=== PATIENT | female | born 1960 | race Caucasian/White ===

== ENCOUNTER → 2018-10-11 10:24 | Outpatient (CLI) | payer OTHER, SELFPAY ==
--- NOTE | 2018-10-11 10:27 | BI_ITS ---
MAMMOGRAPHY - BILATERAL SCREENING 3-D SYLVIA SYNTHESIS REASON FOR EXAM: Female, 58 years old. Bilateral Screening 3-D tomosynthesis PERTINENT HISTORY: No significant family history. TECHNIQUE: 2-D mammograms and 3-D Sylvia synthesis of the breast (s) were performed. CAD was performed. COMPARISON: October 08, 2017 FINDINGS: The breast composition is of heterogeneous dense fibroglandular tissue Scattered benign calcifications are seen. No dense spiculated masses or suspicious microcalcifications are identified. No architectural distortion is identified. There is no skin thickening or retraction. There are a few intramammary lymph nodes bilaterally There has been no significant change since the prior study of October 08, 2017. BI/SCREENING MAMM (CAD), BILAT IMPRESSION: No mammographic signs of malignancy. Routine yearly mammograms recommended. ASSESSMENT CATEGORY: BIRADS Category 1: Negative. A letter regarding these results will be sent to the patient by the facility within 30 days. FOLLOW UP RECOMMENDATION: Yearly follow up mammogram recommended. (A) Approximately 10% of breast cancers are not detected by mammography. A normal mammogram should not delay biopsy of a clinically suspicious abnormality. Electronically Signed: Minal Geiger, at 10:29 EST Tel , Service support ,
== END ==
PROVIDERS: Family Provider Family Medicine; PCP Family Medicine; Referring Provider Preventive Medicine Occupational Medicine; Visit Provider Preventive Medicine Occupational Medicine
DX: Z12.31 Encounter for screening mammogram for malignant neoplasm of breast (principal)
CPT/HCPCS: 77063; 77067

== ENCOUNTER → 2019-03-11 | Outpatient (CLI) | payer BC, SELFPAY ==
[2015-08-29 04:04] VITALS: BMI 31.8
[2019-03-11 08:51] LABS: Absolute Lymphocyte Count 2.87 X10^3/ul (0.83-4.51); Absolute Neutrophil Count 5.5 X10^3/uL (2.0-7.7); Basophil# 0.05 X10^3/uL; Basophil% 0.5 % (0-1); Eosinophil# 0.55 X10^3/uL; Eosinophils% 5.8 % (0-5); Hematocrit 42.8 % (37-47); Hemoglobin 14.2 g/dl (12.0-15.0); Lymphocyte # 2.87 X10^3/ul (4.0); Lymphocyte % 30.4 % (19-41); Mean Corp Hgb Conc 33.2 g/gl (32-36); Mean Corpuscular Hgb 28.3 pg (27.0-32.0); Mean Corpuscular Volume 85.4 fL (81-99); Mean Platelet Vol. 8.9 fl (6.2-12.0); Monocyte# 0.41 X10^3/uL; Monocyte% 4.3 % (0-10); Neutrophil # 5.53 X10^3/uL (2.7-7.7); Neutrophil % 58.7 % (47-70); Platelet Count 253 K/mm3 (150-450); RBC Distribution Width CV 13.8 % (11.6-14.6); RBC Distribution Width SD 42.5 fl (35.1-43.9); Red Blood Count 5.01 M/mm3 (4.2-5.4); White Blood Count 9.4 K/mm3 (4.4-11.0)
[2019-03-11 08:52] LABS: POSITIVE COUNT NO; POSITIVE DIFFERENTIAL NO; POSITIVE MORPHOLOGY NO
[2019-03-11 09:12] LABS: AST(SGOT) 21 U/L (15-37); Alanine Aminotransfer ALT/SGPT 45 U/L (13-56); Albumin, Serum 3.5 g/dL (3.2-5.0); Alkaline Phosphatase 99 U/L (45-117); Anion Gap 5 (5-15); BUN 12 mg/dL (7-18); BUN/Creat Ratio 12.3 RATIO (10-20); Calcium,Total 8.8 mg/dL (8.5-10.1); Chloride 105 mmol/L (98-107); Cholesterol 203 mg/dL (200); Creatinine, Serum 0.97 mg/dL (0.55-1.02); EST Glomerular Filtration Rate 62 mL/min (>60); Est Glom Filt Rate - Afr Amer 75 mL/min (>60); Globulin 3.5 g/dL (2.2-4.2); Glucose 240 mg/dL (74-106); High Density Lipoprotein 29 mg/dL; Sodium Level 139 mmol/L (136-145); Triglycerides 232 mg/dL; Very Low Density Lipoprotein 46 mg/dL (5-40)
== END | disposition home or self-care (01) ==
LOC: LAB.FUTURE 08:12
PROVIDERS: Family Provider Preventive Medicine Occupational Medicine; PCP Preventive Medicine Occupational Medicine; Referring Provider Preventive Medicine Occupational Medicine; Visit Provider Preventive Medicine Occupational Medicine
DX: Z00.00 Encounter for general adult medical examination without abnormal findings (principal)
CPT/HCPCS: 36415; 80053; 80061; 85025

== ENCOUNTER → 2019-10-06 11:43 | Outpatient (CLI) | payer BC, SELFPAY ==
[2019-10-06 13:24] LABS: Cholesterol 193 mg/dL (200); High Density Lipoprotein 47 mg/dL; Triglycerides 51 mg/dL; Very Low Density Lipoprotein 10 mg/dL (5-40)
== END ==
PROVIDERS: Family Provider Preventive Medicine Occupational Medicine; PCP Preventive Medicine Occupational Medicine; Referring Provider Preventive Medicine Occupational Medicine; Visit Provider Preventive Medicine Occupational Medicine
DX: E11.9 Type 2 diabetes mellitus without complications (principal)
CPT/HCPCS: 36415; 80061

== ENCOUNTER → 2019-10-24 07:30 | Outpatient (CLI) | payer BC, SELFPAY ==
--- NOTE | 2019-10-24 07:32 | BI_ITS ---
MAMMOGRAPHY - BILATERAL SCREENING REASON FOR EXAM: Female, 59 years old. Routine annual screening examination. PERTINENT HISTORY: Non-contributory. TECHNIQUE: Digital bilateral breast sylvia (3D mammographic acquisition) in the CC and MLO projections. 2-D mediolateral oblique (MLO) and craniocaudad (CC) views of both breasts were obtained. CAD: Full Field Digital Mammography with Computer Added Detection was performed. COMPARISON: Comparison is made with prior examination dated October 11, 2018 and October 08, 2017. FINDINGS: Breast Composition: The breasts are heterogeneously dense, which may obscure small masses. There are no dominant masses or suspicious calcifications. Stable benign appearing bilateral axillary lymph nodes. No other significant abnormalities are identified. There has been no significant change since the prior study. BI/SCREEN MAMM (CAD) W/SYLVIA BILAT IMPRESSION: Stable bilateral screening mammogram. Yearly follow-up mammogram recommended. (A) ASSESSMENT CATEGORY: BIRADS Category 2: Benign. A letter regarding these results will be sent to the patient by the facility within 30 days. Approximately 10% of breast cancers are not detected by mammography. A normal mammogram should not delay biopsy of a clinically suspicious abnormality. [id number] Electronically Signed: Rubén Bejarano, at 9:33 EST , Service support ,
== END ==
PROVIDERS: Family Provider Preventive Medicine Occupational Medicine; PCP Preventive Medicine Occupational Medicine; Referring Provider Preventive Medicine Occupational Medicine; Visit Provider Preventive Medicine Occupational Medicine
DX: Z12.31 Encounter for screening mammogram for malignant neoplasm of breast (principal)
CPT/HCPCS: 77063; 77067

== ENCOUNTER → 2020-05-21 08:19 | Outpatient (CLI) | payer BC, SELFPAY ==
[2015-08-29 04:04] VITALS: BMI 31.8
[2020-05-21 08:58] LABS: AST(SGOT) 14 U/L (15-37); Alanine Aminotransfer ALT/SGPT 22 U/L (13-56); Cholesterol 141 mg/dL (200); High Density Lipoprotein 45 mg/dL; Triglycerides 86 mg/dL; Very Low Density Lipoprotein 17 mg/dL (5-40)
== END ==
PROVIDERS: PCP Preventive Medicine Occupational Medicine; Referring Provider Preventive Medicine Occupational Medicine; Visit Provider Preventive Medicine Occupational Medicine
DX: E78.00 Pure hypercholesterolemia, unspecified (principal)
CPT/HCPCS: 36415; 80061; 84450; 84460

== ENCOUNTER → 2020-11-22 08:15 | Outpatient (CLI) | payer BC, SELFPAY ==
[2015-08-29 04:04] VITALS: BMI 31.8
[2020-11-22 09:11] LABS: Microalbumin,Random Urine 13.5 mg/L (NO RANGE EST.)
[2020-11-22 09:21] LABS: ALB/GLOB Ratio 1.2 RATIO (0.9-2.4); AST(SGOT) 12 U/L (15-37); Alanine Aminotransfer ALT/SGPT 19 U/L (13-56); Albumin, Serum 4.1 g/dL (3.2-5.0); Alkaline Phosphatase 60 U/L (45-117); Anion Gap 4 (5-15); BUN 14 mg/dL (7-18); BUN/Creat Ratio 17.3 RATIO (10-20); Calcium,Total 9.6 mg/dL (8.5-10.1); Chloride 107 mmol/L (98-107); Cholesterol 139 mg/dL (200); Creatinine, Serum 0.81 mg/dL (0.55-1.02); EST Glomerular Filtration Rate 76 mL/min (>60); Est Glom Filt Rate - Afr Amer 92 mL/min (>60); Globulin 3.5 g/dL (2.2-4.2); Glucose 115 mg/dL (74-106); High Density Lipoprotein 43 mg/dL; Potassium 3.9 mmol/L (3.5-5.1); Protein, Total 7.6 g/dL (6.4-8.2); Sodium Level 140 mmol/L (136-145); Triglycerides 101 mg/dL; Very Low Density Lipoprotein 20 mg/dL (5-40)
== END ==
PROVIDERS: PCP Preventive Medicine Occupational Medicine; Visit Provider Preventive Medicine Occupational Medicine
DX: E11.9 Type 2 diabetes mellitus without complications (principal); E78.00 Pure hypercholesterolemia, unspecified
CPT/HCPCS: 36415; 80053; 80061; 82043

== ENCOUNTER 2021-01-03 10:56 | Outpatient (RCR) | payer BC, SELFPAY ==
[2015-08-29 04:04] VITALS: BMI 31.8
[2021-01-03] MEDS: COVID-19 VACC, MRNA(PFIZER)/PF 30 MCG/0.3 ML SYRINGE IM (08:48)
[2021-01-24] MEDS: COVID-19 VACC, MRNA(PFIZER)/PF 30 MCG/0.3 ML SYRINGE IM (08:29)
== END 2021-01-03 23:59 ==
LOC: IMMUN 10:56
PROVIDERS: PCP Preventive Medicine Occupational Medicine; Visit Provider Family Medicine
DX: Z23 Encounter for immunization (principal)
CPT/HCPCS: 0001A; 0002A; 91300

== ENCOUNTER → 2021-07-15 10:28 | Outpatient (CLI) | payer BC, SELFPAY ==
--- NOTE | 2021-07-15 10:30 | BI_ITS ---
MAMMOGRAPHY - BILATERAL SCREENING REASON FOR EXAM: Female, 61 years old. Routine annual screening examination. PERTINENT HISTORY: Non-contributory. TECHNIQUE: Digital bilateral breast sylvia (3D mammographic acquisition) in the CC and MLO projections. 2-D mediolateral oblique (MLO) and craniocaudad (CC) views of both breasts were obtained. CAD: Full Field Digital Mammography with Computer Added Detection was performed. COMPARISON: Comparison is made with prior study dated 10/24/2019 and 10/11/2018. FINDINGS: Breast Composition: The breasts are extremely dense, which lowers the sensitivity of mammography. There are no dominant masses or suspicious calcifications. Stable small benign-appearing bilateral axillary lymph nodes. No other significant abnormalities are identified. There has been no significant change since the prior study. BI/SCRN MAMM (CAD)W/SYLVIA BILAT IMPRESSION: Stable bilateral screening mammogram. Yearly follow-up mammogram recommended. (A) ASSESSMENT CATEGORY: BIRADS Category 2: Benign. A letter regarding these results will be sent to the patient by the facility within 30 days. Approximately 10% of breast cancers are not detected by mammography. A normal mammogram should not delay biopsy of a clinically suspicious abnormality. [id number] Electronically Signed: Rubén Bejarano MD at 12:09 EDT , Service support ,
== END ==
PROVIDERS: PCP Preventive Medicine Occupational Medicine; Referring Provider Preventive Medicine Occupational Medicine; Visit Provider Preventive Medicine Occupational Medicine
DX: Z12.31 Encounter for screening mammogram for malignant neoplasm of breast (principal)
CPT/HCPCS: 77063; 77067

== ENCOUNTER 2021-11-18 08:27 | Outpatient (CLI) | payer BC, SELFPAY ==
[2021-11-18 08:58] LABS: Hematocrit 42.5 % (37-47); Hemoglobin 13.4 g/dL (12.0-15.0); Mean Corp Hgb Conc 31.5 g/dL (32-36); Mean Corpuscular Hgb 27.2 pg (27.0-32.0); Mean Corpuscular Volume 86.2 fL (81-99); Mean Platelet Vol. 8.9 fl (6.2-12.0); Platelet Count 295 K/mm3 (150-450); RBC Distribution Width CV 13.7 % (11.6-14.6); Red Blood Count 4.93 M/mm3 (4.2-5.4); White Blood Count 8.8 K/mm3 (4.4-11.0)
[2021-11-18 09:33] LABS: ALB/GLOB Ratio 1.1 RATIO (0.9-2.4); AST(SGOT) 14 U/L (15-37); Alanine Aminotransfer ALT/SGPT 20 U/L (13-56); Albumin, Serum 3.8 g/dL (3.2-5.0); Alkaline Phosphatase 74 U/L (45-117); Anion Gap 6 (5-15); BUN 17 mg/dL (7-18); BUN/Creat Ratio 18.8 RATIO (10-20); Chloride 105 mmol/L (98-107); Cholesterol 118 mg/dL (200); Creatinine, Serum 0.91 mg/dL (0.55-1.02); EST Glomerular Filtration Rate 67 mL/min (>60); Est Glom Filt Rate - Afr Amer 81 mL/min (>60); Globulin 3.6 g/dL (2.2-4.2); Glucose 211 mg/dL (74-106); Hemoglobin A1c 6.3 % (3.8-5.6); High Density Lipoprotein 39 mg/dL; Potassium 3.8 mmol/L (3.5-5.1); Protein, Total 7.4 g/dL (6.4-8.2); Sodium Level 139 mmol/L (136-145); Triglycerides 94 mg/dL; Very Low Density Lipoprotein 19 mg/dL (5-40)
[2021-11-18 09:34] LABS: Microalbumin,Random Urine 26.6 mg/L (NO RANGE EST.)
== END 2021-11-18 23:59 | disposition short-term general hospital (02) ==
PROVIDERS: PCP Preventive Medicine Occupational Medicine; Referring Provider Preventive Medicine Occupational Medicine; Visit Provider Preventive Medicine Occupational Medicine
DX: Z00.00 Encounter for general adult medical examination without abnormal findings (principal); E11.9 Type 2 diabetes mellitus without complications
CPT/HCPCS: 36415; 80053; 80061; 82043; 83036; 85027

== ENCOUNTER → 2022-08-11 | Outpatient (CLI) | payer BC, SELFPAY ==
--- NOTE | 2022-08-11 10:29 | BI_ITS ---
MAMMOGRAPHY - BILATERAL SCREENING REASON FOR EXAM: Female, 62 years old. Routine annual screening examination. PERTINENT HISTORY: Non-contributory. TECHNIQUE: Digital bilateral breast sylvia (3D mammographic acquisition) in the CC and MLO projections. 2-D mediolateral oblique (MLO) and craniocaudad (CC) views of both breasts were obtained. CAD: Full Field Digital Mammography with Computer Added Detection was performed. COMPARISON: Comparison is made with prior study dated 07/15/2021 and 10/24/2019. FINDINGS: Breast Composition: The breasts are extremely dense, which lowers the sensitivity of mammography. There are no dominant masses or suspicious calcifications. Stable small benign appearing bilateral axillary lymph nodes. No other significant abnormalities are identified. There has been no significant change since the prior study. BI/SCRN MAMM (CAD)W/SYLVIA BILAT IMPRESSION: Stable bilateral screening mammogram. Yearly follow-up mammogram recommended. (A) ASSESSMENT CATEGORY: BIRADS Category 2: Benign. A letter regarding these results will be sent to the patient by the facility within 30 days. Approximately 10% of breast cancers are not detected by mammography. A normal mammogram should not delay biopsy of a clinically suspicious abnormality. [id number] Electronically Signed: Rubén Bejarano MD at 11:54 EDT ,
== END | disposition home or self-care (01) ==
LOC: OPBI 10:28
PROVIDERS: PCP Preventive Medicine Occupational Medicine; Visit Provider Preventive Medicine Occupational Medicine
DX: Z12.31 Encounter for screening mammogram for malignant neoplasm of breast (principal)
CPT/HCPCS: 77063; 77067

== ENCOUNTER → 2022-12-01 | Outpatient (CLI) | payer BC, SELFPAY ==
[2022-12-01 12:49] LABS: Hematocrit 41.3 % (37-47); Hemoglobin 12.8 g/dL (12.0-15.0); Mean Corpuscular Hgb 27.1 pg (27.0-32.0); Mean Corpuscular Volume 87.5 fL (81-99); Mean Platelet Vol. 9.6 fl (6.2-12.0); Platelet Count 315 K/mm3 (150-450); RBC Distribution Width CV 13.8 % (11.6-14.6); RBC Distribution Width SD 44.5 fl (35.1-43.9); Red Blood Count 4.72 M/mm3 (4.2-5.4); White Blood Count 10.4 K/mm3 (4.4-11.0)
[2022-12-01 13:15] LABS: ALB/GLOB Ratio 1.1 RATIO (0.9-2.4); AST(SGOT) 13 U/L (15-37); Alanine Aminotransfer ALT/SGPT 22 U/L (13-56); Albumin, Serum 3.8 g/dL (3.2-5.0); Alkaline Phosphatase 67 U/L (45-117); Anion Gap 7 (5-15); BUN 21 mg/dL (7-18); BUN/Creat Ratio 25.5 RATIO (10-20); Chloride 105 mmol/L (98-107); Cholesterol 124 mg/dL (200); Creatinine, Serum 0.82 mg/dL (0.55-1.02); EST Glomerular Filtration Rate 74 mL/min (>60); Est Glom Filt Rate - Afr Amer 90 mL/min (>60); Globulin 3.4 g/dL (2.2-4.2); Glucose 94 mg/dL (74-106); High Density Lipoprotein 37 mg/dL; Potassium 4.3 mmol/L (3.5-5.1); Protein, Total 7.2 g/dL (6.4-8.2); Sodium Level 139 mmol/L (136-145); Triglycerides 123 mg/dL; Very Low Density Lipoprotein 25 mg/dL (5-40)
[2022-12-01 13:18] LABS: Hemoglobin A1c 6.7 % (3.8-5.6)
== END | disposition home or self-care (01) ==
PROVIDERS: PCP Preventive Medicine Occupational Medicine; Referring Provider Preventive Medicine Occupational Medicine; Visit Provider Preventive Medicine Occupational Medicine
DX: Z00.00 Encounter for general adult medical examination without abnormal findings (principal); E11.9 Type 2 diabetes mellitus without complications
CPT/HCPCS: 36415; 80053; 80061; 83036; 85027

== ENCOUNTER → 2023-08-31 | Outpatient (CLI) | payer MEDICARE, SELFPAY ==
--- NOTE | 2023-08-31 14:15 | BI_ITS ---
MAMMOGRAPHY - BILATERAL SCREENING REASON FOR EXAM: Female, 63 years old. Routine annual screening examination. PERTINENT HISTORY: Daughter with breast cancer. TECHNIQUE: Digital bilateral breast sylvia (3D mammographic acquisition) in the CC and MLO projections. 2-D mediolateral oblique (MLO) and craniocaudad (CC) views of both breasts were obtained. CAD: Full Field Digital Mammography with Computer Added Detection was performed. COMPARISON: Comparison is made with prior examination August 11, 2022 and July 15, 2021. FINDINGS: Breast Composition: The breasts are extremely dense, which lowers the sensitivity of mammography. There are no dominant masses or suspicious calcifications. Stable benign-appearing bilateral axillary lymph nodes. No other significant abnormalities are identified. There has been no significant change since the prior study. BI/SCRN MAMM (CAD)W/SYLVIA BILAT IMPRESSION: Stable bilateral screening mammogram. Yearly follow-up mammogram recommended. (A) ASSESSMENT CATEGORY: BIRADS Category 2: Benign. A letter regarding these results will be sent to the patient by the facility within 30 days. Approximately 10% of breast cancers are not detected by mammography. A normal mammogram should not delay biopsy of a clinically suspicious abnormality. [id number] Electronically Signed: Rubén Bejarano MD at 15:13 EST ,
== END | disposition home or self-care (01) ==
LOC: OPBI 14:14
PROVIDERS: PCP Preventive Medicine Occupational Medicine; Referring Provider Preventive Medicine Occupational Medicine; Visit Provider Preventive Medicine Occupational Medicine
DX: Z12.31 Encounter for screening mammogram for malignant neoplasm of breast (principal); Z80.3 Family history of malignant neoplasm of breast
CPT/HCPCS: 77063; 77067

== ENCOUNTER → 2023-12-14 | Outpatient (CLI) | payer MEDICARE, SELFPAY ==
[2023-12-14 11:48] LABS: Hemoglobin A1c 6.9 % (3.8-5.6); Microalbumin,Random Urine 7.5 mg/L (NO RANGE EST.); Microalbumin:Creatinine Ratio 10.4 mg/g CRE (<30 mg/g CRE)
[2023-12-14 12:07] LABS: ALB/GLOB Ratio 1.3 RATIO (0.9-2.4); AST(SGOT) 24 U/L (15-37); Alanine Aminotransfer ALT/SGPT 29 U/L (13-56); Albumin, Serum 4.1 g/dL (3.2-5.0); Alkaline Phosphatase 67 U/L (45-117); Anion Gap 4 (5-15); BUN 14 mg/dL (7-18); BUN/Creat Ratio 18.9 RATIO (10-20); Calcium,Total 9.1 mg/dL (8.5-10.1); Chloride 110 mmol/L (98-107); Cholesterol 100 mg/dL (200); Creatinine, Serum 0.74 mg/dL (0.55-1.02); EST Glomerular Filtration Rate 84 mL/min (>60); Est Glom Filt Rate - Afr Amer 101 mL/min (>60); Globulin 3.1 g/dL (2.2-4.2); Glucose 99 mg/dL (74-106); High Density Lipoprotein 33 mg/dL; Protein, Total 7.2 g/dL (6.4-8.2); Sodium Level 141 mmol/L (136-145); Triglycerides 56 mg/dL; Very Low Density Lipoprotein 11 mg/dL (5-40)
== END | disposition home or self-care (01) ==
LOC: LAB 11:01
PROVIDERS: PCP Preventive Medicine Occupational Medicine; Visit Provider Preventive Medicine Occupational Medicine
DX: E11.9 Type 2 diabetes mellitus without complications (principal); E78.00 Pure hypercholesterolemia, unspecified
CPT/HCPCS: 36415; 80053; 80061; 82043; 82570; 83036

== ENCOUNTER → 2024-09-19 | Outpatient (CLI) | payer MEDICARE, SELFPAY | END | disposition home or self-care (01) | LOC: OPBI 10:59 | PROVIDERS: PCP Preventive Medicine Occupational Medicine; Referring Provider Preventive Medicine Occupational Medicine; Visit Provider Preventive Medicine Occupational Medicine | DX: Z12.31 Encounter for screening mammogram for malignant neoplasm of breast (principal) | CPT/HCPCS: 77063; 77067 ==

== ENCOUNTER 2025-03-13 18:45 | Emergency (ER) | payer MEDICARE, SELFPAY ==
[2025-03-13 18:46] VITALS: BP 138/75; PULSE 86; RESP 15; TEMP 36.2; O2SAT 99; BMI 26.6
--- NOTE | 2025-03-13 19:13 | US_ITS ---
PROCEDURE: GALLBLADDER 03/13/2025 REASON FOR EXAM: PAIN FINDINGS: Normal appearance to the liver and no evidence of intrahepatic biliary dilatation. No Hernandez's sign involving the gallbladder. No gallstones or pericholecystic fluid. Pancreas and right kidney unremarkable. No hydronephrosis. There is a cyst with septation in the right lobe of the liver measuring 61 x 68 x 76 mm US/Gallbladder IMPRESSION: Normal gallbladder. Liver cyst. [facility]
[2025-03-13] MEDS: Ondansetron 4 MG/2 ML Vial IV ×2 (19:20→20:35)
[2025-03-13] MEDS: 0.9% Normal Saline (1000mL) 1,000 ML 125 ML IV (19:20)
[2025-03-13] MEDS: Famotidine 200 MG/20 ML MDV 20 MG in 0.9% Normal Saline (Pres. free 8 ML 300 MG IV (19:22)
[2025-03-13 19:27] LABS: Absolute Lymphocyte Count 0.69 X10^3/uL (0.83-4.51); Absolute Neutrophil Count 8.2 X10^3/uL (2.0-7.7); Basophil# 0.03 X10^3/uL; Basophil% 0.3 % (0-1); Eosinophil# 0.31 X10^3/uL; Eosinophils% 3.2 % (0-5); Hematocrit 38.3 % (37-47); Hemoglobin 12.6 g/dL (12.0-15.0); Lymphocyte # 0.69 X10^3/ul (0.83-4.51); Lymphocyte % 7.1 % (19-41); Mean Corp Hgb Conc 32.9 g/dL (32-36); Mean Corpuscular Hgb 27.5 pg (27.0-32.0); Mean Corpuscular Volume 83.6 fL (81-99); Mean Platelet Vol. 8.7 fl (6.2-12.0); Monocyte# 0.39 X10^3/uL; NRBC Flagged by Analyzer 0 % (0-5); Neutrophil # 8.24 X10^3/uL (2.7-7.7); Neutrophil % 85.1 % (47-70); Platelet Count 263 K/mm3 (150-450); RBC Distribution Width CV 14.5 % (11.6-14.6); RBC Distribution Width SD 43.8 fl (35.1-43.9); Red Blood Count 4.58 M/mm3 (4.2-5.4); White Blood Count 9.7 K/mm3 (4.4-11.0)
--- NOTE | 2025-03-13 19:33 | ED.VIS.GI ---
HPI HPI - GI History of Present Illness Chief Complaint: Abd Pain Informant: patient Narrative Narrative: Presents for evaluation 2-week history of pain across her upper abdomen after she eats. States typically 30 minutes or an hour after she eats. She switched over to a brat diet. She states this is taking the edge off of symptoms. She cannot recall any specific meal that worsening her symptoms. She ate pancakes and hashbrowns this morning around 1030. There is no cheese no butter. Pain is across her abdomen. Nausea without vomiting. No black or bloody stools. No fever or chills. She has had 2 C-sections in the past denies any other abdominal surgeries. Allergies to penicillin and sulfa. Prior similar symptoms: No PFSH PFS Medical History (Updated 03/13/25 @ 21:[address] Atilio Sandoval DO) Diabetes mellitus Home Medications ?Medication ?Instructions ?Recorded ?Last Taken ?Type Buspirone Hcl 7.5 mg PO BID 08/29/15 Unknown History citalopram 20 mg tablet 20 mg PO DAILY 08/29/15 Unknown History atorvastatin 20 mg tablet 20 mg PO DAILY 03/13/25 Unknown History lisinopril 2.5 mg tablet 2.5 mg PO DAILY 03/13/25 Unknown History metformin 500 mg tablet,extended 2,000 mg PO DAILY 03/13/25 Unknown History release 24 hr ondansetron 4 mg disintegrating 4 mg PO Q8H PRN PRN Nausea #10 tabs 03/13/25 Unknown Rx tablet pantoprazole 40 mg tablet,delayed 40 mg PO DAILY #30 tabs 03/13/25 Unknown Rx release sucralfate 1 gram tablet (Carafate) 1 g PO Q6H #60 tabs 03/13/25 Unknown Rx zolpidem 10 mg tablet 10 mg PO QHS PRN PRN insomnia 03/13/25 Unknown History Allergy/AdvReac Type Severity Reaction Status Date / Time Penicillins (PCN) Allergy Abd Verified 03/13/25 18:45 cramps/diarrhea Sulfa (Sulfonamide Allergy Hives Verified 03/13/25 18:45 Antibiotics) Social History Smoking Status: Never smoker ROS ROS ED Constitutional Constitutional ED: Denies chills, fever(s) or sweats ENT ENT ED: Denies sore throat Cardiovascular Cardiovascular: Denies chest pain, leg edema, palpitations or racing heartbeat Respiratory/Chest Respiratory/Chest: Denies cough, dyspnea or dyspnea on exertion Gastrointestinal Gastrointestinal: Reports abdominal pain and nausea; Denies diarrhea or vomiting Genitourinary Genitourinary ED: Denies dysuria, hematuria or urinary frequency Musculoskeletal Musculoskeletal: Denies back pain, extremity pain or neck pain Integumentary Denies rash or wounds Neurologic Neurologic: Denies headache(s), paresthesias or weakness EXAM Physical Exam Const Vital Signs: 03/13/25 18:46 03/13/25 20:45 03/13/25 21:27 Temperature 97.2 F L 100 F H Temperature Source Temporal Pulse Rate 86 68 70 Respiratory Rate 15 16 14 Blood Pressure 138/75 H 118/57 L 115/85 H Blood Pressure Mean 96 77 95 Pulse Ox 99 94 97 Oxygen Delivery Method Room Air Room Air Positive well nourished and well developed General Appearance ED: well developed and NAD HEENT Reports moist mucous membranes normocephalic and atraumatic Eyes General Eye ED: Yes normal appearance of both eyes Neck full ROM Chest Wall Chest: Negative for tenderness Resp normal respiratory effort and normal air movement Effort and Inspection: symmetric chest movement; Negative for respiratory distress Cardio regular rate, regular rhythm and no murmurs Peripheral Pulses: pulses 2+ throughout GI normal to inspection, nondistended, normoactive bowel sounds GI Narrative: Tenderness pain more epigastrium very minimal right upper quadrant. Negative McBurney's. There is no guarding or rebound. Palpation: Negative for guarding or rebound tenderness present Extremity normal to inspection General Extremety ED: Negative for edema or tenderness General Extremity: Negative for edema Neuro oriented x3 and no sensory deficits noted Sensorium / Orientation: awake and alert Skin no rashes or lesions noted and no wounds MDM MDM MDM Narrative Medical decision making narrative: Interventions / MDM: Differential diagnosis: Gastritis, biliary colic, liver cyst Diagnosis considered but do not suspect: Cholelithiasis, cholecystitis however ultrasound negative. Pancreatitis however lipase normal. My EKG interpretation: N/A Imaging independently reviewed and interpreted by myself: Right upper quadrant ultrasound: Reviewed by myself however interpreted by radiology and normal gallbladder structures no cholelithiasis. There was hepatic liver cysts up to 6.8 cm. External documents reviewed: N/A Test considered but not ordered:N/A ED course: Nontoxic. Pain across upper abdomen 30 minutes to an hour after meals. Last ate at 10:30 AM. Will check abdominal labs. Will obtain right upper quadrant ultrasound as biliary colic primary concern this time. Fluids started Zofran and Pepcid ordered to help with symptoms. Symptoms improved on reevaluation ultrasounds are negative for any gallbladder pathology there is incidental finding right hepatic cyst. I discussed results with the patient. Abdominal labs are normal. Clinically was feeling better. She is placed on pantoprazole Carafate as needed Zofran. Meds to bed sent home with the patient. She follows GI Dr. Nixon. Discussed following up with him for outpatient evaluation. Discussed follow-up with her PCP or GI doctor for her hepatic cysts. All questions were answered. Re-evaluation: stable Disposition discussed with patient/family/significant other: Patient and spouse Case discussed with consulting clinician: N/A This note was generated with [employer] dictation software. It may contain incorrect words, spelling, and punctuation that were not noted in checking the note before signing. Lab Data Attestation: I reviewed the patient's lab results. Labs: Laboratory Results - last 24 hr 03/13/25 19:20 WBC 9.7 RBC 4.58 Hgb 12.6 Hct 38.3 MCV 83.6 MCH 27.5 MCHC 32.9 RDW Std Deviation 43.8 RDW Coeff of Kaia 14.5 Plt Count 263 MPV 8.7 Immature Gran % (Auto) 0.300 Neut % (Auto) 85.1 H Lymph % (Auto) 7.1 L [place] % (Auto) 4.0 Eos % (Auto) 3.2 Baso % (Auto) 0.3 Absolute Neuts (auto) 8.2 H Absolute Lymphs (auto) 0.69 L Nucleated RBC % 0 Sodium 139 Potassium 3.9 Chloride 104 Carbon Dioxide 22.2 Anion Gap 13 BUN 17 Creatinine 0.88 Estim Creat Clear Calc 53.81 Est GFR (MDRD) Non-Af 73 BUN/Creatinine Ratio 19.1 Glucose 144 H Calcium 9.3 Total Bilirubin 1.19 Direct Bilirubin 0.53 H AST 18 ALT 10 Alkaline Phosphatase 63 Total Protein 6.8 Albumin 4.4 Globulin 2.4 Lipase 37 Radiography Diagnostic Testing: Clinical Impression(s) from Imaging Studies Gallbladder Ultrasound 05/26/25 19:13 IMPRESSION: Normal gallbladder. Liver cyst. Reading Location: [facility] Discharge Plan Triage Chief Complaint: Abd Pain ED Provider: Atilio Sandoval Dx/Rx/DC Orders Clinical Impression: Gastritis, Liver cyst Instructions: ED Gastritis (Adult) Prescriptions: New sucralfate [Carafate] 1 gram tablet 1 g PO Q6H Qty: 60 0RF pantoprazole 40 mg tablet,delayed release (DR/EC) 40 mg PO DAILY Qty: 30 0RF ondansetron 4 mg tablet,disintegrating 4 mg PO Q8H PRN PRN (Reason: Nausea) Qty: 10 0RF No Action citalopram 20 MG tablet 20 mg PO DAILY Patient Comments: Buspirone Hcl 15 MG tablet 7.5 mg PO BID Patient Comments: atorvastatin 20 mg tablet 20 mg PO DAILY zolpidem 10 mg tablet 10 mg PO QHS PRN PRN (Reason: insomnia) metformin 500 mg tablet extended release 24 hr 2,000 mg PO DAILY lisinopril 2.5 mg tablet 2.5 mg PO DAILY Primary Care Provider: JOSE PATEL Referrals: Ortiz Rodgers DO [Non-Staff] - 1 Week Anthony Nixon MD [Non-Staff] - 1-2 Weeks Activity Restrictions/Additional Instructions: Gallbladder ultrasound with normal gallbladder. No gallstones. You have a 6.8 cm liver cyst on the right side. Labs were normal. Take medications as prescribed. Monitor for any black or bloody stools. Follow-up with Dr. Nixon for your symptoms. Follow-up with your PCP or Dr. Nixon discuss your liver cyst. Print Language: Israeli Disposition Disposition: Home, Self Care Discharge Date/Time: 03/13/25 21:32
[2025-03-13 20:13] LABS: AST(SGOT) 18 U/L (<=31); Alanine Aminotransfer ALT/SGPT 10 U/L (<=34); Albumin, Serum 4.4 g/dL (3.4-4.8); Alkaline Phosphatase 63 U/L (35-104); Anion Gap 13 (5-15); BUN 17 mg/dL (4-19); BUN/Creat Ratio 19.1 RATIO (10-20); Bilirubin, Direct 0.53 mg/dL (0.00-0.30); Calcium,Total 9.3 mg/dL (7.6-11.0); Carbon Dioxide 22.2 mmol/L (21.0-32.0); Chloride 104 mmol/L (98-108); Creatinine, Serum 0.88 mg/dL (0.70-1.20); EST Glomerular Filtration Rate 73 (>60); Estimated Creatinine Clearance 53.81 ml/min (50-250); Globulin 2.4 g/dL (2.2-4.2); Glucose 144 mg/dL (70-99); Lipase 37 U/L (13-75); Potassium 3.9 mmol/L (3.3-5.1); Protein, Total 6.8 g/dL (5.9-8.4); Sodium Level 139 mmol/L (133-145); Total Bilirubin 1.19 mg/dL (0.00-1.30)
[2025-03-13 20:45] VITALS: BP 118/57; PULSE 68; RESP 16; O2SAT 94
[2025-03-13 21:27] VITALS: BP 115/85; PULSE 70; RESP 14; TEMP 37.7; O2SAT 97
== END 2025-03-13 21:32 | disposition home or self-care (01) ==
PROVIDERS: Emergency Provider Emergency Medicine; PCP Nurse Practitioner Family; Visit Provider Emergency Medicine
DX: K29.70 Gastritis, unspecified, without bleeding (principal); E11.9 Type 2 diabetes mellitus without complications; K76.89 Other specified diseases of liver; Z79.84 Long term (current) use of oral hypoglycemic drugs; Z79.899 Other long term (current) drug therapy; Z88.0 Allergy status to penicillin; Z88.2 Allergy status to sulfonamides
CPT/HCPCS: 76705; 80048; 80076; 83690; 85025; 96361; 96374; 96375; 96376; 99284; A4216; J2405

== ENCOUNTER 2025-04-17 06:36 | Day surgery (SDC) | payer MEDICARE, SELFPAY ==
[2025-04-17] VITALS (9 sets, daily range): BP systolic 121–133; BP diastolic 65–83; PULSE 59–71; RESP 14–16; TEMP 36.3–37.1; O2SAT 92–97; BMI 26.2
--- OUTSIDE RECORDS SUMMARY | 2025-04-17 06:40 | XMS RPT_ITS | CCD ---
Author Organization [facility] Care Team Providers Care Health Worker Name Role Phone NOLBERTO RODGERS DO Primary Care Physician [phone] NOLBERTO RODGERS DO Primary Care Unavailable ABDULLAHI EDWARDS, GERI Attending Unavailable GERI FERNANDO MD Consulting Unavailable NOLBERTO RODGERS DO Primary Care Unavailable NOLBERTO RODGERS DO Attending Unavailable NOLBERTO RODGERS DO Attending Unavailable NOLBERTO RODGERS DO Primary Care Unavailable NOLBERTO RODGERS DO Attending Unavailable NOLBERTO RODGERS DO Primary Care Unavailable OZIEL RUSHING, NOLBERTO Primary Care Unavailable ABDULLAHI EDWARDS, GERI Attending Unavailable Dr. Atilio Sandoval DO Emergency Provider AMANDA STUDENT DRIVING INSTRUCTOR-C, JOSE Primary Care Provider [phone] Dr. Atilio Sandoval DO Attending Provider [phone] AMANDA STUDENT DRIVING INSTRUCTOR-C, JOSE Referring Provider Dr. Nima Jones MD Attending Provider Ra Cristianahsaan Attending Unavailable AMANDA, JOSE Primary Care Unavailable AMANDA, JOSE Referring Unavailable Nima Jones Attending Unavailable AMANDA, JOSE Primary Care Unavailable AMANDA, JOSE Referring Unavailable Nolberto Rodgers Primary Care Unavailable Nolberto Rodgers Attending Unavailable Nolberto Rodgers Referring Unavailable Atilio Sandoval Attending Unavailable AMANDA, JOSE Primary Care Unavailable AMANDA, JOSE Primary Care Unavailable AMANDA, JOSE Attending Unavailable Nima Jones Attending Unavailable Nima Jones Referring Unavailable AMANDA, JOSE Primary Care Unavailable Allergies Allergy Classification Reported Allergen(s) Allergy Type Date of Onset Reaction(s) Facility Penicillins (antibiotic) (1 source) Penicillins; Translations: [penicillins] Drug Allergy [facility] Sulfonamides (antibiotic) (1 source) Sulfonamide; Translations: [sulfa drugs] Drug Allergy [facility] (6 sources) Penicillins Allergy to substance 1 Abd cramps/diarrhea [facility] (6 sources) Sulfonamides (Antibiotic) Allergy to substance 5 Hives [facility] (2 sources) Penicillins; Translations: [penicillins] Drug allergy [facility] (2 sources) Sulfonamide; Translations: [sulfa drugs] Drug allergy [facility] (1 source) Penicillins Drug allergy (disorder) 5 [facility] Repository (1 source) Sulfonamides (Antibiotic) Drug allergy (disorder) 5 [facility] Repository Medications Current Medications Medication Drug Class(es) Dates Sig (Normalized) Sig (Original) atorvastatin 20 mg oral tablet (5 sources) HMG-CoA Reductase Inhibitor Start: 03-13-2025 take 1 tablet by mouth once daily Atorvastatin 20 mg tablet Active 20 mg PO DAILY March 13, 2025 12:00am Start: 12-21-2023 End: 01-24-2025 atorvastatin 20 mg oral tabl et Dose : 20 mg = 1 tab(s), Oral, qDay, # 100 tab(s), 3 Refill(s), Pharmacy: [id number], Hypercholesterolemia, 153, cm, 12/21/23 8:35:00 EST, Height, kg, 12/21/23 8:35:00 EST, Dosing Weight Start Date: 12/21/23 Stop Date: 01/24/25 Status: Ordered Start: 12-22-2022 atorvastatin 2 0 mg oral tablet Dose : 20 mg = 1 tab(s), Oral, qDay, # 90 tab(s), 3 Refill(s), Pharmacy: [facility], Hypercholesterolemia, 156, cm, 12/08/22 9:07:00 EST, Height, kg, 12/08/22 9:07:00 EST, Dosing Weight Start Date: 12/22/22 Status: Ordered baclofen 5 mg oral tablet (2 sources) gamma-Aminobutyric Acid-ergic Agonist Start: 03-23-2025 take 1 tablet by mouth three times daily Baclofen 5 mg tablet Active 5 mg PO THREE TIMES A DAY March 23, 2025 12:00am Start: 05-26-2022 End: 06-25-2022 baclofen 10 mg oral tablet D ose : 10 mg = 1 tab(s), Oral, TID, PRN Spasm, # 90 tab(s), 0 Refill(s), Pharmacy: [facility], Spasm of muscle of lower back, 155, cm, 05/26/22 9:25:00 EDT, Height Start Date: 05/26/22 Stop Date: 06/25/22 Status: Ordered busPIRone hydrochloride 15 m g oral tablet (9 sources) Start: 11-10-2023 busPIRone 15 m g oral tablet Dose : 22.5 mg = 1.5 tab(s), Oral, BID, # 270 tab(s), 3 Refill(s), Pharmacy: [facility], 155, cm, 11/10/23 10:38:00 EST, Height, kg, 11/10/23 10:38:00 EST, Dosing Weight Start Date: 11/10/23 Status: Ordered Start: 08-29-2015 take 7.5 mg by mouth twice aleksey ly Buspirone Hcl 15 MG tablet Active 7.5 mg PO TWICE A DAY August 29, 2015 1:00am Start: 08-29-2015 take 7.5 mg by mouth twice aleksey ly Buspirone Hcl Active 7.5 MG PO TWICE A DAY August 29, 2015 12:00am citalopram 20 mg oral tablet (9 sources) Serotonin Reuptake Inhibitor Start: 08-29-2015 take 1 tablet by mouth once daily Citalopram 20 MG tablet Active 20 mg PO DAILY August 29, 2015 1:00am [facility] (3 sources) Start: 06-03-2021 DME [facility] See Instructions, Dispense Dexcom transmitter units, #3, use as directed to monitor blood sugar continuously, change unit every 10days. Diagnosis: E 11.9, # 3 EA, 11 Refill(s), Pharmacy: [facility], Diabetes, 156, cm, 06/03/21 10:08:00 EDT, Height, 67.3, kg, 06/03/21 10:08:00 EDT, Dosing Weight Start Date: 06/03/21 Status: Ordered ketotifen 0.25 mg/ml ophthalmic solution (1 source) Histamine-1 Receptor Inhibitor Start: 04-28-2024 take 1 dose into the eye(s) every eight hours [place] Preservative Free 0.025% ophthalmic solution Dose = 1 drop(s), q8h, 0 Refill(s) Start Date: 04/28/24 Status: Ordered lisinopril 2.5 mg oral tablet (5 sources) Angiotensin Converting Enzyme Inhibitor Start: 03-13-2025 take 1 tablet by mouth once daily Lisinopril 2.5 mg tablet Active 2.5 mg PO DAILY March 13, 2025 12:00am Start: 10-20-2023 End: 11-23-2024 take 1 tablet by mouth once daily lisinopril 2.5 mg oral tablet TAKE 1 TABLET BY MOUTH ONCE DAILY Start Date: 04/25/24 Status: Ordered 24 hr metFORMIN hydrochlorid e 500 mg extended release oral tablet (5 sources) Biguanide Start: 03-13-2025 Metformin 500 mg tablet extended release 24 hr Active 2000 mg PO DAILY March 13, 2025 12:00am Start: 02-22-2024 End: 03-28-2025 metFORMIN 500 mg oral tablet EXTENDED RELEASE Dose : 2,000 mg = 4 tab(s), Oral, Daily, # 400 tab(s), 3 Refill(s), Pharmacy: [facility], 153, cm, 12/21/23 8:35:00 EST, Height, kg, 12/21/23 8:35:00 EST, Dosing Weight Start Date: 02/22/24 Stop Date: 03/28/25 Status: Ordered Start: 03-02-2023 metFORMIN 500 mg oral tablet EXTENDED RELEASE Dose : 2,000 mg = 4 tab(s), Oral, Daily, # 360 tab(s), 3 Refill(s), Pharmacy: [facility], 156, cm, 12/08/22 9:07:00 EST, Height, kg, 12/08/22 9:07:00 EST, Dosing Weight Start Date: 03/02/23 Status: Ordered ondansetron 4 mg disintegrating oral tablet (8 sources) Serotonin-3 Receptor Antagonist Start: 03-13-2025 take 1 tablet by mouth every eight hours as needed for nausea Ondansetron 4 mg tablet,disintegrating Active 4 mg PO EVERY 8 HOURS NEEDED as needed for Nausea March 13, 2025 12:00am Start: 08-29-2015 End: 03-13-2025 take 1 tablet by mouth every eight hours as needed for nausea Ondansetron (Zofran Odt) 8 MG tablet,disintegrating Discontinued 8 mg PO EVERY 8 HOURS NEEDED as needed for Nausea August 29, 2015 1:00am March 13, 2025 7:31pm ONETOUCH DELICA MIGEL 33G MIS (3 sources) Start: 09-19-2020 ONETOUCH DELIC A MIGEL 33G MIS ONETOUCH DELICA MIGEL 33G MIS, See Instructions, USE TO CHECK GLUCOSE ONCE DAILY, # 100 EA, 3 Refill(s), Pharmacy: [facility], 154, cm, 06/04/20 15:29:00 EDT, Height, 66.2, kg, 06/04/20 15:29:00 EDT, Dosing Weight Start Date: 09/19/20 Status: Ordered pantoprazole 40 mg delayed release oral tablet (3 sources) Proton Pump Inhibitor Start: 03-27-2025 take 1 tablet by mouth twice daily Pantoprazole 40 mg tablet,delayed release (DR/EC) Active 40 mg PO TWICE A DAY 60 March 27, 2025 2:10pm Start: 03-13-2025 End: 03-27-2025 take 1 tablet by mouth once daily Pantoprazole 40 mg tablet,delayed release (DR/EC) Discontinued 40 mg PO DAILY March 13, 2025 12:00am March 27, 2025 2:11pm PreserVision AREDS (2 sources) Start: 04-13-2024 PreserVision A REDS 0 Refill(s) Start Date: 04/13/24 Status: Ordered sucralfate 1000 mg oral tablet (3 sources) Aluminum Complex Start: 03-27-2025 take 1 tablet by mouth once at mealtime Sucralfate (Carafate) 1 gram tablet Active 1 g PO .TIDAC 90 March 27, 2025 2:08pm April 25, 2025 12:00am 1 hour prior to meal Start: 03-13-2025 End: 03-27-2025 take 1 tablet by mouth every six hours Sucralfate (Carafate) 1 gram tablet Discontinued 1 g PO EVERY 6 HOURS 60 March 13, 2025 12:00am March 27, 2025 2:11pm zolpidem tartrate 10 mg oral tablet (5 sources) gamma-Aminobutyric Acid-ergic Agonist Start: 03-13-2025 take 1 tablet by mouth at bedtime as needed Zolpidem 10 mg tablet Active 10 mg PO AT BEDTIME NEEDED as needed for insomnia March 13, 2025 12:00am Start: 04-25-2024 take 1 tablet by alonso th once daily at bedtime as needed for sleep zolpidem 10 mg oral tablet TAKE 1 TABLET BY MOUTH EVERY DAY AT BEDTIME NEEDED FOR SLEEP FOR 90 DAYS Start Date: 04/25/24 Status: Ordered Start: 10-20-2023 End: 01-18-2024 zolpidem 10 mg oral tablet D ose : 10 mg = 1 tab(s), Oral, qHS, PRN as needed for sleep, X 90 day(s), # 90 tab(s), 0 Refill(s), 01/18/24 8:29:00 PM EDT, Pharmacy: [facility], Insomnia, 155, cm, 09/21/23 8:34:00 EST, Height, 68.4, kg, 09/21/23 8:34:00 EST, Dosing Weight Start Date: 10/20/23 Stop Date: 01/18/24 Status: Ordered Completed/Discontinued Medications Medication Drug Class(es) Dates Sig (Normalized) Sig (Original) amitriptyline hydrochloride 25 mg oral tablet (6 sources) Tricyclic Antidepressant Start: 08-29-2015 End: 03-13-2025 take 1 tablet by mouth once daily Amitriptyline 25 MG tablet Discontinued 25 mg PO DAILY August 29, 2015 1:00am March 13, 2025 7:32pm dicyclomine hydrochloride 10 mg oral capsule (6 sources) Anticholinergic Start: 08-29-2015 End: 03-13-2025 take 2 capsules by mouth every six hours as needed for pain Dicyclomine 10 MG capsule Discontinued 20 mg PO EVERY 6 HOURS NEEDED as needed for Abdominal Pain August 29, 2015 6:13am March 13, 2025 7:31pm Start: 08-29-2015 take 20 mg by mouth every six hours as needed Dicyclomine Active 20 MG PO EVERY 6 HOURS NEEDED August 29, 2015 5:13am valACYclovir 500 mg oral tablet (1 source) Herpesvirus Nucleoside Analog DNA Polymerase Inhibitor, Herpes Simplex Virus Nucleoside Analog DNA Polymerase Inhibitor, Herpes Zoster Virus Nucleoside Analog DNA Polymerase Inhibitor Start: 09-09-2022 End: 12-08-2022 valACYclovir 500 mg oral tablet Dose : 500 mg = 1 tab(s), Oral, qDay, in absense of PCP, # 90 tab(s), 0 Refill(s), Pharmacy: [facility], 154, cm, 09/01/22 9:36:00 EST, Height, 68.5, kg, 09/01/22 9:36:00 EST, Dosing Weight Start Date: 09/09/22 Stop Date: 12/08/22 Status: Ordered Problems Active Problems Problem Classification Problem Date Documented Date Episodic/Chronic Abdominal pain (1 source) Unspecified abdominal pain; Translations: [Unspecified abdominal pain] Onset: 03-17-20 Episodic Acquired foot deformities (3 sources) Bunion 04-19-2019 Episodic Allergic reactions (3 sources) Eczema of lower leg 12-02-2021 Episodic Anxiety disorders (3 sources) Anxiety 04-19-2019 Chronic Diabetes mellitus without complication (4 sources) Diabetes mellitus; Translations: [Type 2 diabetes mellitus without complications] Onset: 04-10-2010-31-2019 Chronic Diseases of mouth; excluding dental (3 sources) Burning mouth syndrome 03-04-2021 Episodic Disorders of lipid metabolism (3 sources) Pure hypercholesterolemia 10-31-2019 Chroni c Gastritis and duodenitis (3 sources) Gastritis; Translations: [Gastritis, unspecified, without bleeding] Onset: 04-14-2003-13-2025 Episodic Malaise and fatigue (3 sources) Fatigue 11-10-2023 Episodic Miscellaneous mental health disorders (3 sources) Primary insomnia 01-17-2021 Chronic Mood disorders (2 sources) Depressive disorder 04-13-2024 Chronic Nausea and vomiting (10 sources) Diarrhea and vomiting; Translations: [Vomiting, unspecified] Onset: 04-14-20 25 08-30-2015 Episodic Other and unspecified benign neoplasm (2 sources) Lipoma (clinical) 03-23-2024 Episodic Other connective tissue disease (3 sources) Muscle pain 06-04-2020 Episodic Other gastrointestinal disorders (1 source) Diarrhea 11-10-2023 Episodic Other injuries and conditions due to external causes (6 sources) Systemic inflammatory response syndrome; Translations: [Systemic inflammatory response syndrome (SIRS) of non-infectious origin without acute organ dysfunction] 08-30-2015 Episodic Other liver diseases (3 sources) Liver cyst; Translations: [Other specified diseases of liver] 03-13-2025 Chronic Other liver diseases (1 source) Other specified diseases of liver; Translations: [Other specified diseases of liver] Onset: 04-14-20 Chronic Other non-traumatic joint disorders (3 sources) Knee pain 12-08-2022 Episodic Spondylosis; intervertebral disc disorders; other back problems (3 sources) Degeneration of lumbar intervertebral disc 05-26-2022 Chronic Spondylosis; intervertebral disc disorders; other back problems (3 sources) Lumbar radiculopathy 05-26-2022 Episodic Unclassified (3 sources) Patient encounter status 12-03-2020 Viral infection (3 sources) Herpes simplex of female genitalia 04-19-2019 Chronic Past or Other Problems Problem Classification Problem Date Documented Da te Episodic/Chronic Other gastrointestinal disorders (2 sources) Diarrhea, unspecified; Translations: [Diarrhea, unspecified] Onset: 11-30-2023 Episodic Other screening for suspected conditions (not mental disorders or infectious disease) (1 source) Encounter for screening mammogram for malignant neoplasm of breast; Translations: [Encounter for screening mammogram for malignant neoplasm of breast] Onset: 09-19-2024 Episodic Results Test Name Value Interpretation Reference Range Facility Gastroenterology Visit Repor ton 03-27-2025 Gastroenterology Visit Report [facility] [address] [place] [address] OFFICE VISIT Date of Service: 03/27/25 MR#: [id number] Acct: [id number] Name: ADORE SAAVEDRA Rep #: [id number] : 1960 Provider: Dr. Nima guzman MD Age/Sex: 64/F Location: [facility] [place] Status: Signed Intake Vital Signs 03/13/25 18:46 03/27/25 13:30 Height 5 ft 1 in 5 ft 1 in Weight: 134 lb BMI 25.3 BP 117/73 Blood Pressure Location Rt brachial Position Sitting Pulse 80 Pulse Oximetry (%) 96 Oxygen Delivery Method room air Intake Visit Reasons: hepatic cyst epigastric pain Allergies Penicillins (PCN) Allergy (Verified 03/27/25 13:24) Abd cramps/diarrhea Sulfa (Sulfonamide Antibiotics) Allergy (Verified 03/27/25 13:24) Hives Medications ???Medication ???Instructions ???Recorded ???Confirmed ???Type Buspirone Hcl 7.5 mg PO BID 08/29/15 03/23/25 Hi story citalopram 20 mg tablet 20 mg PO DAILY 08/29/15 03/23/25 H istory atorvastatin 20 mg tablet 20 mg PO DAILY 03/13/25 03/27/25 H istory lisinopril 2.5 mg tablet 2.5 mg PO DAILY 03/13/25 03/23/25 History metformin 500 mg tablet,extended 2,000 mg PO DAILY 03/13/25 5 History release 24 hr ondansetron 4 mg disintegrating 4 mg PO Q8H PRN PRN Nausea #10 tab s 03/13/25 03/23/25 Rx tablet zolpidem 10 mg tablet 10 mg PO QHS PRN PRN insomnia 02/1703/23/25 History baclofen 5 mg tablet 5 mg PO TID 03/23/25 03/23/25 Hist ory pantoprazole 40 mg tablet,delayed 40 mg PO BID 1 month #60 tabs 07/1303/27/25 Rx release sucralfate 1 gram tablet (Carafate) 1 g PO .TIDAC 1 month #90 tabs 03/27/25 03/27/25 Rx Have you fallen in the past year?: No PFSH Medical History Acute back pain Myalgia Lipoma Left knee pain Irritable bowel syndrome with diarrhea Hypercholesteremia Genital herpes in women Fatigue Eczema of lower leg Depression with anxiety DDD (degenerative disc disease), lumbar Burning mouth syndrome Bunion, left Osteoarthritis of both thumbs Ganglion cyst Insomnia Diabetes mellitus Surgical History H/O tubal ligation H/O section Family History Mother Diabetes Heart disease Chronic mental illness Father Hypertension Lung cancer Sister TIA (transient ischemic attack) Social History Smoking Status: Never smoker alcohol intake: current HPI HPI Details: ADORE SAAVEDRA, is a 64 F who presents to the office today for initial consult. PCP referred for hepatic cyst and epigastric pain. Pt seen at [facility] ER 03/13 for upper abdominal pain. US of gallbladder showed a cyst with septation in the right lobe of the liver measuring 61 x 68 x 76 mm. Pt states for the last few months has had postprandial abdominal pain. Is relieved by OTC Tums and Zofran. Does okay if she follows a BRAT diet. BMs are normal once daily. Abdominal pain: Complain of mild to moderate, 5/10 intensity intermittent mainly after meet for last 2 to 3 months. It is usually upper abdominal right TO left quadrant. Currently she is eating banana and toast and has lost about 8 pounds in 2 to 3 months. She went to ED on 03/13/26 when she felt nauseous otherwise no significant associated symptoms. No fever. No vomiting. No GI bleed. Family history: Her maternal aunt had liver cancer unclear whether primary or secondary. Her mother has breast cancer. Denies personal or family history of autoimmune disease related to liver pancreas, thyroid, adrenal or pituitary, UC, CAD or celiac disease. ROS Const Constitutional: No fatigue, fever(s), weakness or weight change ENT ENT: No difficulty swallowing Resp Respiratory: No shortness of breath or wheezing Cardio Cardiology: No chest pain at rest or dyspnea on exertion Gastro GI: Positive for abdominal pain and bloating; No belching, change in bowel habits, change in stool character, coffee ground emesis, constipation, cramping, diarrhea, heartburn, difficulty swallowing, feeling full early, excessive flatus, incontinent of stools, Vomiting blood/hematemesis, Blood in stool, loose stools, Black,tarry stools, nausea/dyspepsia, pain with swallowing, vomiting or other Genitourinary-Female: No difficulty urinating or burning urination Musc Musculoskeletal: No joint pain Skin Skin: No yellowing of the eye or itchy eyes Neuro Neurology: No abnormal movements, behavioral changes, weakness or lack of coordination Psych Psychiatric: No anxiety, No behavioral changes and No depression Endo Endocrine: No fatigue or weight change Aller/Imm Allergy/Immunologic: No itchy eyes or wheezi (more content not included)... Normal [facility] Absolute lymphocyte countOrd ered By: Atilio Sandoval on 03-13-2025 Lymphocytes Auto (Unsp spec) [#/Vol] 0.69 10*3/uL Low 0.83-4.51 [facility] Absolute neutrophil countOrd ered By: Atilio Sandoval on 03-13-2025 Neutrophils (Bld) [#/Vol] 8.2 10*3/uL High 2.0-7.7 [facility] Anion gap in Serum or Plasma Ordered By: Atilio Sandoval on 03-13-2025 Anion gap [Moles/Vol] 13 mmol/L 5-15 [facility] Automated lymphocyte count a s percentage of total leukocytesOrdered By: Atilio Sandoval on 03-13-2025 Lymphocytes/100 WBC Auto (Unsp spec) 7.1 % Low 19-41 [facility] BUN/creatinine ratioOrdered By: Atilio Sandoval on 03-13-2025 Urea nitrogen/Creatinine [Mass ratio] 19.1 mg/mg 10- [facility] Basic Metabolic Profile (BMP )on 03-13-2025 BUN/CRE 19.1 RATIO Normal 10-20 [facility] Comment on above: Performed By: #### L [id number], L100.0100, L500.3400, L500.2500 #### [facility] [address] [place], [address] Calcium [Mass/Vol] 9.3 mg/dL Normal 7.6-11.0 [facility] Comment on above: Performed By: #### L [id number], L100.0100, L500.3400, L500.2500 #### [facility] [address] [place], [address] Chloride [Moles/Vol] 104 mmol/L Normal 98-108 [facility] Comment on above: Performed By: #### L [id number], L100.0100, L500.3400, L500.2500 #### [facility] [address] [place], [address] CO2 [Moles/Vol] 22.2 mmol/L Normal 21.0-32.0 [facility] Comment on above: Performed By: #### L [id number], L100.0100, L500.3400, L500.2500 #### [facility] [address] [place], [address] Creatinine [Mass/Vol] 0.88 mg/dL Normal 0.70-1.20 [facility] Comment on above: Performed By: #### L [id number], L100.0100, L500.3400, L500.2500 #### [facility] [address] [place], [address] ECRCL 53.81 ml/min Normal 50-250 [facility] Comment on above: Performed By: #### L [id number], L100.0100, L500.3400, L500.2500 #### [facility] [address] [place], [address] GAP 13 Normal 5-15 [facility] Comment on above: Performed By: #### L [id number], L100.0100, L500.3400, L500.2500 #### [facility] [address] [place], [address] GFR/1.73 sq M.predicted among non-blacks MDRD (S/P/Bld) [Vol rate/Area] 73 mL/min/{1.73_m2} Normal >60 [facility] Comment on above: Result Comment: mL/m in/1.73m2 CKD-EPI Creatinine Equation (2020) Performed By: #### L 501.2450, L100.0100, L500.3400, L500.2500 #### [facility] [address] [place], [address] Glucose [Mass/Vol] 144 mg/dL High 70-99 [facility] Comment on above: Performed By: #### L [id number], L100.0100, L500.3400, L500.2500 #### [facility] [address] [place], [address] Potassium [Moles/Vol] 3.9 mmol/L Normal 3.3-5.1 [facility] Comment on above: Performed By: #### L [id number], L100.0100, L500.3400, L500.2500 #### [facility] [address] [place], [address] Sodium [Moles/Vol] 139 mmol/L Normal 133-145 [facility] Comment on above: Performed By: #### L 501.2450, L100.0100, L500.3400, L500.2500 #### [facility] [address] [place], [address] Urea nitrogen [Mass/Vol] 17 mg/dL Normal 4-19 [facility] Comment on above: Performed By: #### L 501.2450, L100.0100, L500.3400, L500.2500 #### [facility] [address] [place], [address] Basophil percentageOrdered B y: Atilio Sandoval on 03-13-2025 Basophils/100 WBC (Bld) 0.3 % 0-1 [facility] Bilirubin directOrdered By: Atilio Sandoval on 03-13-2025 Bilirubin.direct [Mass/Vol] 0.53 mg/dL High 0.00-0.30 [facility] Bilirubin, totalOrdered By: Atilio Sandoval on 03-13-2025 Bilirubin [Mass/Vol] 1.19 mg/dL 0.00-1.30 [facility] CBC W/Diff, Automatedon 02-17 Absolute Lymph 0.69 X10 3/uL Low 0.83-4.51 [facility] Comment on above: Performed By: #### L [id number], L100.0100, L500.3400, L500.2500 #### [facility] [address] [place], [address] Absolute Neut 8.2 X10 3/uL High 2.0-7.7 [facility] Comment on above: Performed By: #### L 501.2450, L100.0100, L500.3400, L500.2500 #### [facility] [address] [place], [address] Basophils/100 WBC (Bld) 0.3 % Normal 0-1 [facility] Comment on above: Performed By: #### L 501.2450, L100.0100, L500.3400, L500.2500 #### [facility] [address] [place], [address] Eosinophils/100 WBC (Bld) 3.2 % Normal 0-5 [facility] Comment on above: Performed By: #### L 501.2450, L100.0100, L500.3400, L500.2500 #### [facility] [address] [place], [address] Erythrocyte distribution width (RBC) [Ratio] 14.5 % Normal 11.6-14.6 [facility] Comment on above: Performed By: #### L 501.2450, L100.0100, L500.3400, L500.2500 #### [facility] [address] [place], [address] Hematocrit (Bld) [Volume fraction] 38.3 % Normal 37-47 [facility] Comment on above: Performed By: #### L 501.2450, L100.0100, L500.3400, L500.2500 #### [facility] [address] [address] [place], [address] Hemoglobin (Bld) [Mass/Vol] 12.6 g/dL Normal 12.0-15.0 [facility] Comment on above: Performed By: #### L 501.2450, L100.0100, L500.3400, L500.2500 #### [facility] [address], [address] IG% 0.300 Normal 0.0-0.9 [facility] Comment on above: Result Comment: IG% - Immature Granulocytes (promyelocytes, myelocytes and metamyelocytes) > 1% indicates that a LEFT SHIFT is Present. Performed By: #### L 501.2450, L100.0100, L500.3400, L500.2500 #### [facility] [address] [place], [address] Lymphocytes/100 WBC (Bld) 7.1 % Low 19-41 [facility] Comment on above: Performed By: #### L 501.2450, L100.0100, L500.3400, L500.2500 #### [facility] [address] [place], [address] MCH (RBC) [Entitic mass] 27.5 pg Normal 27.0-32.0 [facility] Comment on above: Performed By: #### L 501.2450, L100.0100, L500.3400, L500.2500 #### [facility] [address] [place], [address] MCHC (RBC) [Mass/Vol] 32.9 g/dL Normal 32-36 [facility] Comment on above: Performed By: #### L 501.2450, L100.0100, L500.3400, L500.2500 #### [facility] [address] [place], [address] MCV (RBC) [Entitic vol] 83.6 fL Normal 81-99 [facility] Comment on above: Performed By: #### L 501.2450, L100.0100, L500.3400, L500.2500 #### [facility] [address] [place], [address] Monocytes/100 WBC (Bld) 4.0 % Normal 0-10 [facility] Comment on above: Performed By: #### L 501.2450, L100.0100, L500.3400, L500.2500 #### [facility] [address] [place], [address] Neutrophils/100 WBC (Bld) 85.1 % High 47-70 [facility] Comment on above: Performed By: #### L 501.2450, L100.0100, L500.3400, L500.2500 #### [facility] [address] [place], [address] Nucleated RBC (Bld) [#/Vol] 0 10*3/uL Normal 0-5 [facility] Comment on above: Performed By: #### L 501.2450, L100.0100, L500.3400, L500.2500 #### [facility] [address] [place], [address] Platelet mean volume (Bld) [Entitic vol] 8.7 fL Normal 6.2-12.0 [facility] Comment on above: Performed By: #### L 501.2450, L100.0100, L500.3400, L500.2500 #### [facility] [address] [place], [address] Platelets (Bld) [#/Vol] 263 10*3/uL Normal 150-450 [facility] Comment on above: Performed By: #### L 501.2450, L100.0100, L500.3400, L500.2500 #### [facility] [address] [place], [address] RBC (Bld) [#/Vol] 4.58 10*6/uL Normal 4.2-5.4 [facility] Comment on above: Performed By: #### L 501.2450, L100.0100, L500.3400, L500.2500 #### [facility] [address] [place], [address] RDW SD 43.8 fl Normal 35.1-43.9 [facility] Comment on above: Performed By: #### L 501.2450, L100.0100, L500.3400, L500.2500 #### [facility] [address] [place], [address] WBC (Bld) [#/Vol] 9.7 10*3/uL Normal 4.4-11.0 [facility] Comment on above: Performed By: #### L 501.2450, L100.0100, L500.3400, L500.2500 #### [facility] [address] [place], [address] Carbon dioxide, total [Moles /volume] in Central venous bloodOrdered By: Atilio Sandoval on 03-13-2025 CO2 [Moles/Vol] 22.2 mmol/L 21.0-32.0 [facility] Chloride assayOrdered By: Ramin Sandoval on 03-13-2025 Chloride [Moles/Vol] 104 mmol/L 98-108 [facility] Emergency Department Summary on 03-13-2025 Emergency Department Summary 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 States typically 30 minutes or an hour after she eats. She switched over to a brat diet. She states this is taking the edge off of symptoms. She cannot recall any specific meal that worsening her symptoms. She ate pancakes and hashbrowns this morning around 1030. There is no cheese no butter. Pain is across her abdomen. Nausea without vomiting. No black or bloody stools. No fever or chills. She has had 2 C-sections in the past denies any other abdominal surgeries. Allergies to penicillin and sulfa. Prior similar symptoms: [facility] Medical History (Updated 03/13/25 @ 21:[address] Atilio Sandoval, DO) Diabetes mellitus Home Medications ???Medication ???Instructions ???Recorded ???Last Taken ???Type Buspirone Hcl 7.5 mg PO BID 08/29/15 Unknown His tory citalopram 20 mg tablet 20 mg PO DAILY 08/29/15 Unknown Hi story atorvastatin 20 mg tablet 20 mg PO DAILY 03/13/25 Unknown Hi story lisinopril 2.5 mg tablet 2.5 mg PO DAILY 03/13/25 Unknown H istory metformin 500 mg tablet,extended 2,000 mg PO DAILY 03/13/25 Unknown History release 24 hr ondansetron 4 mg disintegrating 4 mg PO Q8H PRN PRN Nausea #10 tab s 03/13/25 Unknown Rx tablet pantoprazole 40 mg tablet,delayed 40 mg PO DAILY #30 tabs 03/13/25 Unknown Rx release sucralfate 1 gram tablet (Carafate) 1 g PO Q6H #60 tabs 03/13/25 Un known Rx zolpidem 10 mg tablet 10 mg PO QHS PRN PRN insomnia 02/17 04/12 Unknown History Allergy/AdvReac Type Severity Reaction Status Date / Time Penicillins (PCN) Allergy Abd Verified 03/13/25 18:45 cramps/diarrhea Sulfa (Sulfonamide Allergy Hives Verified 03/13/25 18:45 Antibiotics) Social History Smoking Status: Never smoker ROS ROS ED Constitutional Constitutional ED: Denies chills, fever(s) or sweats ENT ENT ED: Denies sore throat Cardiovascular Cardiovascular: Denies chest pain, leg edema, palpitations or racing heartbeat Respiratory/Chest Respiratory/Chest: Denies cough, dyspnea or dyspnea on exertion Gastrointestinal Gastrointestinal: Reports abdominal pain and nausea; Denies diarrhea or vomiting Genitourinary Genitourinary ED: Denies dysuria, hematuria or urinary frequency Musculoskeletal Musculoskeletal: Denies back pain, extremity pain or neck pain Integumentary Denies rash or wounds Neurologic Neurologic: Denies headache(s), paresthesias or weakness EXAM Physical Exam Const Vital Signs: 03/13/25 18:46 03/13/25 20:45 03/13/25 21:27 Temperature 97.2 F L 100 F H Temperature Source Temporal Pulse Rate 86 68 70 Respiratory Rate 15 16 14 Blood Pressure 138/75 H 118/57 L 115/85 H Blood Pressure Mean 96 77 95 Pulse Ox 99 94 97 Oxygen Delivery Method Room Air Room Air Positive well nourished and well developed General Appearance ED: well developed and NAD HEENT Reports moist mucous membranes normocephalic and atraumatic Eyes General Eye ED: Yes normal appearance of both eyes Neck full ROM Chest Wall Chest: Negative for tenderness Resp normal respiratory effort and normal air movement Effort and Inspection: symmetric chest movement; Negative for respiratory distress Cardio regular rate, regular rhythm and no murmurs Peripheral Pulses: pulses 2+ throughout GI normal to inspection, nondistended, normoactive bowel sounds GI Narrative: Tenderness pain more epigastrium very minimal right upper quadrant. Negative McBurney's. There is no guarding or rebound. Palpation: Negative for guarding or rebound tenderness present Extremity normal to inspection General Extremety ED: Negative for edema or tenderness General Extremity: Negative for edema Neuro oriented x3 and no sensory deficits noted Sensorium / Orientation: awake and alert Skin no rashes or lesions noted and no wounds MDM MDM MDM Narrative Medical decision making narrative: Interventions / MDM: Differential diagnosis: Gastritis, biliary colic, liver cyst Diagnosis considered but do not suspect: Cholelithiasis, cholecystitis however ultrasound negative. Pancreatitis however lipase normal. My EKG interpretation: N/A Imaging independently reviewed and interpreted by myself: Right upper quadrant ultrasound: Reviewed by myself however interpreted by radiology (more content not included)... Normal [facility] Eosinophil percentageOrdered By: Atilio Sandoval on 03-13-2025 Eosinophils/100 WBC (Bld) 3.2 % 0-5 [facility] Erythrocyte distribution wid th ratioOrdered By: Atilio Sandoval on 03-13-2025 Erythrocyte distribution width (RBC) [Ratio] 14.5 % 11.6-14.6 [facility] Erythrocyte distribution wid th standard deviationOrdered By: Atilio Sandoval on 03-13-2025 Erythrocyte distribution width (RBC) [Ratio] 43.8 fl 35.1-43.9 [facility] Gallbladderon 03-13-2025 Gallbladder [facility] Imaging Services [address] [place], [place] [address] Gallbladder MR#: [id number] Acct: [id number] Name: ADORE SAAVEDRA Rep #: [id number] : 1960 F 64 From: Pawel Bear MD PCP: JOSE PATEL Status: REG ER Study: Gallbladder Date of Exam: 03/13/25 Exam# [id number] Ordering Dr: Atilio Sandoval DO PROCEDURE: GALLBLADDER 03/13/2025 REASON FOR EXAM: PAIN FINDINGS: Normal appearance to the liver and no evidence of intrahepatic biliary dilatation. No Hernandez's sign involving the gallbladder. No gallstones or pericholecystic fluid. Pancreas and right kidney unremarkable. No hydronephrosis. There is a cyst with septation in the right lobe of the liver measuring 61 x 68 x 76 mm US/Gallbladder IMPRESSION: Normal gallbladder. Liver cyst. Reading Location: [facility] CC: Dr. 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 Normal [facility] Glomerular filtration rate ( GFR) estimation/1.73 sq m using serum, plasma, or whole bOrdered By: Atilio Sandoval on 03-13-2025 GFR/1.73 sq M.predicted among non-blacks MDRD (S/P/Bld) [Vol rate/Area] 73 mL/min/{1.73_m2} >60 [facility] Comment on above: mL/min/1.73m2 CKD-EP I Creatinine Equation (2020) Hematocrit Auto (Bld) [Volum e fraction]Ordered By: Atilio Sandoval on 03-13-2025 Hematocrit (Bld) [Volume fraction] 38.3 % 37-47 [facility] Hemoglobin measurementOrdere d By: Atilio Sandoval on 03-13-2025 Hemoglobin (Bld) [Mass/Vol] 12.6 g/dL 12.0-15.0 [facility] Immature granulocytes/100 WB C Auto (Bld)Ordered By: Atilio Sandoval on 03-13-2025 Immature granulocytes/100 WBC (Bld) 0.300 % 0.0-0.9 [facility] Comment on above: IG% - Immature Granu locytes (promyelocytes, myelocytes and metamyelocytes) > 1% indicates that a LEFT SHIFT is Present. Laboratory - Chemistry and C hemistry - challengeOrdered By: Atilio Sandoval on 03-13-2025 AST [Catalytic activity/Vol] 18 U/L <32 [facility] Lipaseon 03-13-2025 Lipase [Catalytic activity/Vol] 37 U/L Normal 13-75 [facility] Comment on above: Result Comment: Amanda worley note: LIPASE revised reference range effective 23. New Lipase methodology. Expected to produce lower values than the previous assay method. NEW Reference Range: 13 - 75 U/L Performed By: #### L 501.2450, L100.0100, L500.3400, L500.2500 #### [facility] [address] [place], [place], [address] Lipase measurementOrdered By : Atilio Sandoval on 03-13-2025 Lipase [Catalytic activity/Vol] 37 U/L 13-75 [facility] Comment on above: Please note:LIPASE r evised reference range effective 23. New Lipase methodology. Expected to produce lower values than the previous assay method. NEW Reference Range: 13 - 75 U/L Liver Profileon 03-13-2025 Albumin [Mass/Vol] 4.4 g/dL Normal 3.4-4.8 [facility] Comment on above: Performed By: #### L 501.2450, L100.0100, L500.3400, L500.2500 #### [facility] [address] [place], [place], [address] ALK PHOS 63 U/L Normal 35-104 [facility] Comment on above: Performed By: #### L 501.2450, L100.0100, L500.3400, L500.2500 #### [facility] [address] [place], [address] ALT [Catalytic activity/Vol] 10 U/L Normal <=34 [facility] Comment on above: Performed By: #### L 501.2450, L100.0100, L500.3400, L500.2500 #### [facility] [address] [place], [address] AST [Catalytic activity/Vol] 18 U/L Normal <=31 [facility] Comment on above: Performed By: #### L 501.2450, L100.0100, L500.3400, L500.2500 #### [facility] [address] [place], [address] Bilirubin [Mass/Vol] 1.19 mg/dL Normal 0.00-1.30 [facility] Comment on above: Performed By: #### L 501.2450, L100.0100, L500.3400, L500.2500 #### [facility] [address] [place], [address] Bilirubin.direct [Mass/Vol] 0.53 mg/dL High 0.00-0.30 [facility] Comment on above: Performed By: #### L 501.2450, L100.0100, L500.3400, L500.2500 #### [facility] [address] [place], [address] Globulin (S) [Mass/Vol] 2.4 g/dL Normal 2.2-4.2 [facility] Comment on above: Performed By: #### L 501.2450, L100.0100, L500.3400, L500.2500 #### [facility] [address] [place], [address] T PROT 6.8 g/dL Normal 5.9-8.4 [facility] Comment on above: Performed By: #### L 501.2450, L100.0100, L500.3400, L500.2500 #### [facility] [address] [place], [address] MCV (mean corpuscular volume ) determinationOrdered By: Atilio Sandoval on 03-13-2025 MCV (RBC) [Entitic vol] 83.6 fL 81-99 [facility] Mean corpuscular hemoglobin (MCH) determinationOrdered By: Atilio Sandoval on 03-13-2025 MCH (RBC) [Entitic mass] 27.5 pg 27.0-32.0 [facility] Mean corpuscular hemoglobin concentration (MCHC) determinationOrdered By: Atilio Sandoval on 03-13-2025 MCHC (RBC) [Mass/Vol] 32.9 g/dL 32-36 [facility] Mean platelet volume determi nationOrdered By: Atilio Sandoval on 03-13-2025 Platelet mean volume (Bld) [Entitic vol] 8.7 fL 6.2-12.0 [facility] Monocyte percentageOrdered B y: Atilio Sandoval on 03-13-2025 Monocytes/100 WBC (Bld) 4.0 % 0-10 [facility] Neutrophil percentageOrdered By: Atilio Sandoval on 03-13-2025 Neutrophils/100 WBC (Bld) 85.1 % High 47-70 [facility] Nucleated red blood cell per centageOrdered By: Atilio Sandoval on 03-13-2025 Nucleated RBC/100 WBC (Bld) [Ratio] 0 % 0-5 [facility] Platelet countOrdered By: Ramin Sandoval on 03-13-2025 Platelets (Bld) [#/Vol] 263 10*3/uL 150-450 [facility] Potassium measurement (mass/ volume)Ordered By: Atilio Sandoval on 03-13-2025 Potassium (Unsp spec) [Mass/Vol] 3.9 mmol/L 3.3-5.1 [facility] RBC Auto (Bld) [#/Vol]Ordere d By: Atilio Sandoval on 03-13-2025 RBC (Bld) [#/Vol] 4.58 10*6/uL 4.2-5.4 [facility] Serum creatinine measurement (mass/volume)Ordered By: Atilio Sandoval on 03-13-2025 Creatinine [Mass/Vol] 0.88 mg/dL 0.70-1.20 [facility] Serum globulin measurementOr dered By: Atilio Sandoval on 03-13-2025 Globulin (S) [Mass/Vol] 2.4 g/dL 2.2-4.2 [facility] Serum glucose measurement (m ass/volume)Ordered By: Atilio Sandoval on 03-13-2025 Glucose [Mass/Vol] 144 mg/dL High 70-99 [facility] Serum or plasma alanine hernandez otransferase (ALT) measurementOrdered By: Atilio Sandoval on 03-13-2025 ALT [Catalytic activity/Vol] 10 U/L <35 [facility] Serum or plasma albumin antelmo urement (mass/volume)Ordered By: Atilio Sandoval on 03-13-2025 Albumin [Mass/Vol] 4.4 g/dL 3.4-4.8 [facility] Serum or plasma alkaline danielle sphatase measurementOrdered By: Atilio Sandoval on 03-13-2025 ALP [Catalytic activity/Vol] 63 U/L 35-104 [facility] Serum or plasma calcium antelmo urement (mass/volume)Ordered By: Atilio Sandoval on 03-13-2025 Calcium [Mass/Vol] 9.3 mg/dL 7.6-11.0 [facility] Serum or plasma urea nitroge n measurement (mass/volume)Ordered By: Atilio Sandoval on 03-13-2025 Urea nitrogen [Mass/Vol] 17 mg/dL 4-19 [facility] Sodium levelOrdered By: Atilio Sandoval on 03-13-2025 Sodium [Moles/Vol] 139 mmol/L 133-145 [facility] Total proteinOrdered By: Agus Sandoval on 03-13-2025 Protein [Mass/Vol] 6.8 g/dL 5.9-8.4 [facility] White blood cell (WBC) count Ordered By: Atilio Sandoval on 03-13-2025 WBC (Bld) [#/Vol] 9.7 10*3/uL 4.4-11.0 [facility] SCRN MAMM (CAD)W/SYLVIA BILATo n 09-19-2024 SCRN MAMM (CAD)W/SYLVIA BILAT [facility] Imaging Services [address] [place] [address] SCRN MAMM (CAD)W/SYLVIA BILAT MR#: [id number] Acct: [id number] Name: ADORE SAAVEDRA Rep #: [id number] : 1960 F 64 From: Rubén john MD PCP: Dr. Nolberto Rodgers DO Status: REG [facility] Study: SCRN MAMM (CAD)W/SYLVIA BILAT Date of Exam: 12/12 Exam# [id number] Ordering Dr: Nolberto Rodgers DO [id number] MAMMOGRAPHY - BILATERAL SCREENING REASON FOR EXAM: Female, 64 years old. Routine annual screening examination. PERTINENT HISTORY: Daughter with breast cancer. TECHNIQUE: Digital bilateral breast sylvia (3D mammographic acquisition) in the CC and MLO projections. 2-D mediolateral oblique (MLO) and craniocaudad (CC) views of both breasts were obtained. CAD: Full Field Digital Mammography with Computer Added Detection was performed. COMPARISON: Comparison is made with prior study dated August 31, 2023 and August 11, 2022. FINDINGS: Breast Composition: The breasts are extremely dense, which lowers the sensitivity of mammography. There are no dominant masses or suspicious calcifications. Stable small bilateral axillary lymph nodes. No other significant abnormalities are identified. There has been no significant change since the prior study. BI/SCRN MAMM (CAD)W/SYLVIA BILAT IMPRESSION: Stable bilateral screening mammogram. Yearly follow-up mammogram recommended. (A) ASSESSMENT CATEGORY: BIRADS Category 2: Benign. A letter regarding these results will be sent to the patient by the facility within 30 days. Approximately 10% of breast cancers are not detected by mammography. A normal mammogram should not delay biopsy of a clinically suspicious abnormality. [id number] Electronically Signed: Rubén Bejarano MD at 14:09 EST , CC: Dr. 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 Pathology Reports Accession: Collected Date/Time: Received Date/Time: Pathologist: [id number] 04/28/2024 10:45 EDT 04/29/2024 09:08 EDT SILVANO DOUGLAS MD Final Surgical Pathology Report DIAGNOSIS: SOFT TISSUE, LEFT POSTERIOR AXILLA, EXCISION: - MATURE ADIPOSE TISSUE, CONSISTENT WITH LIPOMA CLINICAL INFORMATION: Procedure: EXCISION LIPOMA, LEFT AXILLA Preoperative diagnosis: LIPOMA, LEFT AXILLARY Postoperative diagnosis: LIPOMA, LEFT AXILLARY SPECIMEN: A 4X 3X 2 LEFT POSTERIOR AXILLA LIPOMA GROSS DESCRIPTION: All parts labelled with patient name and [id number] Received in formalin labelled left posterior axilla lipoma Is a yellow smooth portion of adipose tissue measuring 4.5 x 4.5 x 2 cm. The tissue is serially sectioned to reveal yellow, glistening, homogeneous cut surfaces with no areas of hemorrhage or necrosis identified. RS-1 Nolberto Kirkland, [facility] (ASCP) Performed by NOLBERTO KIRKLAND MICROSCOPIC DESCRIPTION: The microscopic examination is performed, except in the case of Gross Only. Electronically Signed by Pathology Report verified by [facility] SILVANO DOUGLAS Sign out Date: 05/02/2024 10:37 Performing Lab: [facility], [address] [place] [address] Pathology Dept Disclaimer If ancillary studies were utilized, the following Laboratory Developed Test (LDT) disclaimer will apply: Under CLIA requirements, [facility] is qualified to perform high complexity testing. For all ancillary stains, positive and negative controls stain appropriately. Performance characteristics of immunohistochemical and chromogenic in-situ hybridization tests have been determined by [facility]. These tests are used for clinical purposes, They should not be regarded as investigational or for research. Normal [facility] ([place]) LABORATORYOrdered By: Maggy Messer on 04-28-2024 Glucose [Mass/Vol] 81 mg/dL Low 82 - 115 mg/dL [facility] LABORATORYOrdered By: Maddi Arboleda on 04-28-2024 Glucose [Mass/Vol] 127 mg/dL High 82 - 115 mg/dL [facility] .Auto Diffon 04-25-2024 Basophil, Absolute 0.1 10 3/mcL Normal 0.0-0.2 [facility] ([place] Comment on above: Performed By: #### B MP, CBC, ANEU, GFR, ADIFF #### [address] [address] Basophils/100 WBC (Bld) 0.8 % Normal 0.0-2.5 A [facility] ([place] Comment on above: Performed By: #### B MP, CBC, ANEU, GFR, ADIFF #### [address] [address] Eosinophil, Absolute 0.6 10 3/mcL High 0.0-0.4 [facility] ([place]) Comment on above: Performed By: #### B MP, CBC, ANEU, GFR, ADIFF #### [address] [address] Eosinophils/100 WBC (Bld) 7.3 % High 0.0-7.0 [facility] ([place]) Comment on above: Performed By: #### B MP, CBC, ANEU, GFR, ADIFF #### [address] [address] Lymphocyte, Absolute 1.9 10 3/mcL Normal 0.8-3.9 [facility] ([place]) Comment on above: Performed By: #### B MP, CBC, ANEU, GFR, ADIFF #### [address] [address] Lymphocytes/100 WBC (Bld) 21.8 % Normal 10.0-50.0 [facility] ([place]) Comment on above: Performed By: #### B MP, CBC, ANEU, GFR, ADIFF #### [address] [address] Monocyte, Absolute 0.4 10 3/mcL Normal 0.2-1.0 [facility] ([place]) Comment on above: Performed By: #### B MP, CBC, ANEU, GFR, ADIFF #### [address] [address] Monocytes/100 WBC (Bld) 4.6 % Normal 1.7-13.0 [facility] ([place]) Comment on above: Performed By: #### B MP, CBC, ANEU, GFR, ADIFF #### [address] [address] Neutrophils/100 WBC (Bld) 65.5 % Normal 37.0-80.0 [facility] ([place]) Comment on above: Performed By: #### B MP, CBC, ANEU, GFR, ADIFF #### [address] [address] .GFRon 04-25-2024 GFR Non- 58 ml/min/1.73sqm Normal [facility] ([place]) Comment on above: Result Comment: GFR Population mean for , Non- Americans Ages 20-29 = 116 mL/min/1.73 sq.m. Ages 30-39 = 107 mL/min/1.73 sq.m. Ages 40-49 = 99 mL/min/1.73 sq.m. Ages 50-59 = 93 mL/min/1.73 sq.m. Ages 60-69 = 85 mL/min/1.73 sq.m. Ages 70+ = 75 mL/min/1.73 sq.m. Chronic Kidney Disease: Less than 60 mL/min/1.73 square meters End Stage Renal Disease: Less than 15 mL/min/1.73 square meters Performed By: #### B MP, CBC, ANEU, GFR, ADIFF ####[address] [place], [place] [address] GFR 70 ml/min/1.73sqm Normal [facility] ([place]) Comment on above: Result Comment: GFR Population mean for , Non- Americans Ages 20-29 = 116 mL/min/1.73 sq.m. Ages 30-39 = 107 mL/min/1.73 sq.m. Ages 40-49 = 99 mL/min/1.73 sq.m. Ages 50-59 = 93 mL/min/1.73 sq.m. Ages 60-69 = 85 mL/min/1.73 sq.m. Ages 70+ = 75 mL/min/1.73 sq.m. Chronic Kidney Disease: Less than 60 mL/min/1.73 square meters End Stage Renal Disease: Less than 15 mL/min/1.73 square meters Performed By: #### B MP, CBC, ANEU, GFR, ADIFF ####[address] [place], [place] [address] .NEUABSon 04-25-2024 Neutrophil, Absolute 5.6 10 3/mcL Normal 2.9-6.2 [facility] ([place] Comment on above: Performed By: #### B MP, CBC, ANEU, GFR, ADIFF ####[address] [place], [place] [address] BMPon 04-25-2024 BUN/Creatinine Ratio 16 ratio Normal 7-27 [facility] ([place] Comment on above: Performed By: #### B MP, CBC, ANEU, GFR, ADIFF ####[address] [place], [place] [address] Calcium [Mass/Vol] 8.9 mg/dL Normal 8.4-10.2 [facility] ([place]) Comment on above: Performed By: #### B MP, CBC, ANEU, GFR, ADIFF ####[address] [place], [place] [address] Chloride [Moles/Vol] 105 mmol/L Normal 98-107 [facility] ([place] Comment on above: Performed By: #### B MP, CBC, ANEU, GFR, ADIFF ####[address] [place], [place] [address] CO2 [Moles/Vol] 25 mmol/L Normal 23-31 [facility] ([place] Comment on above: Performed By: #### B MP, CBC, ANEU, GFR, ADIFF ####[address] [place], [place] [address] Creatinine [Mass/Vol] 0.97 mg/dL Normal 0.55-1.02 [facility] ([place]) Comment on above: Performed By: #### B MP, CBC, ANEU, GFR, ADIFF ####[address] [place], [place] [address] Electrolyte Balance 11.0 mEq/L Normal 4.0-15.0 [facility] ([place] Comment on above: Performed By: #### B MP, CBC, ANEU, GFR, ADIFF ####[address] [place], [place] [address] Glucose [Mass/Vol] 122 mg/dL High 80-115 [facility] ([place] Comment on above: Performed By: #### B MP, CBC, ANEU, GFR, ADIFF ####[address] [place], [place] [address] Potassium [Moles/Vol] 4.1 mmol/L Normal 3.5-5.1 [facility] ([place] Comment on above: Performed By: #### B MP, CBC, ANEU, GFR, ADIFF ####[address] [place], [place] [address] Sodium [Moles/Vol] 141 mmol/L Normal 136-145 [facility] ([place] Comment on above: Performed By: #### B MP, CBC, ANEU, GFR, ADIFF ####[address] [place], [place] [address] Urea nitrogen [Mass/Vol] 16 mg/dL Normal 7-18 [facility] ([place] Comment on above: Performed By: #### B MP, CBC, ANEU, GFR, ADIFF ####[address] [address] CBCon 04-25-2024 Erythrocyte distribution width (RBC) [Ratio] 14.9 % High 11.5-14.5 [facility] ([place] Comment on above: Order Comment: Pre-A dmission Testing Performed By: #### B MP, CBC, ANEU, GFR, ADIFF #### [address] [address] Hematocrit (Bld) [Volume fraction] 37.9 % Normal 37.0-47.0 [facility] ([place] Comment on above: Order Comment: Pre-A dmission Testing Performed By: #### B MP, CBC, ANEU, GFR, ADIFF #### [address] [address] Hgb 12.5 G/dL Normal 12.0-16.0 [facility] ([place] Comment on above: Order Comment: Pre-A dmission Testing Performed By: #### B MP, CBC, ANEU, GFR, ADIFF #### [address] [address] MCH (RBC) [Entitic mass] 27.8 pg Normal 27.0-31.2 [facility] ([place] Comment on above: Order Comment: Pre-A dmission Testing Performed By: #### B MP, CBC, ANEU, GFR, ADIFF #### [address] [address] MCHC 33.0 G/dL Normal 33.0-37.0 [facility] ([place] Comment on above: Order Comment: Pre-A dmission Testing Performed By: #### B MP, CBC, ANEU, GFR, ADIFF #### [address] [address] MCV (RBC) [Entitic vol] 84.3 fL Normal 80.0-94.0 A [facility] ([place]) Comment on above: Order Comment: Pre-A dmission Testing Performed By: #### B MP, CBC, ANEU, GFR, ADIFF #### [address] [address] Platelet 261 10 3/mcL Normal 130-400 [facility] ([place] Comment on above: Order Comment: Pre-A dmission Testing Performed By: #### B MP, CBC, ANEU, GFR, ADIFF #### [address] [address] Platelet mean volume (Bld) [Entitic vol] 8.1 fL Normal 7.4-10.4 [facility] ([place] Comment on above: Order Comment: Pre-A dmission Testing Performed By: #### B MP, CBC, ANEU, GFR, ADIFF #### [address] RBC 4.50 10 6/mcL Normal 4.20-5.40 [facility] ([place]) Comment on above: Order Comment: Pre-A dmission Testing Performed By: #### B MP, CBC, ANEU, GFR, ADIFF #### [address] [address] WBC 8.5 10 3/mcL Normal 4.6-10.8 [facility] ([place] Comment on above: Order Comment: Pre-A dmission Testing Performed By: #### B MP, CBC, ANEU, GFR, ADIFF #### [address] [address] LABORATORYOrdered By: SYSTEM SYSTEM on 04-25-2024 Basophil, Absolute 0.1 103/mcL Normal 0.0 - 0.2 10^3/mcL AO Workflow SS Basophils/100 WBC (Bld) 0.8 % Normal 0.0 - 2.5 % AO Workflow SS Calcium [Mass/Vol] 8.9 mg/dL Normal 8.4 - 10. 2 mg/dL AO ADM SS Chloride [Moles/Vol] 105 mmol/L Normal 98 - 10 7 mmol/L AO ADM SS CO2 [Moles/Vol] 25 mmol/L Normal 23 - 31 mmol/L AO ADM SS Creatinine [Mass/Vol] 0.97 mg/dL Normal 0.55 - 1.02 mg/dL AO ADM SS Electrolyte Balance 11.0 mEq/L Normal 4.0 - 15 .0 mEq/L AO ADM SS Eosinophil, Absolute 0.6 103/mcL High 0.0 - 0 .4 10^3/mcL AO Workflow SS Eosinophils/100 WBC (Bld) 7.3 % High 0.0 - 7.0 % AO Workflow SS Erythrocyte distribution width (RBC) [Ratio] 14.9 % High 11.5 - 14.5 % AO Workflow SS GFR/1.73 sq M.predicted among blacks MDRD (S/P/Bld) [Vol rate/Area] 70 ml/min/1.73sqm Invalid Interpretation Code AO Chemistry S Comment on above: Interpretive Data: GFR Population mean for , Non- Americans Ages 20-29 = 116 mL/min/1.73 sq.m. Ages 30-39 = 107 mL/min/1.73 sq.m. Ages 40-49 = 99 mL/min/1.73 sq.m. Ages 50-59 = 93 mL/min/1.73 sq.m. Ages 60-69 = 85 mL/min/1.73 sq.m. Ages 70+ = 75 mL/min/1.73 sq.m. Chronic Kidney Disease: Less than 60 mL/min/1.73 square meters End Stage Renal Disease: Less than 15 mL/min/1.73 square meters GFR/1.73 sq M.predicted among non-blacks MDRD (S/P/Bld) [Vol rate/Area] 58 ml/min/1.73sqm Invalid Interpretation Code AO Chemistry S Comment on above: Interpretive Data: GFR Population mean for , Non- Americans Ages 20-29 = 116 mL/min/1.73 sq.m. Ages 30-39 = 107 mL/min/1.73 sq.m. Ages 40-49 = 99 mL/min/1.73 sq.m. Ages 50-59 = 93 mL/min/1.73 sq.m. Ages 60-69 = 85 mL/min/1.73 sq.m. Ages 70+ = 75 mL/min/1.73 sq.m. Chronic Kidney Disease: Less than 60 mL/min/1.73 square meters End Stage Renal Disease: Less than 15 mL/min/1.73 square meters Glucose [Mass/Vol] 122 mg/dL High 80 - 115 mg/dL AO ADM SS Hematocrit (Bld) [Volume fraction] 37.9 % Normal 37.0 - 47.0 % AO Workflow SS Hemoglobin (Bld) [Mass/Vol] 12.5 G/dL Normal 12.0 - 16.0 G/dL AO Workflow SS Lymphocyte, Absolute 1.9 103/mcL Normal 0.8 - 3 .9 10^3/mcL AO Workflow SS Lymphocytes/100 WBC (Bld) 21.8 % Normal 10.0 - 50.0 % AO Workflow SS MCH (RBC) [Entitic mass] 27.8 pg Normal 27.0 - 31.2 pg AO Workflow SS MCHC 33.0 G/dL Normal 33.0 - 37.0 G/dL AO Workflow SS MCV (RBC) [Entitic vol] 84.3 fL Normal 80.0 - 94.0 fL AO Workflow SS Monocyte, Absolute 0.4 103/mcL Normal 0.2 - 1.0 10^3/mcL AO Workflow SS Monocytes/100 WBC (Bld) 4.6 % Normal 1.7 - 13.0 % AO Workflow SS Neutrophil, Absolute 5.6 103/mcL Normal 2.9 - 6 .2 10^3/mcL AO Workflow SS Neutrophils/100 WBC (Bld) 65.5 % Normal 37.0 - 80.0 % AO Workflow SS Platelet mean volume (Bld) [Entitic vol] 8.1 fL Normal 7.4 - 10.4 fL AO Workflow SS Platelets (Bld) [#/Vol] 261 103/mcL Normal 130 - 400 10^3/mcL AO Workflow SS Potassium [Moles/Vol] 4.1 mmol/L Normal 3.5 - 5.1 mmol/L AO ADM SS RBC (Bld) [#/Vol] 4.50 106/mcL Normal 4.20 - 5.4 0 10^6/mcL AO Workflow SS Sodium [Moles/Vol] 141 mmol/L Normal 136 - 145 mmol/L AO ADM SS Urea nitrogen [Mass/Vol] 16 mg/dL Normal 7 - 18 mg/dL AO ADM SS Urea nitrogen/Creatinine [Mass ratio] 16 ratio Normal 7 - 27 ratio AO ADM SS WBC (Bld) [#/Vol] 8.5 103/mcL Normal 4.6 - 10.8 10^3/mcL AO Workflow SS US SOFT TISSUE MASS CHEST WA LL/UPPER BACKon 04-05-2024 US SOFT TISSUE MASS CHEST WALL/UPPER BACK ORIGINAL EXAMINATION: SOFT TISSUE ULTRASOUND 04/05/2024 1:28 pm COMPARISON: None. HISTORY: ORDERING SYSTEM PROVIDED HISTORY: Reason for Exam: Mildly tender soft tissue mass, left posterior axillary region FINDINGS: Targeted sonographic interrogation at the site of clinical concern of the left upper back was performed. At the site of palpable abnormality, there is a 3.7 x 2.1 x 5.3 cm lesion which is isoechoic to subcutaneous fat. Minimal peripheral blood flow. IMPRESSION: A 5.3 cm lesion at the site of clinical concern may represent a lipoma. Clinical follow-up is recommended. If the mass is enlarging or demonstrates concerning features, consider CT or tissue diagnosis to evaluate for other etiologies such as liposarcoma. Interpreted by: Cora Barrera MD Preliminary Report By: Cora Barrera MD Electronically signed By Cora Barrera MD Dictated Date: 04/05/2024 2:19:49 PM Prelim Date: 04/05/2024 2:22:25 PM Sign Date: 04/05/2024 2:22:25 PM Ordering Provider: NOLBERTO RODGERS [facility] ([place]) Basophil percentageOrdered B y: Nolberto Rodgers on 12-14-2023 Bilirubin [Mass/Vol] 0.70 mg/dL 0.20-1.00 [facility] Comment on above: For patients on eltr ombopag therapy, use of Dimension [place] TBIL is not recommended. Chloride [Moles/Vol] 110 mmol/L 98-107 [facility] Cholesterol [Mass/Vol] 100 mg/dL <200 [facility] Comment on above: <200 mg/dL Desirable 200-240 mg/dL Borderline >240 mg/dL High Risk Glucose [Mass/Vol] 99 mg/dL 74-106 [facility] Potassium [Moles/Vol] 4.0 mmol/L 3.5-5.1 [facility] Protein [Mass/Vol] 7.2 g/dL 6.4-8.2 [facility] Sodium [Moles/Vol] 141 mmol/L 136-145 [facility] Triglyceride [Mass/Vol] 56 mg/dL <199 [facility] Comment on above: The drugs N-Acetylcy steine and Metamizole may falsely depress this assay.Serum Triglycerides Reference Interval Normal <150 mg/dL Borderline high 150 - 199 mg/dL High 200 - 499 mg/dL Very High > or = 500 mg/dL Laboratory - Chemistry and C hemistry - challengeOrdered By: Nolberto Rodgers on 12-14-2023 Albumin/Globulin [Mass ratio] 1.3 {ratio} 0.9-2.4 [facility] ALP [Catalytic activity/Vol] 67 U/L 45-117 [facility] ALT [Catalytic activity/Vol] 29 U/L 13-56 [facility] Cholesterol in HDL [Mass/Vol] 33 mg/dL >40 [facility] Comment on above: The drugs N-Acetylcy steine and Metamizole may falsely depress this assay. Reference Range HDL <40 mg/dL Low HDL Cholesterol HDL >or= 60 mg/dL High HDL Cholesterol Cholesterol in LDL [Mass/Vol] 56 mg/dL 0-130 [facility] CO2 [Moles/Vol] 27.0 mmol/L 21.0-32.0 [facility] Globulin (S) [Mass/Vol] 3.1 g/dL 2.2-4.2 [facility] Urea nitrogen/Creatinine [Mass ratio] 18.9 mg/mg 10-20 [facility] No Panel InformationOrdered By: Nolberto Rodgers on 12-14-2023 Estimated GFR (MDRD) Amer 101 mL/min >60 [facility] Comment on above: GFR Calc Estimated GFR (MDRD) Non-Af Amer 84 mL/min >60 [facility] Comment on above: Non- GFR Calc Urine Microalbumin/Creatinine Ratio 10.4 mg/g CRE <30 [facility] VLDL Cholesterol 11 mg/dL 5-40 [facility] Serum or plasma calcium antelmo urement (mass/volume)Ordered By: Nolberto Rodgers on 12-14-2023 Calcium [Mass/Vol] 9.1 mg/dL 8.5-10.1 [facility] Serum or plasma creatinine m easurement (mass/volume)Ordered By: Nolberto Rodgers on 12-14-2023 Creatinine [Mass/Vol] 0.74 mg/dL 0.55-1.02 [facility] Comment on above: The validity of the calculated GFR & GFRAA in patients over 70 years has not been determined. Clinical correlation is essential. Serum or plasma urea nitroge n measurement (mass/volume)Ordered By: Nolberto Rodgers on 12-14-2023 Urea nitrogen [Mass/Vol] 14 mg/dL 7-18 [facility] Thin prep Papanicolaou smear with manual screeningOrdered By: Nolberto Rodgers on 12-14-2023 Thin prep Papanicolaou smear with manual screening 4.1 g/dL 3.2-5.0 [facility] Thin prep Papanicolaou smear with manual screening 24 U/L 15-37 [facility] Thin prep Papanicolaou smear with manual screening 4 5-15 [facility] Thin prep Papanicolaou smear with manual screening 7.5 mg/L NO RANGE EST. [facility] Urine creatinine measurement (mass/volume)Ordered By: Nolberto Rodgers on 12-14-2023 Creatinine (U) [Mass/Vol] 72.00 mg/dL NO RANGE EST. [facility] Whole blood hemoglobin A1c/t otal hemoglobin ratio (mass fraction)Ordered By: Nolberto Rodgers on 12-14-2023 HbA1c (Bld) [Mass fraction] 6.9 % 3.8-5.6 [facility] Comment on above: Normal < 5.7 % Predi abetic 5.7 - 6.4 % Diabetic >or= 6.5 % Please note range changes. LABORATORYOrdered By: Nancy Jackson on 11-30-2023 Adenovirus 40+41 DNA FLAQUITA+non-probe Ql (Stl) Not Detected *NA* (11/30/23 1:09 PM) Invalid Interpretation Code Auto Microbiology GL SS Astrovirus subtypes 1-8 RNA FLAQUITA+non-probe Ql (Stl) Not Detected *NA* (11/30/23 1:09 PM) Invalid Interpretation Code Auto Microbiology GL SS C. cayetanensis DNA FLAQUITA+non-probe Ql (Stl) Not Detected *NA* (11/30/23 1:09 PM) Invalid Interpretation Code Auto Microbiology GL SS C. coli+jejuni+upsaliensis DNA FLAQUITA+non-probe Ql (Stl) Not Detected *NA* (11/30/23 1:09 PM) Invalid Interpretation Code Auto Microbiology GL SS Cryptosporidium sp DNA FLAQUITA+non-probe Ql (Stl) Not Detected *NA* (11/30/23 1:09 PM) Invalid Interpretation Code Auto Microbiology GL SS E. coli enteroaggregative Yosvany plasmid aggR+aatA genes FLAQUITA+non-probe Ql (Stl) Not Detected *NA* (11/30/23 1:09 PM) Invalid Interpretation Code [facility] Microbiology GL SS E. coli enteropathogenic eae gene FLAQUITA+non-probe Ql (Stl) Not Detected *NA* (11/30/23 1:09 PM) Invalid Interpretation Code Auto Microbiology GL SS E. coli enterotoxigenic ltA+st1a+st1b genes FLAQUITA+non-probe Ql (Stl) Not Detected *NA* (11/30/23 1:09 PM) Invalid Interpretation Code Auto Microbiology GL SS E. coli O157 DNA FLAQUITA+non-probe Ql (Stl) Not Applicable (11/30/23 1:09 PM) Normal [facility] Microbiology GL SS E. coli stx1+stx2 genes FLAQUITA+non-probe Ql (Stl) Not Detected *NA* (11/30/23 1:09 PM) Invalid Interpretation Code [facility] Microbiology GL SS E. histolytica DNA FLAQUITA+non-probe Ql (Stl) Not Detected *NA* (11/30/23 1:09 PM) Invalid Interpretation Code [facility] Microbiology GL SS G. lamblia DNA FLAQUITA+non-probe Ql (Stl) Not Detected *NA* (11/30/23 1:09 PM) Invalid Interpretation Code [facility] Microbiology GL SS Norovirus genogroup I+II RNA FLAQUITA+non-probe Ql (Stl) Not Detected *NA* (11/30/23 1:09 PM) Invalid Interpretation Code Auto Microbiology GL SS Plesiomonas shigelloides Not Detected *NA* (11/30/23 1:09 PM) Invalid Interpretation Code Auto Microbiology GL SS Rotavirus A RNA FLAQUITA+non-probe Ql (Stl) Not Detected *NA* (11/30/23 1:09 PM) Invalid Interpretation Code Auto Microbiology GL SS S. enterica+bongori DNA FLAQUITA+non-probe Ql (Stl) Not Detected *NA* (11/30/23 1:09 PM) Invalid Interpretation Code Auto Microbiology GL SS Sapovirus genogroups I+II+IV+V RNA FLAQUITA+non-probe Ql (Stl) Not Detected *NA* (11/30/23 1:09 PM) Invalid Interpretation Code Auto Microbiology GL SS Shigella species+EIEC invasion plasmid antigen H ipaH gene FLAQUITA+non-probe Ql (Stl) Not Detected *NA* (11/30/23 1:09 PM) Invalid Interpretation Code Auto Microbiology GL SS Stool GI Comment See Comment 1 (11/30/23 1:09 PM) Normal Auto Microbiology GL SS Comment on above: Interpretive Data: V irus, bacteria, and parasite nucleic acid may persist in vivo independently of organism viability. Negative Film Array GI panel results in the setting of clinical illness compatible with gastroenteritis may be due to infection by pathogens that are not detected by this test. False negatives may occur due to genetic variability in the region targeted by the primers. V. cholerae DNA FLAQUITA+non-probe Ql (Stl) Not Detected *NA* (11/30/23 1:09 PM) Invalid Interpretation Code Auto Microbiology GL SS V. cholerae+parahaemolytic us+vulnificus DNA FLAQUITA+non-probe Ql (Stl) Not Detected *NA* (11/30/23 1:09 PM) Invalid Interpretation Code Auto Microbiology GL SS Y. enterocolitica DNA FLAQUITA+non-probe Ql (Stl) Not Detected *NA* (11/30/23 1:09 PM) Invalid Interpretation Code Auto Microbiology GL SS STGIPCRon 11-30-2023 Adenovirus F 40/41 Not detected Normal Not Detected [facility] ([place] Comment on above: Performed By: #### S TGIPCR ####[address] [address] Astrovirus Not detected Normal Not Detected [facility] ([place]) Comment on above: Performed By: #### S TGIPCR ####[place] [id number] [place] [id number] Campy (jejuni/coli/ups) Not detected Normal Not Detected [facility] ([place]) Comment on above: Performed By: #### S TGIPCR ####[place] [id number] [place] [address] Cryptosporidium Not detected Normal Not Detected [facility] ([place] Comment on above: Performed By: #### S TGIPCR ####[place] [address] Cyclospora Not detected Normal Not Detected [facility] ([place] Comment on above: Performed By: #### S TGIPCR ####[place] [address] E. coli (ETEC) Not detected Normal Not Detected [facility] ([place] Comment on above: Performed By: #### S TGIPCR ####[place] [address] E. coli O157 Not Applicable Normal Not Detected [facility] ([place]) Comment on above: Performed By: #### S TGIPCR ####[place] [address] Entamoeba histolytica Not detected Normal Not Detected [facility] ([place] Comment on above: Performed By: #### S TGIPCR ####[place] [address] Enteroaggregative E. coli (EAEC) Not detected Normal Not Detected [facility] ([place] Comment on above: Performed By: #### S TGIPCR ####[place] [address] Enteropathogenic E. coli (EPEC) Not detected Normal Not Detected [facility] ([place] Comment on above: Performed By: #### S TGIPCR ####[place] [address] Giardia lamblia Not detected Normal Not Detected [facility] ([place] Comment on above: Performed By: #### S TGIPCR ####[place] [address] Norovirus GI/GII Not detected Normal Not Detected [facility] ([place] Comment on above: Performed By: #### S TGIPCR ####[place] [address] Plesiomonas shigelloides Not detected Normal Not Detected [facility] ([place] Comment on above: Performed By: #### S TGIPCR ####[place] [address] Rotavirus A Not detected Normal Not Detected [facility] ([place] Comment on above: Performed By: #### S TGIPCR ####[place] [address] Salmonella species, stool Not detected Normal Not Detected [facility] ([place]) Comment on above: Performed By: #### S TGIPCR ####[place] [address] Sapovirus I,II,IV,V Not detected Normal Not Detected [facility] ([place] Comment on above: Performed By: #### S TGIPCR ####[place] [address] Shig Tox E. coli (STEC) Not detected Normal Not Detected [facility] ([place] Comment on above: Performed By: #### S TGIPCR ####[place] [address] Shigella/Enteroinvasive E. coli (EIEC) Not detected Normal Not Detected [facility] ([place] Comment on above: Performed By: #### S TGIPCR ####[place] [address] Stool GI Comment See Comment Normal [facility] ([place] Comment on above: Result Comment: Viru s, bacteria, and parasite nucleic acid may persist in vivo independently of organism viability. Negative Film Array GI panel results in the setting of clinical illness compatible with gastroenteritis may be due to infection by pathogens that are not detected by this test. False negatives may occur due to genetic variability in the region targeted by the primers. Performed By: #### S TGIPCR ####[place] [address] Vibrio cholerae Not detected Normal Not Detected [facility] ([place] Comment on above: Performed By: #### S TGIPCR ####[place] [address] Vibrio par/vul/chol Not detected Normal Not Detected [facility] ([place] Comment on above: Performed By: #### S TGIPCR ####[place] [address] Yersinia enterocolitica Not detected Normal Not Detected [facility] ([place] Comment on above: Performed By: #### S TGIPCR ####[place] [address] .Auto Diffon 11-10-2023 Basophil, Absolute 0.1 10 3/mcL Normal 0.0-0.2 [facility] ([place] Comment on above: Performed By: #### A BENEDICTO, GFR, ADIFF, TSH, CBC, CMP #### [address] [address] Basophils/100 WBC (Bld) 0.9 % Normal 0.0-2.5 A [facility] ([place] Comment on above: Performed By: #### A BENEDICTO, GFR, ADIFF, TSH, CBC, CMP #### [address] [address] Eosinophil, Absolute 0.8 10 3/mcL High 0.0-0.4 [facility] ([place] Comment on above: Performed By: #### A BENEDICTO, GFR, ADIFF, TSH, CBC, CMP #### [address] [address] Eosinophils/100 WBC (Bld) 7.9 % High 0.0-7.0 [facility] ([place] Comment on above: Performed By: #### A BENEDICTO, GFR, ADIFF, TSH, CBC, CMP #### [address] [address] Lymphocyte, Absolute 3.0 10 3/mcL Normal 0.8-3.9 [facility] ([place] Comment on above: Performed By: #### A BENEDICTO, GFR, ADIFF, TSH, CBC, CMP #### [address] [address] Lymphocytes/100 WBC (Bld) 29.4 % Normal 10.0-50.0 [facility] ([place] Comment on above: Performed By: #### A BENEDICTO, GFR, ADIFF, TSH, CBC, CMP #### [address] [address] Monocyte, Absolute 0.5 10 3/mcL Normal 0.2-1.0 [facility] ([place] Comment on above: Performed By: #### A BENEDICTO, GFR, ADIFF, TSH, CBC, CMP #### [address] [address] Monocytes/100 WBC (Bld) 5.3 % Normal 1.7-13.0 A [facility] ([place] Comment on above: Performed By: #### A BENEDICTO, GFR, ADIFF, TSH, CBC, CMP #### [address] [address] Neutrophils/100 WBC (Bld) 56.5 % Normal 37.0-80.0 [facility] ([place] Comment on above: Performed By: #### A BENEDICTO, GFR, ADIFF, TSH, CBC, CMP #### [address] [address] .GFRon 11-10-2023 GFR Non- 58 ml/min/1.73sqm Normal [facility] ([place] Comment on above: Result Comment: GFR Population mean for , Non- Americans Ages 20-29 = 116 mL/min/1.73 sq.m. Ages 30-39 = 107 mL/min/1.73 sq.m. Ages 40-49 = 99 mL/min/1.73 sq.m. Ages 50-59 = 93 mL/min/1.73 sq.m. Ages 60-69 = 85 mL/min/1.73 sq.m. Ages 70+ = 75 mL/min/1.73 sq.m. Chronic Kidney Disease: Less than 60 mL/min/1.73 square meters End Stage Renal Disease: Less than 15 mL/min/1.73 square meters Performed By: #### A BENEDICTO, GFR, ADIFF, TSH, CBC, CMP #### [address] [address] GFR 71 ml/min/1.73sqm Normal [facility] ([place] Comment on above: Result Comment: GFR Population mean for , Non- Americans Ages 20-29 = 116 mL/min/1.73 sq.m. Ages 30-39 = 107 mL/min/1.73 sq.m. Ages 40-49 = 99 mL/min/1.73 sq.m. Ages 50-59 = 93 mL/min/1.73 sq.m. Ages 60-69 = 85 mL/min/1.73 sq.m. Ages 70+ = 75 mL/min/1.73 sq.m. Chronic Kidney Disease: Less than 60 mL/min/1.73 square meters End Stage Renal Disease: Less than 15 mL/min/1.73 square meters Performed By: #### A BENEDICTO, GFR, ADIFF, TSH, CBC, CMP #### [place] [id number] .NEUABSon 11-10-2023 Neutrophil, Absolute 5.8 10 3/mcL Normal 2.9-6.2 [facility] ([place] Comment on above: Performed By: #### A BENEDICTO, GFR, ADIFF, TSH, CBC, CMP #### [place] [address] CBCon 11-10-2023 Erythrocyte distribution width (RBC) [Ratio] 15.0 % High 11.5-14.5 [facility] ([place] Comment on above: Performed By: #### A BENEDICTO, GFR, ADIFF, TSH, CBC, CMP #### [place] [address] Hematocrit (Bld) [Volume fraction] 37.1 % Normal 37.0-47.0 [facility] ([place] Comment on above: Performed By: #### A BENEDICTO, GFR, ADIFF, TSH, CBC, CMP #### [place] [id number] Hgb 12.7 G/dL Normal 12.0-16.0 [facility] ([place] Comment on above: Performed By: #### A BENEDICTO, GFR, ADIFF, TSH, CBC, CMP #### [place] [id number] MCH (RBC) [Entitic mass] 28.2 pg Normal 27.0-31.2 [facility] ([place] Comment on above: Performed By: #### A BENEDICTO, GFR, ADIFF, TSH, CBC, CMP #### [address] [address] MCHC 34.2 G/dL Normal 33.0-37.0 [facility] ([place] Comment on above: Performed By: #### A BENEDICTO, GFR, ADIFF, TSH, CBC, CMP #### [address] [address] MCV (RBC) [Entitic vol] 82.3 fL Normal 80.0-94.0 [facility] ([place] Comment on above: Performed By: #### A BENEDICTO, GFR, ADIFF, TSH, CBC, CMP #### [address] [address] Platelet 292 10 3/mcL Normal 130-400 [facility] ([place] Comment on above: Performed By: #### A BENEDICTO, GFR, ADIFF, TSH, CBC, CMP #### [address] [address] Platelet mean volume (Bld) [Entitic vol] 7.5 fL Normal 7.4-10.4 [facility] ([place] Comment on above: Performed By: #### A BENEDICTO, GFR, ADIFF, TSH, CBC, CMP #### [address] [address] RBC 4.51 10 6/mcL Normal 4.20-5.40 [facility] ([place] Comment on above: Performed By: #### A BENEDICTO, GFR, ADIFF, TSH, CBC, CMP #### [address] [address] WBC 10.3 10 3/mcL Normal 4.6-10.8 [facility] ([place] Comment on above: Performed By: #### A BENEDICTO, GFR, ADIFF, TSH, CBC, CMP #### [address] [address] CMPon 11-10-2023 Albumin Level 3.6 G/dL Normal 3.4-4.8 [facility] ([place] Comment on above: Performed By: #### A BENEDICTO, GFR, ADIFF, TSH, CBC, CMP #### [address] [address] Albumin/Globulin [Mass ratio] 1.2 {ratio} Normal 1.1-2.5 [facility] ([place] Comment on above: Performed By: #### A BENEDICTO, GFR, ADIFF, TSH, CBC, CMP #### [address] [address] ALP [Catalytic activity/Vol] 76 U/L Normal 40-135 [facility] ([place] Comment on above: Performed By: #### A BENEDICTO, GFR, ADIFF, TSH, CBC, CMP #### [address] [address] ALT [Catalytic activity/Vol] 26 U/L Normal 14-59 [facility] ([place] Comment on above: Performed By: #### A BENEDICTO, GFR, ADIFF, TSH, CBC, CMP #### [address] [address] AST [Catalytic activity/Vol] 14 U/L Normal 10-40 [facility] ([place] Comment on above: Performed By: #### A BENEDICTO, GFR, ADIFF, TSH, CBC, CMP #### [address] [address] Bili Total 0.6 mg/dL Normal 0.2-1.0 [facility] ([place] Comment on above: Result Comment: Use of this assay is not recommended for patients undergoing treatment with eltrombopag due to the potential for falsely elevated results. Performed By: #### A BENEDICTO, GFR, ADIFF, TSH, CBC, CMP #### [address] [address] BUN/Creatinine Ratio 20 ratio Normal 7-27 [facility] ([place] Comment on above: Performed By: #### A BENEDICTO, GFR, ADIFF, TSH, CBC, CMP #### [address] [address] Calcium [Mass/Vol] 9.0 mg/dL Normal 8.4-10.2 [facility] ([place] Comment on above: Performed By: #### A BENEDICTO, GFR, ADIFF, TSH, CBC, CMP #### [address] [address] Chloride [Moles/Vol] 104 mmol/L Normal 98-107 [facility] ([place] Comment on above: Performed By: #### A BENEDICTO, GFR, ADIFF, TSH, CBC, CMP #### [address] [address] CO2 [Moles/Vol] 28 mmol/L Normal 23-31 [facility] ([place] Comment on above: Performed By: #### A BENEDICTO, GFR, ADIFF, TSH, CBC, CMP #### [address] [address] Creatinine [Mass/Vol] 0.96 mg/dL Normal 0.55-1.02 [facility] ([place] Comment on above: Performed By: #### A BENEDICTO, GFR, ADIFF, TSH, CBC, CMP #### [address] [address] Electrolyte Balance 14.0 mEq/L Normal 4.0-15.0 [facility] ([place] Comment on above: Performed By: #### A BENEDICTO, GFR, ADIFF, TSH, CBC, CMP #### [address] [address] Globulin 3.1 G/dL Normal [facility] ([place] Comment on above: Performed By: #### A BENEDICTO, GFR, ADIFF, TSH, CBC, CMP #### [address] [address] Glucose [Mass/Vol] 142 mg/dL High 80-115 [facility] ([place] Comment on above: Performed By: #### A BENEDICTO, GFR, ADIFF, TSH, CBC, CMP #### [address] [address] Potassium [Moles/Vol] 4.4 mmol/L Normal 3.5-5.1 [facility] ([place] Comment on above: Performed By: #### A BENEDICTO, GFR, ADIFF, TSH, CBC, CMP #### [address] [address] Sodium [Moles/Vol] 146 mmol/L High 136-145 [facility] ([place] Comment on above: Performed By: #### A BENEDICTO, GFR, ADIFF, TSH, CBC, CMP #### [address] [address] Total Protein 6.7 G/dL Normal 6.4-8.2 [facility] ([place] Comment on above: Performed By: #### A BENEDICTO, GFR, ADIFF, TSH, CBC, CMP #### [address] [address] Urea nitrogen [Mass/Vol] 19 mg/dL High 7-18 [facility] ([place] Comment on above: Performed By: #### A BENEDICTO, GFR, ADIFF, TSH, CBC, CMP #### [address] [address] TSHon 11-10-2023 TSH Qn 2.85 m[IU]/L Normal 0.36-3.74 [facility] ([place] Comment on above: Performed By: #### A BENEDICTO, GFR, ADIFF, TSH, CBC, CMP #### [address] [address] Basophil percentageOrdered B y: Dr. Rodgers on 12-01-2022 Bilirubin [Mass/Vol] 0.80 mg/dL 0.20-1.00 [facility] Comment on above: For patients on eltr ombopag therapy, use of Dimension [place] TBIL is not recommended. Chloride [Moles/Vol] 105 mmol/L 98-107 [facility] Cholesterol [Mass/Vol] 124 mg/dL <200 [facility] Comment on above: <200 mg/dL Desirable 200-240 mg/dL Borderline >240 mg/dL High Risk Glucose [Mass/Vol] 94 mg/dL 74-106 [facility] Potassium [Moles/Vol] 4.3 mmol/L 3.5-5.1 [facility] Protein [Mass/Vol] 7.2 g/dL 6.4-8.2 [facility] Sodium [Moles/Vol] 139 mmol/L 136-145 [facility] Triglyceride [Mass/Vol] 123 mg/dL <199 [facility] Comment on above: The drugs N-Acetylcy steine and Metamizole may falsely depress this assay.Serum Triglycerides Reference Interval Normal <150 mg/dL Borderline high 150 - 199 mg/dL High 200 - 499 mg/dL Very High > or = 500 mg/dL WBC (Bld) [#/Vol] 10.4 10*3/uL 4.4-11.0 [facility] Blood erythrocytes count (nu mber/volume)Ordered By: Dr. Rodgers on 12-01-2022 RBC (Bld) [#/Vol] 4.72 10*6/uL 4.2-5.4 [facility] Blood hemoglobin measurement (mass/volume)Ordered By: Dr. Rodgers on 12-01-2022 Hemoglobin (Bld) [Mass/Vol] 12.8 g/dL 12.0-15.0 [facility] Blood platelet mean volumeOr dered By: Dr. Rodgers on 12-01-2022 Platelet mean volume (Bld) [Entitic vol] 9.6 fL 6.2-12.0 [facility] Determination of erythrocyte mean corpuscular volume (MCV)Ordered By: Dr. Rodgers on 12-01-2022 MCV (RBC) [Entitic vol] 87.5 fL 81-99 [facility] Hematocrit Auto (Bld) [Volum e fraction]Ordered By: Dr. Rodgers on 12-01-2022 Hematocrit (Bld) [Volume fraction] 41.3 % 37-47 [facility] Laboratory - Chemistry and C hemistry - challengeOrdered By: Dr. Rodgers on 12-01-2022 ALP [Catalytic activity/Vol] 67 U/L 45-117 [facility] ALT [Catalytic activity/Vol] 22 U/L 13-56 [facility] CO2 [Moles/Vol] 27.0 mmol/L 21.0-32.0 [facility] Globulin (S) [Mass/Vol] 3.4 g/dL 2.2-4.2 [facility] Urea nitrogen/Creatinine [Mass ratio] 25.5 mg/mg 10-20 [facility] Laboratory - Hematology and Cell countsOrdered By: Dr. Rodgers on 12-01-2022 Erythrocyte distribution width (RBC) [Entitic vol] 44.5 fL 35.1-43.9 [facility] Erythrocyte distribution width (RBC) [Ratio] 13.8 % 11.6-14.6 [facility] MCH (RBC) [Entitic mass] 27.1 pg 27.0-32.0 [facility] MCHC Auto (RBC) [Mass/Vol]Or dered By: Dr. Rodgers on 12-01-2022 MCHC (RBC) [Mass/Vol] 31.0 g/dL 32-36 [facility] No Panel InformationOrdered By: Dr. Rodgers on 12-01-2022 Estimated GFR (MDRD) Amer 90 mL/min >60 [facility] Comment on above: GFR Calc Estimated GFR (MDRD) Non-Af Amer 74 mL/min >60 [facility] Comment on above: Non- GFR Calc Platelets bldOrdered By: Dr. Rodgers on 12-01-2022 Platelets (Bld) [#/Vol] 315 10*3/uL 150-450 [facility] Serum or plasma albumin antelmo urement (mass/volume)Ordered By: Dr. Rodgers on 12-01-2022 Albumin [Mass/Vol] 3.8 g/dL 3.2-5.0 [facility] Serum or plasma albumin/glob ulin mass ratioOrdered By: Dr. Rodgers on 12-01-2022 Albumin/Globulin [Mass ratio] 1.1 {ratio} 0.9-2.4 [facility] Serum or plasma calcium antelmo urement (mass/volume)Ordered By: Dr. Rodgers on 12-01-2022 Calcium [Mass/Vol] 9.0 mg/dL 8.5-10.1 [facility] Serum or plasma cholesterol in HDL measurement (mass/volume)Ordered By: Dr. Rodgers on 12-01-2022 Cholesterol in HDL [Mass/Vol] 37 mg/dL >40 [facility] Comment on above: The drugs N-Acetylcy steine and Metamizole may falsely depress this assay. Reference Range HDL <40 mg/dL Low HDL Cholesterol HDL >or= 60 mg/dL High HDL Cholesterol Serum or plasma cholesterol in VLDL measurement (mass/volume)Ordered By: Dr. Rodgers on 12-01-2022 Cholesterol in VLDL [Mass/Vol] 25 mg/dL 5-40 [facility] Serum or plasma creatinine m easurement (mass/volume)Ordered By: Dr. Rodgers on 12-01-2022 Creatinine [Mass/Vol] 0.82 mg/dL 0.55-1.02 [facility] Comment on above: The validity of the calculated GFR & GFRAA in patients over 70 years has not been determined. Clinical correlation is essential. Serum or plasma low density lipoprotein (LDL) cholesterol measurement (mass/volume)Ordered By: Dr. Rodgers on 12-01-2022 Cholesterol in LDL [Mass/Vol] 62 mg/dL 0-130 [facility] Serum or plasma urea nitroge n measurement (mass/volume)Ordered By: Dr. Rodgers on 12-01-2022 Urea nitrogen [Mass/Vol] 21 mg/dL 7-18 [facility] Thin prep Papanicolaou smear with manual screeningOrdered By: Dr. Rodgers on 12-01-2022 Thin prep Papanicolaou smear with manual screening 13 U/L 15-37 [facility] Thin prep Papanicolaou smear with manual screening 7 5-15 [facility] Whole blood hemoglobin A1c/t otal hemoglobin ratio (mass fraction)Ordered By: Dr. Rodgers on 12-01-2022 HbA1c (Bld) [Mass fraction] 6.7 % 3.8-5.6 [facility] Comment on above: Normal < 5.7 % Predi abetic 5.7 - 6.4 % Diabetic >or= 6.5 % Please note range changes. Vital Signs Date Time Vital Sign Value Performing Clinician Facility 03-27-2025 13:30-0400 Body height 154.[address] Atilio Sandoval DO Work Phone: [facility] 03-27-2025 13:30-0400 Body mass index (BMI) [Ratio] 25.3 kg/m2 Dr. Atilio Colon Work Phone: 2(249)[phone] [place] [address] 03-27-2025 13:30-0400 Body weight 60.[address] Atilio Colon Work Phone: 2(574)[phone] [place] [address] 03-27-2025 13:30-0400 Diastolic blood pressure 73 mm[Hg] Dr. Atilio Colon Work Phone: 4(417)614-625910 [place] [address] 03-27-2025 13:30-0400 Heart rate 80 /min Dr. Atilio Colon Work Phone: 0(046)885-989610 [place] [address] 03-27-2025 13:30-0400 SaO2% (BldA) [Mass fraction] 96 % Dr. Atilio Colon Work Phone: 5(671)032-526910 [place] [address] 03-27-2025 13:30-0400 Systolic blood pressure 117 mm[Hg] Dr. Atilio Colno Work Phone: 6(430)[phone] [place] [address] 03-13-2025 21:27-0400 Body temperature 100 [degF] Dr. Atilio Colon Work Phone: 9(849)[phone] [place] [address] 03-13-2025 21:27-0400 Diastolic blood pressure 85 mm[Hg] Dr. Atilio Colon Work Phone: 4(711)[phone] [place] [address] 03-13-2025 21:27-0400 Heart rate 70 /min Dr. Atilio Colon Work Phone: 0(298)[phone] [place] [address] 03-13-2025 21:27-0400 Respiratory rate 14 /min Dr. Atilio Colon Work Phone: 2(610)[phone] [place] [address] 03-13-2025 21:27-0400 SaO2% (BldA) [Mass fraction] 97 % Dr. Atilio Colon Work Phone: 3(764)[phone] [place] [address] 03-13-2025 21:27-0400 Systolic blood pressure 115 mm[Hg] Dr. Atilio Colon Work Phone: 4(650)[phone] [place] [address] 03-13-2025 18:46-0400 Body height 154.[address] Atilio Colon Work Phone: 2(953)[phone] [place] [address] 03-13-2025 18:46-0400 Body mass index (BMI) [Ratio] 26.6 kg/m2 Dr. Atilio Colon Work Phone: [facility] 03-13-2025 18:46-0400 Body weight 63.[address] Atilio Colon Work Phone: [facility] 04-28-2024 11:43-0400 Diastolic Blood Pressure Non-Invasive 70 mm[Hg] GERI FERNANDO MD [facility] 04-28-2024 11:43-0400 Heart rate 58 /min GERI FERNANDO MD [facility] 04-28-2024 11:43-0400 Systolic Blood Pressure Non-Invasive 119 mm[Hg] GERI FERNANDO MD [facility] 04-28-2024 11:30-0400 Diastolic Blood Pressure Non-Invasive 71 mm[Hg] GERI FERNANDO MD [facility] 04-28-2024 11:30-0400 Heart rate 62 /min GERI FERNANDO MD [facility] 04-28-2024 11:30-0400 Systolic Blood Pressure Non-Invasive 119 mm[Hg] GERI FERNANDO MD [facility] 04-28-2024 11:15-0400 Diastolic Blood Pressure Non-Invasive 69 mm[Hg] GERI FERNANDO MD [facility] 04-28-2024 11:15-0400 Heart rate 66 /min GERI FERNANDO MD [facility] 04-28-2024 11:15-0400 Systolic Blood Pressure Non-Invasive 102 mm[Hg] GERI FERNANDO MD [facility] 04-28-2024 10:55-0400 Respiratory Rate - Anes 13 br/min GERI FERNANDO MD [facility] 04-28-2024 09:10-0400 Body height 152.4 cm GERI FERNANDO MD [facility] 04-28-2024 09:10-0400 Body temperature 99.32 [degF] GERI FERNANDO MD [facility] 04-28-2024 09:10-0400 Body weight 64.5 kg GERI FERNANDO MD [facility] 04-28-2024 09:10-0400 Heart rate 72 /min GERI FERNANDO MD [facility] 04-28-2024 09:10-0400 Respiratory rate 18 /min GERI FERNANDO MD [facility] 04-25-2024 08:10-0400 Blood Pressure Cuff Size GERI FERNANDO MD [facility] 04-25-2024 08:10-0400 Blood Pressure Location GERI FERNANDO MD [facility] 04-25-2024 08:10-0400 Blood Pressure Method GERI FERNANDO MD [facility] 04-25-2024 08:10-0400 Body height 152.4 cm GERI FERNANDO MD [facility] 04-25-2024 08:10-0400 Body weight 64.5 kg GERI FERNANDO MD [facility] 04-25-2024 08:10-0400 Body weight 27.77 kg/m2 GERI FERNANDO MD [facility] 04-25-2024 08:10-0400 Diastolic Blood Pressure Non-Invasive 74 mm[Hg] GERI FERNANDO MD [facility] 04-25-2024 08:10-0400 Heart rate 73 /min GERI FERNANDO MD [facility] 04-25-2024 08:10-0400 Systolic Blood Pressure Non-Invasive 116 mm[Hg] GERI FERNANDO MD [facility] Encounters Encounter Date Encounter Type Care Provider Facility Start: 04-20-2025 ambulatory Nima Jones Facility: [facility] Start: 04-17-2025 ambulatory Pedro Zendejas Facility :[facility] Start: 04-10-2025 Encounter for genera l adult medical examination without abnormal findings JOSE WOODETLER [facility] Start: 04-10-2025 ambulatory JOSE PATEL Facilit y:[facility] Start: 03-27-2025 End: 03-27-[address] Nima Jones MD -[facility] Work Phone: Start: 03-27-2025 End: 03-27-[address] Atilio Colon Work Phone: [facility] Work Phone: Start: 03-13-2025 End: 03-13-2025 Emergency department patient visit Dr. Atilio Colon Work Phone: -Emergency Department Work Phone: Start: 09-19-2024 End: 09-19-2024 ambulatory [facility] Facility:[facility] Start: 04-28-2024 End: 04-28-2024 ambulatory [facility] Facility: Start: 04-28-2024 End: 04-28-2024 SAME DAY STAY GERI FERNANDO MD [facility] Start: 04-25-2024 End: 04-25-2024 Admission to establishment GERI FERNANDO MD [facility] Start: 04-25-2024 End: 04-25-2024 ambulatory NOLBERTO RODGERS DO Facility:B Start: 04-05-2024 End: 04-05-2024 ambulatory NOLBERTO OZIEL DO Facility:[facility] Start: 12-14-2023 End: 12-14-2023 ambulatory [facility] Work Phone: Start: 12-14-2023 End: 12-14-2023 Patient encounter procedure [facility]Labor[facility] Work Phone: Start: 11-30-2023 End: 12-04-2023 ambulatory NOLBERTO RODGERS DO Facility:[facility] Start: 11-30-2023 End: 12-04-2023 Outreach Lab NOLBERTO RODGERS DO [facility] Start: 11-10-2023 End: 11-10-2023 ambulatory NOLBERTO RODGERS Facility:[facility] Start: 08-31-2023 End: 08-31-2023 ambulatory [facility] Work Phone: Start: 08-31-2023 End: 08-31-2023 Patient encounter procedure [facility]Out[facility] Breast Imaging Work Phone: Start: 12-01-2022 End: 12-01-2022 ambulatory [facility] Work Phone: Start: 12-01-2022 End: 12-01-2022 Patient encounter procedure [facility] Start: 08-11-2022 End: 08-11-2022 ambulatory [facility] Work Phone: Start: 08-11-2022 End: 08-11-2022 Patient encounter procedure [facility] Procedures Date Procedure Procedure Detail Performing Clinician Start: 03-13-[address] Atilio Sandoval DO Work Phone: Start: 03-13-2025 US scan of gallbladder Dr. Atilio Sandoval DO Work Phone: Start: 08-31-2023 Screening mammography Start: 08-11-2022 Screening mammography Start: 11-29-2018 Colonoscopy NOLBERTO CONRAD DO Comment on above: [place] section NOLBERTO BAR JITENDRA DO Ligation of fallopian tube R JAROD RODGERS DO Plan of Treatment Date Care Activity Detail Author Start: 03-13-2025 [facility] Patient Education ED Gastritis (Adult) [facility] Work Phone: Patient referral [facility] Work Phone: Immunizations Immunization Date Immunization Notes Care Provider Fa cilitatiana 01-24-2021 Covid (Pfizer) [facility] 01-03-2021 Covid (Pfizer) [facility] Payers Date Payer Category Payer Self-pay [id number] 2023 Medicare [id number] 1960 Unknown [id number] 2.16.8 [id number] 1960 Unknown [id number] 2.16.8 [id number] 1960 Unknown [id number] 2.16.8 [id number] 1960 Unknown [id number] 2.16.8 [id number] 1960 Unknown [id number] 2.16.8 [id number] Medicare MEDICARE PART A B [id number] Unknown ANTHEM EXCHANGE PLAN [id number] Unknown ANTHEM [id number] Unknown AULTCARE [id number] Unknown [facility] [id number] Unknown ANTHEM [id number] Unknown [id number] 2.16.8 [id number] Unknown [id number] 2.16.8 [id number] Unknown [id number] 2.16.8 [id number] Unknown [id number] 2.16.8 [id number] Unknown [id number] 2.16.8 [id number] Unknown [id number] 2.16.8 [id number] Social History Date Type Detail Facility Start: 08-29-2015 End: 08-29-2015 Tobacco smoking status NHIS Unknown if ever smoked [facility] Start: 1960 Sex Assigned At Female [facility] Start: 04-19-2019 End: 03-23-2025 Tobacco smoking status Never smoked tobacco (finding) [facility] Medical Equipment Procedure Code Equipment Code Equipment Origin al Text Equipment Identifier Dates See Instructions , One Touch Ultra Blue Test Strips, #100, UAD to terst BS daily, # 100 EA, 11 Refill(s), Pharmacy: [facility], Diabetes, 154, cm, 06/04/20 15:29:00 EDT, Height, 66.2, kg, 06/04/20 15:29:00 EDT, Dosing Weight Start: 07-27-2020 See Instructions , Dispense One Touch delicate lancets, 33gauge, #100, UAD daily to check blood sugar, # 100 EA, 3 Refill(s), Pharmacy: [facility], Diabetes, 155, cm, 03/09/23 9:33:00 EDT, Height, 67.3, kg, 03/09/23 9:33:00 EDT, Dosing Weight Start: 05-13-2023 See Instructions , One Touch Ultra Blue Test Strips, #100, UAD to terst BS daily, # 100 EA, 11 Refill(s), Pharmacy: [facility], Diabetes, 154, cm, 06/04/20 15:29:00 EDT, Height, 66.2, kg, 06/04/20 15:29:00 EDT, Dosing Weight Start: 07-27-2020 See Instructions , Dispense One Touch delicate lancets, 33gauge, #100, UAD daily to check blood sugar, # 100 EA, 3 Refill(s), Pharmacy: [facility], Diabetes, 155, cm, 03/09/23 9:33:00 EDT, Height, 67.3, kg, 03/09/23 9:33:00 EDT, Dosing Weight Start: 05-13-2023 See Instructions , One Touch Ultra Blue Test Strips, #100, UAD to terst BS daily, # 100 EA, 11 Refill(s), Pharmacy: [facility], Diabetes, 154, cm, 06/04/20 15:29:00 EDT, Height, 66.2, kg, 06/04/20 15:29:00 EDT, Dosing Weight Start: 07-27-2020 See Instructions , Dispense One Touch delicate lancets, 33gauge, #100, UAD daily to check blood sugar, # 100 EA, 3 Refill(s), Pharmacy: [facility], Diabetes, 155, cm, 03/09/23 9:33:00 EDT, Height, 67.3, kg, 03/09/23 9:33:00 EDT, Dosing Weight Start: 05-13-2023 Functional Status Date Assessment Result Facility 04-28-2024 Functional Status Maintained [facility] 04-25-2024 Functional Status Sensory Deficits None A [facility] Mental Status Date Assessment Result Facility 04-28-2024 Mental Status Oriented x [address] [facility] 04-28-2024 Mental [address] [facility] Clinical Notes 04-28-2024 to 03-13-2025 LaboratoryRadiology Note Date & Type Note Facility 03-13-2025 Radiology Diagnostic study note [facility] Imaging Services [address] [place], [place] [address] Gallbladder MR#: [id number] Acct: [id number] Name: ADORE SAAVEDRA Rep #: [id number] : 1960 F 64 From: Valeriy Bear MD PCP: JOSE PATEL Status: REG E R Study:Gallbladder Date of Exam: 03/13/25 Exam# [id number] Ordering Dr: Atilio Sandoval DO PROCEDURE: GALLBLADDER 03/13/2025 REASON FOR EXAM: PAIN FINDINGS: Normal appearance to the liver and no evidence of intrahepatic biliary dilatation. No Hernandez's sign involving the gallbladder. No gallstones or pericholecystic fluid. Pancreas and right kidney unremarkable. No hydronephrosis. There is a cyst with septation in the right lobe of the liver measuring 61 x 68 x 76 mm US/Gallbladder IMPRESSION: Normal gallbladder. Liver cyst. Reading Location: [facility] CC: Dr. Atilio Sandoval DO; JOSE PATEL ~ Textile Artist: Signed [facility] 04-28-2024 Hospital Discharge instructions Patient Education 04/28/2024 11:20:02 How to Use an Incentive Spirometer How To Use an Incentive Spirometer An incentive spirometer is a tool that measures how well you are filling your lungs with each breath. Learning to take long, deep breaths using this tool can help you keep your lungs clear and active. This may help to reverse or lessen your chance of developing breathing (pulmonary) problems, especially infection. You may be asked to use a spirometer: After a surgery. If you have a lung problem or a history of smoking. After a long period of time when you have been unable to move or be active. If the spirometer includes an indicator to show the highest number that you have reached, your health care provider or respiratory therapist will help you set a goal. Keep a list (log) of your progress as told by your health care provider. What are the risks? Breathing too quickly may cause dizziness or cause you to pass out. Take your time so you do not get dizzy or light-headed. If you are in pain, you may need to take pain medicine before doing incentive spirometry. It is harder to take a deep breath if you are having pain. How to use your incentive spirometer 1.Sit up on the edge of your bed or on a chair. 2.Hold the incentive spirometer so that it is in an upright position. 3.Before you use the spirometer, breathe out normally. 4.Place the mouthpiece in your mouth. Make sure your lips are closed tightly around it. 5.Breathe in slowly and as deeply as you can through your mouth, causing the piston or the ball to rise toward the top of the chamber. 6.Hold your breath for 3 5 seconds, or for as long as possible. If the spirometer includes a motor coach chauffeur indicator, use this to guide you in breathing. Slow down your breathing if the indicator goes above the marked areas. 7.Remove the mouthpiece from your mouth and breathe out normally. The piston or ball will return to the bottom of the chamber. 8.Rest for a few seconds, then repeat the steps 10 or more times. Take your time and take a few normal breaths between deep breaths so that you do not get dizzy or light-headed. Do this every 1 2 hours when you are awake. 9.If the spirometer includes a goal marker to show the highest number you have reached (best effort), use this as a goal to work toward during each repetition. 10.After each set of 10 deep breaths, cough a few times. This will help to make sure that your lungs are clear. If you have an incision on your chest or abdomen from surgery, place a pillow or a rolled-up towel firmly against the incision when you cough. This can help to reduce pain from coughing. General tips When you become able to get out of bed, walk around often and continue to cough to help clear your lungs. Keep using the incentive spirometer until your health care provider says it is okay to stop using it. If you have been in the hospital, you may be told to keep using the spirometer at home. Contact a health care provider if: You are having difficulty using the spirometer. You have trouble using the spirometer as often as instructed. Your pain medicine is not giving enough relief for you to use the spirometer as told. You have a fever. You develop shortness of breath. Get help right away if: You develop a cough with bloody mucus from the lungs (bloody sputum). You have fluid or blood coming from an incision site after you cough. Summary An incentive spirometer is a tool that can help you learn to take long, deep breaths to keep your lungs clear and active. You may be asked to use a spirometer after a surgery, if you have a lung problem or a history of smoking, or if you have been inactive for a long period of time. Use your incentive spirometer as instructed every 1 2 hours while you are awake. If you have an incision on your chest or abdomen, place a pillow or a rolled-up towel firmly against your incision when you cough. This will help to reduce pain. This information is not intended to replace advice given to you by your health care provider. Make sure you discuss any questions you have with your health care provider. Document Released: 02/15/2008 Document Revised: 10/28/2018 Document Reviewed: 08/18/2018 [employer] Patient Education 2020 [employer]. 04/28/2024 11:19:52 Monitored Anesthesia Care, Care After Monitored Anesthesia Care, Care After These instructions provide you with information about caring for yourself after your procedure. Your health care provider may also give you more specific instructions. Your treatment has been planned according to current medical practices, but problems sometimes occur. Call your health care provider if you have any problems or questions after your procedure. What can I expect after the procedure? After your procedure, you may: Feel sleepy for several hours. Feel clumsy and have poor balance for several hours. Feel forgetful about what happened after the procedure. Have poor judgment for several hours. Feel nauseous or vomit. Have a sore throat if you had a breathing tube during the procedure. Follow these instructions at home: For at least 24 hours after the procedure: Have a responsible adult stay with you. It is important to have someone help care for you until you are awake and alert. Rest as needed. Do not: ?Participate in activities in which you could fall or become injured. ?Drive. ?Use heavy machinery. ?Drink alcohol. ?Take sleeping pills or medicines that cause drowsiness. ?Make important decisions or sign legal documents. ?Take care of children on your own. Eating and drinking Follow the diet that is recommended by your health care provider. If you vomit, drink water, juice, or soup when you can drink without vomiting. Make sure you have little or no nausea before eating solid foods. General instructions Take rave-qju-dohzwat and prescription medicines only as told by your health care provider. If you have sleep apnea, surgery and certain medicines can increase your risk for breathing problems. Follow instructions from your health care provider about wearing your sleep device: ?Anytime you are sleeping, including during daytime naps. ?While taking prescription pain medicines, sleeping medicines, or medicines that make you drowsy. If you smoke, do not smoke without supervision. Keep all follow-up visits as told by your health care provider. This is important. Contact a health care provider if: You keep feeling nauseous or you keep vomiting. You feel light-headed. You develop a rash. You have a fever. Get help right away if: You have trouble breathing. Summary For several hours after your procedure, you may feel sleepy and have poor judgment. Have a responsible adult stay with you for at least 24 hours or until you are awake and alert. This information is not intended to replace advice given to you by your health care provider. Make sure you discuss any questions you have with your health care provider. Document Released: 01/25/2017 Document Revised: 01/03/2019 Document Reviewed: 01/25/2017 [employer] Patient Education 2020 [employer]. 04/28/2024 11:19:44 Lipoma Removal, Care After Lipoma Removal, Care After Refer to this sheet in the next few weeks. These instructions provide you with information about caring for yourself after your procedure. Your health care provider may also give you more specific instructions. Your treatment has been planned according to current medical practices, but problems sometimes occur. Call your health care provider if you have any problems or questions after your procedure. What can I expect after the procedure? After the procedure, it is common to have: Mild pain. Swelling. Bruising. Follow these instructions at home: Bathing Do not take baths, swim, or use a hot tub until your health care provider approves. Ask your health care provider if you can take showers. You may only be allowed to take sponge baths for bathing. Keep your bandage (dressing) dry until your health care provider says it can be removed. Incision care Follow instructions from your health care provider about how to take care of your incision. Make sure you: ?Wash your hands with soap and water before you change your bandage (dressing). If soap and water are not available, use hand raymond mill operator. ?Change your dressing as told by your health care provider. ?Leave stitches (sutures), skin glue, or adhesive strips in place. These skin closures may need to stay in place for 2 weeks or longer. If adhesive strip edges start to loosen and curl up, you may trim the loose edges. Do not remove adhesive strips completely unless your health care provider tells you to do that. Check your incision area every day for signs of infection. Check for: ?More redness, swelling, or pain. ?Fluid or blood. ?Warmth. ?Pus or a bad smell. Driving Do not drive or operate heavy machinery while taking prescription pain medicine. Do not drive for 24 hours if you received a medicine to help you relax (sedative) during your procedure. Ask your health care provider when it is safe for you to drive. General instructions Take liam-idn-fcnzzpr and prescription medicines only as told by your health care provider. Do not use any tobacco products, such as cigarettes, chewing tobacco, and e-cigarettes. These can delay healing. If you need help quitting, ask your health care provider. Return to your normal activities as told by your health care provider. Ask your health care provider what activities are safe for you. Keep all follow-up visits as told by your health care provider. This is important. Contact a health care provider if: You have more redness, swelling, or pain around your incision. You have fluid or blood coming from your incision. Your incision feels warm to the touch. You have pus or a bad smell coming from your incision. You have pain that does not get better with medicine. Get help right away if: You have chills or a fever. You have severe pain. This information is not intended to replace advice given to you by your health care provider. Make sure you discuss any questions you have with your health care provider. Document Released: 12/18/2016 Document Revised: 05/28/2017 Document Reviewed: 12/18/2016 [employer] Patient Education 2020 [employer]. Follow Up Care 04/18/2024 14:48:23 With:GERI FERNANDO Address: [address] [place] [address]- [phone] Business (1) When:Within 2 Week(s) [facility] 04-28-2024 Summary of episode note Discharge Instructions Thank you for allowing [facility] to assist you with your healthcare needs. The following is important discharge information regarding your hospital visit. Your Care Team NOLBERTO RODGERS DO What to do next Scheduled Follow-Up Appointments Appointment Type When With Where Contact Information StatusGS OV Post Op 05/16/2024 02:00 PM EDT GERI FERNANDO MD [facility] Confirmed PC OV Controlled Medication 06/13/2024 11:30 AM EDT NOLBERTO RODGERS DO [facility] Confirmed Follow Up Appointments Follow Up with GERI FERNANDO When:In 2 weeks Where:[address] [place] [address] [phone] Business (1) The Following Activity and Diet Have Been Ordered for You Discharge Activity - Ordered -- Sexual [place] Restricted No bending, twisting, crawling or squatt, No shower or tub bath for 2 days; no driving for 5 days, no lifting >15 lbs, 04/28/24 11:11:00 EDT Discharge Diet - Ordered -- Follow the post-operative/post-procedure diet instructions provided by your physician's office., 04/28/24 11:11:00 EDT The Following Equipment Has Been Ordered for You Discharge Home Equipment Discharge Wound Care - Ordered -- Dressing Type: Dry sterile drsg, Remove dressing in two (2) days. Leave steristrips on until they fall off, 04/28/24 11:11:00 EDT The Following Treatments Have Been Ordered for You Discharge Labs No qualifying data available. Discharge Radiology No qualifying data available. Other Therapies No qualifying data available. Post Acute Orders No qualifying data available. Someone Will Contact You Regarding These Home Health Referrals No home referrals have been ordered for you. No one will call you. Allergies penicillins sulfa drugs Medications Please ask your primary doctor or pharmacist before taking any other medication not listed, including over the counter drugs, herbal medications, vitamins and or supplements as they may interact with your home medications. What How Much When Why Instructions Last Dose Unchanged atorvastatin (atorvastatin 20 mg oral tablet) 1 tab(s) by mouth Once a day Hypercholesterolemia Duration: 100 Days Unchanged busPIRone (busPIRone 15 mg oral tablet) 1.5 tab(s) by mouth Two (2) times a day Unchanged citalopram (citalopram 20 mg oral tablet) 1 tab(s) by mouth Once a day Unchanged DME (DME MISCellaneous) See instructions Diabetes One Touch Ultra Blue Test Strips, #100, UAD to terst BS daily Unchanged DME (DME MISCellaneous) See instructions Diabetes Dispense Dexcom transmitter units, #3, use as directed to monitor blood sugar continuously, change unit every 10days. Diagnosis: E 11.9 Unchanged DME (Lancets) See instructions Diabetes Dispense One Touch delicate lancets, 33gauge, #100, UAD daily to check blood sugar Unchanged ketotifen ophthalmic ([place] Preservative Free 0.025% ophthalmic solution) 1 Drops Every 8 hours Unchanged lisinopril (lisinopril 2.5 mg oral tablet) TAKE 1 TABLET BY MOUTH ONCE DAILY Unchanged metFORMIN (metFORMIN 500 mg oral tablet EXTENDED RELEASE) 4 tab(s) by mouth Every day Duration: 100 Days Unchanged Misc Medication (ONETOUCH DELICA MIGEL 33G MIS) See instructions USE TO CHECK GLUCOSE ONCE DAILY Unchanged multivitamin with minerals (PreserVision AREDS) Unchanged zolpidem (zolpidem 10 mg oral tablet) TAKE 1 TABLET BY MOUTH EVERY DAY AT BEDTIME NEEDED FOR SLEEP FOR 90 DAYS Please take this list to your next doctor s visit. Bring all medications you take, including over the counter medications, herbals and other supplements with you to your doctor s visit. Patients and families are reminded to discard old lists and to update any records with all medication providers or retail pharmacies. Education Materials How To Use an Incentive Spirometer An incentive spirometer is a tool that measures how well you are filling your lungs with each breath. Learning to take long, deep breaths using this tool can help you keep your lungs clear and active. This may help to reverse or lessen your chance of developing breathing (pulmonary) problems, especially infection. You may be asked to use a spirometer: After a surgery. If you have a lung problem or a history of smoking. After a long period of time when you have been unable to move or be active. If the spirometer includes an indicator to show the highest number that you have reached, your health care provider or respiratory therapist will help you set a goal. Keep a list (log) of your progress as told by your health care provider. What are the risks? Breathing too quickly may cause dizziness or cause you to pass out. Take your time so you do not get dizzy or light-headed. If you are in pain, you may need to take pain medicine before doing incentive spirometry. It is harder to take a deep breath if you are having pain. How to use your incentive spirometer 1. Sit up on the edge of your bed or on a chair. 2. Hold the incentive spirometer so that it is in an upright position. 3. Before you use the spirometer, breathe out normally. 4. Place the mouthpiece in your mouth. Make sure your lips are closed tightly around it. 5. Breathe in slowly and as deeply as you can through your mouth, causing the piston or the ball to rise toward the top of the chamber. 6. Hold your breath for 3 5 seconds, or for as long as possible. If the spirometer includes a motor coach chauffeur indicator, use this to guide you in breathing. Slow down your breathing if the indicator goes above the marked areas. 7. Remove the mouthpiece from your mouth and breathe out normally. The piston or ball will return to the bottom of the chamber. 8. Rest for a few seconds, then repeat the steps 10 or more times. Take your time and take a few normal breaths between deep breaths so that you do not get dizzy or light-headed. Do this every 1 2 hours when you are awake. 9. If the spirometer includes a goal marker to show the highest number you have reached (best effort), use this as a goal to work toward during each repetition. 10. After each set of 10 deep breaths, cough a few times. This will help to make sure that your lungs are clear. If you have an incision on your chest or abdomen from surgery, place a pillow or a rolled-up towel firmly against the incision when you cough. This can help to reduce pain from coughing. General tips When you become able to get out of bed, walk around often and continue to cough to help clear your lungs. Keep using the incentive spirometer until your health care provider says it is okay to stop using it. If you have been in the hospital, you may be told to keep using the spirometer at home. Contact a health care provider if: You are having difficulty using the spirometer. You have trouble using the spirometer as often as instructed. Your pain medicine is not giving enough relief for you to use the spirometer as told. You have a fever. You develop shortness of breath. Get help right away if: You develop a cough with bloody mucus from the lungs (bloody sputum). You have fluid or blood coming from an incision site after you cough. Summary An incentive spirometer is a tool that can help you learn to take long, deep breaths to keep your lungs clear and active. You may be asked to use a spirometer after a surgery, if you have a lung problem or a history of smoking, or if you have been inactive for a long period of time. Use your incentive spirometer as instructed every 1 2 hours while you are awake. If you have an incision on your chest or abdomen, place a pillow or a rolled-up towel firmly against your incision when you cough. This will help to reduce pain. This information is not intended to replace advice given to you by your health care provider. Make sure you discuss any questions you have with your health care provider. Document Released: 02/15/2008 Document Revised: 10/28/2018 Document Reviewed: 08/18/2018 [employer] Patient Education 2020 [employer] Monitored Anesthesia Care, Care After These instructions provide you with information about caring for yourself after your procedure. Your health care provider may also give you more specific instructions. Your treatment has been planned according to current medical practices, but problems sometimes occur. Call your health care provider if you have any problems or questions after your procedure. What can I expect after the procedure? After your procedure, you may: Feel sleepy for several hours. Feel clumsy and have poor balance for several hours. Feel forgetful about what happened after the procedure. Have poor judgment for several hours. Feel nauseous or vomit. Have a sore throat if you had a breathing tube during the procedure. Follow these instructions at home: For at least 24 hours after the procedure: Have a responsible adult stay with you. It is important to have someone help care for you until you are awake and alert. Rest as needed. Do not: ? Participate in activities in which you could fall or become injured. ? Drive. ? Use heavy machinery. ? Drink alcohol. ? Take sleeping pills or medicines that cause drowsiness. ? Make important decisions or sign legal documents. ? Take care of children on your own. Eating and drinking Follow the diet that is recommended by your health care provider. If you vomit, drink water, juice, or soup when you can drink without vomiting. Make sure you have little or no nausea before eating solid foods. General instructions Take wtvd-vys-kkzdwyo and prescription medicines only as told by your health care provider. If you have sleep apnea, surgery and certain medicines can increase your risk for breathing problems. Follow instructions from your health care provider about wearing your sleep device: ? Anytime you are sleeping, including during daytime naps. ? While taking prescription pain medicines, sleeping medicines, or medicines that make you drowsy. If you smoke, do not smoke without supervision. Keep all follow-up visits as told by your health care provider. This is important. Contact a health care provider if: You keep feeling nauseous or you keep vomiting. You feel light-headed. You develop a rash. You have a fever. Get help right away if: You have trouble breathing. Summary For several hours after your procedure, you may feel sleepy and have poor judgment. Have a responsible adult stay with you for at least 24 hours or until you are awake and alert. This information is not intended to replace advice given to you by your health care provider. Make sure you discuss any questions you have with your health care provider. Document Released: 01/25/2017 Document Revised: 01/03/2019 Document Reviewed: 01/25/2017 [employer] Patient Education 2020 [employer] Lipoma Removal, Care After Refer to this sheet in the next few weeks. These instructions provide you with information about caring for yourself after your procedure. Your health care provider may also give you more specific instructions. Your treatment has been planned according to current medical practices, but problems sometimes occur. Call your health care provider if you have any problems or questions after your procedure. What can I expect after the procedure? After the procedure, it is common to have: Mild pain. Swelling. Bruising. Follow these instructions at home: Bathing Do not take baths, swim, or use a hot tub until your health care provider approves. Ask your health care provider if you can take showers. You may only be allowed to take sponge baths for bathing. Keep your bandage (dressing) dry until your health care provider says it can be removed. Incision care Follow instructions from your health care provider about how to take care of your incision. Make sure you: ? Wash your hands with soap and water before you change your bandage (dressing). If soap and water are not available, use hand raymond mill operator. ? Change your dressing as told by your health care provider. ? Leave stitches (sutures), skin glue, or adhesive strips in place. These skin closures may need to stay in place for 2 weeks or longer. If adhesive strip edges start to loosen and curl up, you may trim the loose edges. Do not remove adhesive strips completely unless your health care provider tells you to do that. Check your incision area every day for signs of infection. Check for: ? More redness, swelling, or pain. ? Fluid or blood. ? Warmth. ? Pus or a bad smell. Driving Do not drive or operate heavy machinery while taking prescription pain medicine. Do not drive for 24 hours if you received a medicine to help you relax (sedative) during your procedure. Ask your health care provider when it is safe for you to drive. General instructions Take suwn-eeo-vbncplh and prescription medicines only as told by your health care provider. Do not use any tobacco products, such as cigarettes, chewing tobacco, and e-cigarettes. These can delay healing. If you need help quitting, ask your health care provider. Return to your normal activities as told by your health care provider. Ask your health care provider what activities are safe for you. Keep all follow-up visits as told by your health care provider. This is important. Contact a health care provider if: You have more redness, swelling, or pain around your incision. You have fluid or blood coming from your incision. Your incision feels warm to the touch. You have pus or a bad smell coming from your incision. You have pain that does not get better with medicine. Get help right away if: You have chills or a fever. You have severe pain. This information is not intended to replace advice given to you by your health care provider. Make sure you discuss any questions you have with your health care provider. Document Released: 12/18/2016 Document Revised: 05/28/2017 Document Reviewed: 12/18/2016 [employer] Patient Education 2020 [employer]. Additional Information VACCINATE! IT SAVES LIVES! Members of the community who have not yet received the COVID-19 vaccine and would like to receive it can visit one of [facility] vaccine clinics. There are many vaccine clinic locations within the [facility]. For locations and available times, please visit [email or web address].[place] .gov/. It is important to note that some COVID mobile vaccine clinics are held outdoors and may be canceled in rainy or stormy conditions. To learn more about pediatric vaccinations (ages 5-11), we invite you to visit the [facility] webpage. [email or web address]/page [email or web address]-[email or web address]-[email or web address] -[email or web address]-Questions.[email or web address] To learn more about the [email or web address] vaccine, we invite you to visit the CDC website for a list of frequently asked questions.https://www.cdc.gov/coron avirus/2019-ncov/vaccines/faq.html [facility] Patient Portal Access Instructions: Stay connected with your healthcare team and access your personal medical information anytime with the [facility] Patient Portal. Please follow the directions below to create your [facility] account: 1.Access the email account you provided upon registration to the hospital/physician office.2.Look for an invitation email from [facility].3.Open the email and access the invitation link: Accept Invitation to [facility].4.Fill in the required hawley to create your account. To access your account, visit [email or web address]. Click the blue button labeled Access Patient Portal and then log in with the username and password that you created in the steps above. You will be able to view your test results, lab results, a summary of your visits, upcoming appointments and more. There is also a convenient messaging option where you can send secure messages to your provider. In addition, you will have the ability to download any documents or summaries to your computer and/or send the information securely to a physician. Remember that your healthcare information is confidential, so carefully consider who you will allow to register on the [facility] Patient Portal for access to your information. You can also access the [facility] Patient Portal on the [facility] william. Simply click on Patient Portal and then log into your account. If you would like to receive a full copy of your medical records, please contact the [facility] Medical Records Department by calling [phone], Thursday through Thursday between 8 a.m. and 4:30 p.m. HOW TO SAFELY DISPOSE OF PRESCRIPTION MEDICATIONS Please use one of the following methods to safely dispose of your unused medications. 1.Use a drug disposal kit: the drug disposal pouch allows you to safely discard your old and unused drugs. Ask your nurse to give you one when you are discharged.2.Visit a local take-back location: Many local pharmacies and police departments have programs that collect old and unwanted prescription drugs. Call your local pharmacy or go to [email or web address] to find one close to you.3.Make use of household items: Use cat litter or old coffee grounds to dispose medications if other options are not available. Mix your drugs with these household products, seal them in an airtight container and throw it into the garbage. Call [facility]: [phone] to be sure your drugs can be disposed of in this way. Some medicines may require a different approach.4.Never flush your medications down the toilet. IF YOU HAVE BEEN PRESCRIBED AN OPIOID FOR PAIN If you have been prescribed an opioid (such as hydrocodone, oxycodone or morphine), it is critical to understand the possible side effects and risks of opioid pain medications. Even when taken as directed, opioids can have several side effects including: Tolerance, meaning you might need to take more of a medication for the same pain relief. Nausea, vomiting and/or constipation. Sleepiness, dizziness, dry mouth, confusion, depression or itching. Physical dependence, meaning you have withdrawal symptoms when a medication is stopped, can develop within a few days. KNOW YOUR RESPONSIBILITIES It is important to know exactly how much and how often to take the opioid pain medications you are prescribed. Never take opioids in higher amounts or more often than prescribed. Do not combine opioids with alcohol or other drugs that cause drowsiness, such as benzodiazepines, also known as benzos, including diazepam and alprazolam, muscle relaxants or sleep aids. Never sell or share prescription opioids. This is illegal. Store opioids in a secure place and out of reach of others (including children, family, friends and visitors). The last page of this document has been signed and retained as a CHART COPY. Signatures Patient Education Materials How to Use an Incentive Spirometer Monitored Anesthesia Care, Care After Lipoma Removal, Care After Medication Leaflets My discharge plan and instructions have been reviewed and explained to me and I,ADORE SAAVEDRA I understand my current condition and have read and understand these discharge instructions. I have received a written copy of the plan/instructions. If I have questions, I am aware that I should contact my doctor. 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 Family's history: negative. Review of Systems Ear/Nose/Mouth/Throat: Negative except as documented in history of present illness. Respiratory: Negative except as documented in history of present illness. Cardiovascular: Negative except as documented in history of present illness. Gastrointestinal: Negative except as documented in history of present illness. Genitourinary: Negative except as documented in history of present illness. Endocrine: Negative except as documented in history of present illness. Musculoskeletal: Negative except as documented in history of present illness. Integumentary: Negative except as documented in history of present illness. Neurologic: Negative except as documented in history of present illness. Health Status Allergies: Allergic Reactions (Selected) Severity Not Documented Penicillins- No reactions were documented. Sulfa drugs- No reactions were documented., Allergies (2) ActiveSeverityReaction penicillinsNone Documented sulfa drugsNone Documented Current medications: (Selected) Inpatient Medications Ordered Caldolor: 800 mg, 8 mL, 500 mL/hr, IV Piggyback, PREOP pharm LR 1000 mL: 20 mL/hr, Intravenous gabapentin: 300 mg, 1 cap(s), Oral, PREOP pharm Prescriptions Prescribed DME MISCellaneous: See Instructions, Dispense Dexcom transmitter units, #3, use as directed to monitor blood sugar continuously, change unit every 10days. Diagnosis: E 11.9, 3 EA, 11 Refill(s) DME MISCellaneous: See Instructions, One Touch Ultra Blue Test Strips, #100, UAD to terst BS daily, 100 EA, 11 Refill(s) Lancets: See Instructions, Dispense One Touch delicate lancets, 33gauge, #100, UAD daily to check blood sugar, 100 EA, 3 Refill(s) ONETOUCH DELICA MIGEL 33G MIS: See Instructions, USE TO CHECK GLUCOSE ONCE DAILY, 100 EA, 3 Refill(s) atorvastatin 20 mg oral tablet: 20 mg, 1 tab(s), Oral, qDay, for 100 day(s), 100 tab(s), 3 Refill(s) busPIRone 15 mg oral tablet: 22.5 mg, 1.5 tab(s), Oral, BID, 270 tab(s), 3 Refill(s) citalopram 20 mg oral tablet: 20 mg, 1 tab(s), Oral, qDay, 90 tab(s), 3 Refill(s) metFORMIN 500 mg oral tablet EXTENDED RELEASE: 2,000 mg, 4 tab(s), Oral, Daily, for 100 day(s), 400 tab(s), 3 Refill(s) Documented Medications Documented [place] Preservative Free 0.025% ophthalmic solution: 1 drop(s), q8h, 0 Refill(s) PreserVision AREDS: 0 Refill(s) lisinopril 2.5 mg oral tablet: TAKE 1 TABLET BY MOUTH ONCE DAILY zolpidem 10 mg oral tablet: TAKE 1 TABLET BY MOUTH EVERY DAY AT BEDTIME NEEDED FOR SLEEP FOR 90 DAYS, Medications (3) Active Scheduled: (2) gabapentin 300 mg Capsule 300 mg 1 cap(s), Oral, PREOP pharm ibuprofen 800 mg 8 mL, IV Piggyback, PREOP pharm Continuous: (1) Lactated Ringers Infusion 1000 mL 1,000 mL, Intravenous, 20 mL/hr PRN: (0) Problem list: Medical Depression with anxiety / SNOMED CT 88768591 / Confirmed Bunion, left / SNOMED CT 9175171349 / Confirmed Burning mouth syndrome / SNOMED CT 3393810142 / Confirmed DDD (degenerative disc disease), lumbar / SNOMED CT 86970773 / Confirmed Depression / SNOMED CT 21422641 / Confirmed Diabetes / SNOMED CT 640899392 / Confirmed Eczema of lower leg / SNOMED CT 1161120612 / Confirmed Fatigue / SNOMED CT 932025659 / Confirmed Genital herpes in women / SNOMED CT 9718714214 / Confirmed Lipoma / SNOMED CT 976014311 / Confirmed Left lumbar radiculopathy / SNOMED CT 818272953 / Confirmed Myalgia / SNOMED CT 076107988 / Confirmed Nausea in adult / SNOMED CT 9592651770 / Confirmed Left knee pain / SNOMED CT 2059308264 / Confirmed Well adult exam / SNOMED CT 058078494 / Confirmed Insomnia / SNOMED CT 4752615 / Confirmed Hypercholesterolemia / SNOMED CT 750832978 / Confirmed Resolved: Acute back pain / SNOMED CT 221945880 Resolved: Dysfunction of left eustachian tube / SNOMED CT 09075562 Resolved: Low back pain / SNOMED CT 139633375 Resolved: Visit for gynecologic examination / SNOMED CT 966199880 Resolved: Spasm of muscle of lower back / SNOMED CT 5213654781 Canceled: Depression / SNOMED CT 09641117 Canceled: Diarrhea / SNOMED CT 197498870 Canceled: Eczema / SNOMED CT 77301206 Canceled: Menopausal state / SNOMED CT 503966128 Canceled: Breast cancer screening / SNOMED CT 484130388 Canceled: Screen for colon cancer / SNOMED CT 961305764, Active Problems (17) Bunion, left Burning mouth syndrome DDD (degenerative disc disease), lumbar Depression Depression with anxiety Diabetes Eczema of lower leg Fatigue Genital herpes in women Hypercholesterolemia Insomnia Left knee pain Left lumbar radiculopathy Lipoma Myalgia Nausea in adult Well adult exam Histories Past Medical History: Resolved Low back pain (152046751): Resolved. Spasm of muscle of lower back (3548105566): Resolved. Acute back pain (438317355): Resolved. Visit for gynecologic examination (348437702): Resolved. Dysfunction of left eustachian tube (82338702): Resolved. Family History: Diabetes mellitus Mother () Grandparent Hypertension Mother () Father () Heart disease Mother () Grandparent Stroke Sister Mental illness Mother () Comments: 11/29/2018 9:06 Steffi Cronin RN ALZHEIMERS Cancer Father () Comments: 11/29/2018 9:06 Steffi Cronin RN LUNG Lung cancer Father () Procedure history: Colonoscopy (953153149) on 11/29/2018 at 58 Years. Comments: 04/13/2024 11:35 MINALT - Tona Corbin section (42805245). section (07753199). Tubal ligation (324081645). Social History: Social & Psychosocial Habits Alcohol 04/28/2024 Use: Current Comment: Rarely - 04/19/2019 14:32 - Radha Jennings LPN Employment/School 04/18/2024 Status: Employed Substance Abuse 04/28/2024 Use: Never Tobacco 04/28/2024 Tobacco Use: Never (less than 100 in l Exercise 04/18/2024 Exercise type: Walking Times per week: 5-6 times/week Home/Environment 04/28/2024 Primary Filler Picker: self 04/28/2024 Lives In Single level home Nutrition/Health 04/28/2024 Caffeine intake amount: None Physical Examination No qualifying data available General: Alert and oriented. Airway: Normal neck range of motion. Mallampati classification: II (soft palate, fauces, uvula visible). Head: Normocephalic. Dentition Evaluation: Intact, Own teeth. Neck: Full range of motion. Respiratory: Lungs are clear to auscultation. Cardiovascular: Normal rate. Heart Sounds: Normal. Gastrointestinal: Soft. Musculoskeletal Normal range of motion. Integumentary: Intact, Warm, Dry. Neurologic: Alert, Oriented. Review / Management Results review: No qualifying data available , Lab results 04/28/2024 9:16 EDT Designated Person #1 We May Share PHI Designated Person #1 We May Share PHI Designated Person #1 Relationship Significant other Designated Person #2 We May Share PHI radha Banks [phone] Designated Person #2 Relationship Daughter Privacy Restrictions Requested None Status Sensory Deficits None Sleep Apnea Snore Yes Sleep Apnea Tired Yes Sleep Apnea Obstruction No Sleep Apnea Pressure No Sleep Apnea BMI No Sleep Apnea Age Yes Sleep Apnea Neck No Sleep Apnea Gender No Sleep Apnea Score 3 Diagnosed With Sleep Apnea No Advanced Directives Yes Advance Directive Type [place] Declaration (Living Will) Advance Directive Location Indicates that Tre[facility] has been given copy Infectious Disease Symptoms Patient states no symptoms Infectious Disease Recent Exposure No Alcohol and Drug Use No Employee of Institutional Living No Health Care Employee No History of Exposure to TB No History of Positive Chest X-Ray for TB No History of Positive TB Skin Test No Homeless No Known Immunosuppression No Recent Immigrant No Resident of Institutional Living No Bloody Sputum No Fatigue No Fever No Loss of Appetite No Night Sweats No Persistent Cough > 3 Weeks No Weight Loss No Patient Aware Date/Time Of Surgery Yes Pre-Op Patient Education NPO after midnight, No makeup, No jewelry, Responsible Libertarian, Aware of surgery location, Pre-op education done, 1 bottle CHG wash with instructions given, No ordered medications, SSI prevention handout given SN - Preprocedure Comments Spoke with patient, Verbalizes/Nonverbally indicates understanding Barriers to Learning None evident Teaching Method Explanation Preferred Spoken Language [place]ese Preferred Written Language [place]ese Teaching Evaluation Verbalizes/Nonverbally indicates understanding Safety Brochure Information Reviewed Yes Trev Welcome Video Viewed No Information Given by Patient Patient's Current Physicians DR. RODGERS - pcp Discharge To, Anticipated Home independently Prev Test Positive/Diagnosis w/COVID-19 No Current Quarantine/Isolated any Illness No Any Contact with Sick Animals/Birds No Traveled Anywhere in Last 30 Days No Lost Weight Unintentionally Recently No Eat Poorly Due to Decreased Appetite No Total MST Score 0 No Personal Devices, Patient Valuables None Anesthesia/Transfusions Prior anesthesia Admission Note-Nursing Same Day Patient History 04/28/2024 9:14 EDT Blood Glucose, Capillary 127 mg/dL HI 04/28/2024 9:10 EDT Urinary Elimination Voiding, no difficulties IV Present Present Allergies Yes Anesthesia Extension Set Applied Yes Contact Centre Supervisor On Yes Consent Form Signed Yes Patient Dressed In Hospital gown, No undergarments CHG Preoperative Wash/Wipe Night before procedure, Day of procedure CHG Skin Prep Completed for Eligible Surgery History & Physical On Chart Yes Obstructive Sleep Apnea Assess Completed Yes Belongings At Bedside Pants, Shirt, Shoes, Socks, Undergarments NPO Status Maintained Allergy Band on and Verified Yes Patient ID Band on and Verified Yes Implants Verified Yes Pacemaker/AICD Verified Yes Site Verified by Patient/Family Yes Blood Consent Signed Yes Last Fluid Intake 04/27/2024 21:00 Last Food Intake 04/27/2024 20:30 04/28/2024 9:08 EDT SN - Preop - CTm Pt in SDS Room 04/28/2024 9:08 . Assessment and Plan [place] Society of Anesthesiologists (ASA) physical status classification: Class II. Anesthetic Preoperative Plan Premedication: intravenous. Anesthetic technique: MAC. Induction: intravenously. Maintenance airway: Mask. Postoperative pain management: Per surgeon. Risks discussed: nausea, vomiting, headache, sore throat, dental injury, hypotension, allergic reaction, serious complications. Informed consent: signed by patient. Digitally Signed by CARL JOHN on 04/28/2024 09:20 AM Digitally Signed by CARL JHON on 04/28/2024 10:46 AM [facility] Evaluation + Plan note Future Appointments Appointment Date:12/21/2023 08:30:00 AM Scheduled Provider:NOLBERTO RODGERS DO Location:[facility] Appointment Type:PC OV Controlled Medication Future Scheduled [id number] Hemoglobin 12/07/23Lipid Profile 12/07/23Albumin/Creatinine Ratio, Random Urine 12/07/23Complete Metabolic Panel 12/07/23XR Knee 3 Views Left 12/08/22 [facility] Evaluation + Plan note Future Appointments Appointment Date:05/16/2024 02:00:00 PM Scheduled Provider:GERI FERNANDO MD Location:[facility] Appointment Type:GS OV Post Op Appointment Date:06/13/2024 11:30:00 AM Scheduled Provider:NOLBERTO RODGERS DO Location:[facility] Appointment Type:PC OV Controlled Medication [facility] Evaluation note No assessment information availa ble [facility] Work Phone: Evaluation note Diagnosis Onset Date Resolution Liver cyst chronic March 27, 2025 1:22pm [facility] Work Phone: Hospital course Narrative No data available for this section [facility] Hospital Discharge instructions No data available for this section [facility] Hospital Discharge instructions Additional Instructions Gallbladder ultrasound with normal gallbladder. No gallstones. You have a 6.8 cm liver cyst on the right side. Labs were normal. Take medications as prescribed. Monitor for any black or bloody stools. Follow-up with Dr. Nixon for your symptoms. Follow-up with your PCP or Dr. Nixon discuss your liver cyst.[facility] Work Phone: Progress note No data available for this section [facility] Reason for referral (narrative)No reason for referral information [facility] Work Phone: Chief Complaint and Reason for Visit Chief Complaint SCREENING Chief Complaint Encounter for screen ing, unspecified Chief Complaint Admit Date ABD CRAMPING March 13, 2025 6:45p m Chief Complaint Admit Date ABD CRAMPING March 13, 2025 6:45p m hepatic cyst epigastric pain March 27 025 1:22pm Reason for Visit Admit Date Liver cyst March 27, 2025 1:22p m Advance Directives No Advanced Directives Records Found Advance Directive Response Recorded Date/ Time Living Will No August 29 015 5:07am Power of National [employer]el[employer] Analyst No August 29, 2015 5:07am Advance Directive Response Recorded Date/ Time Living Will No August 29, 2 015 4:07am Power of National [employer] Analyst No August 29, 2015 4:07am Advance Directive Response Recorded Date/ Time Do you have a Healthcare Power of National [employer] Analyst? Yes March 13, 2025 7:32pm Summary Purpose Family History Relationship Condition Age at Onset Recorded Date/T jesi mother Diabetes mellitus Unknown Cardiac disease Unknown Chronic mental illness Unknown father Hypertension Unknown Malignant neoplasm of lung Unknown sister Transient ischemic attack Unknown No Family History Records Found Additional Source Comments Goals (unrecognized section and content) Goals may be documented in a n alternate sectionGoals may be documented in an alternate sectionGoals may be documented in an alternate section No data available for this sectionGoals may be documented in an alternate section No data available for this section No data available for this sectionGoals may be documented in an alternate sectionGoals may be documented in an alternate section Care Teams (unrecognized sec tion and content) Team Status: Active Member Role Status Dates Dr. Nolberto Rodgers DO Family Provider Active Dr. Nolberto Rodgers DO Primary Care Provider Active Team Status: Inactive Member Role Status Dates Dr. Nolberto Rodgers DO Primary Care Provider, Attendi ng Provider Active Team Status: Inactive Member Role Status Dates Dr. Nolberto Rodgers DO Primary Care Pro vider, Attending Provider, Referring Provider Active Team Status: Active Member Role Status Dates KANDIS WARRENC Primary Care Provider Active Team Status: Inactive Member Role Status Dates Dr. Atilio Sandoval DO Emergency Provider Active Start : March 13, 2025 End: March 13, 2025 KANDIS WARRENC Primary Care Provider Active Start: March 13, 2025 End: March 13, 2025 Team Status: Inactive Member Role Status Dates Dr. Atilio Sandoval DO Attending Provider Active Start : March 13, 2025 End: March 13, 2025 Dr. Atilio Sandoval DO Emergency Provider Active Start : March 13, 2025 End: March 13, 2025 JOSE PATEL STUDENT DRIVING INSTRUCTOR-C Primary Care Provider Active Start: March 13, 2025 End: March 13, 2025 Team Status: Inactive Member Role Status Dates KANDIS WARRENC Primary Care Provider Active Start: March 27, 2025 End: March 27, 2025 ARY WARREN Referring Provider Active Start: March 27, 2025 End: March 27, 2025 Dr. Nima Jones MD Attending Provider Active Start: March 27, 2025 End: March 27, 2025 INFORMATION SOURCE (unrecogn ized section and content) DATE CREATED AUTHOR 05/07/2024 [facility] ([place]) DATE CREATED AUTHOR AUTHOR'S ORGANIZ ATION 04/15/2025 [facility] FOR RECORDS PERTAINING TO PATIENTS WHO ARE OR HAVE BEEN ENROLLED IN A CHEMICAL DEPENDENCY/SUBSTANCEABUSE PROGRAM, SOME INFORMATION MAY BE OMITTED. This clinical summary was aggregated from multiple sources. Caution should be exercised in using it in the provision of clinical care. This summary normalizes information from multiple sources, and as a consequence, information in this document may materially change the coding, format and clinical context of patient data. In addition, data may be omitted in some cases. CLINICAL DECISIONS SHOULD BE BASED ON THE PRIMARY CLINICAL RECORDS. [employer] provides no warranty or guarantee of the accuracy or completeness of information in this document.
--- NOTE | 2025-04-17 07:16 | PCM.HP.STD ---
HPI - General General Date of Admission: 04/17/25 Date of Service: 04/17/25 Chief Complaint: Abdominal pain and abnormal weight loss HPI Narrative ADORE SAAVEDRA, is a 64 F who presents for evaluation of epigastric pain. Pt seen at [facility] ER 03/13 for upper abdominal pain. US of gallbladder showed a cyst with septation in the right lobe of the liver measuring 61 x 68 x 76 mm. Pt states for the last few months has had postprandial abdominal pain. Is relieved by OTC Tums and Zofran. Does okay if she follows a BRAT diet. BMs are normal once daily. Abdominal pain: Complain of mild to moderate, 5/10 intensity intermittent mainly after meet for last 2 to 3 months. It is usually upper abdominal right TO left quadrant. Currently she is eating banana and toast and has lost about 8 pounds in 2 to 3 months. She went to ED on 03/13/26 when she felt nauseous otherwise no significant associated symptoms. No fever. No vomiting. No GI bleed. Family history: Her maternal aunt had liver cancer unclear whether primary or secondary. Her mother has breast cancer. Denies personal or family history of autoimmune disease related to liver pancreas, thyroid, adrenal or pituitary, UC, CAD or celiac disease. [facility] Medical History Wears glasses Arthritis High cholesterol Dietary restriction Gastric reflux Non-smoker Hypertension Myalgia Genital herpes in women Depression with anxiety DDD (degenerative disc disease), lumbar Diabetes mellitus Home Medications ?Medication ?Instructions ?Recorded ?Last Taken ?Type Buspirone Hcl 7.5 mg PO BID 08/29/15 Unknown History citalopram 20 mg tablet 20 mg PO DAILY 08/29/15 04/17/25 History atorvastatin 20 mg tablet 20 mg PO QHS 03/13/25 Unknown History lisinopril 2.5 mg tablet 2.5 mg PO DAILY 03/13/25 Unknown History metformin 500 mg tablet,extended 2,000 mg PO DAILY 03/13/25 04/17/25 History release 24 hr ondansetron 4 mg disintegrating 4 mg PO Q8H PRN PRN Nausea #10 tabs 03/13/25 Unknown Rx tablet zolpidem 10 mg tablet 10 mg PO QHS PRN PRN insomnia 03/13/25 Unknown History baclofen 5 mg tablet 5 mg PO TID PRN pain 03/23/25 Unknown History pantoprazole 40 mg tablet,delayed 40 mg PO BID 1 month #60 tabs 03/27/25 04/17/25 Rx release sucralfate 1 gram tablet (Carafate) 1 g PO .TIDAC 1 month #90 tabs 03/27/25 Unknown Rx Allergy/AdvReac Type Severity Reaction Status Date / Time Penicillins (PCN) Allergy Abd Verified 04/17/25 07:05 cramps/diarrhea Sulfa (Sulfonamide Allergy Hives Verified 04/17/25 07:05 Antibiotics) Family History Mother Diabetes Heart disease Chronic mental illness Father Hypertension Lung cancer Sister TIA (transient ischemic attack) Surgical History Hx of oral surgery Hx of colonoscopy H/O tubal ligation H/O section Social History Smoking Status: Never smoker alcohol intake: current ROS Constitutional Constitutional: Denies fatigue, fever(s), poor appetite, weight gain or weight loss Gastrointestinal Gastrointestinal: Denies belching, bloating, change in bowel habits, change in stool character, chewing difficulty, coffee ground emesis, constipation, cramping, diarrhea, dyspepsia, dysphagia, early satiety, excessive flatus, fecal incontinence, heartburn, hematemesis, hematochezia, hemorrhoids, loose stools, melena, nausea, odynophagia, rectal bleeding, tenesmus, vomiting or weight changes Vital Signs Vital Signs Vital Signs: 04/17/25 07:07 04/17/25 07:07 Temperature 98.8 F Temperature Source Temporal Pulse Rate 59 L Respiratory Rate 16 Respiratory Pattern Normal Blood Pressure 132/65 H Blood Pressure Mean 87 Blood Pressure Source Monitor Blood Pressure Position Semi-Fowlers Blood Pressure Location Left Arm Pulse Ox 97 Oxygen Delivery Method Room Air Weight Weight: 134 lb 7.712 oz Body Mass Index (BMI) 26.2 Physical Exam Const alert, oriented x3, no apparent distress and healthy appearing General Appearance: cooperative GI normal to inspection, nondistended, normoactive bowel sounds, soft to palpation, non-tender and non-distended Percussion: normal to percussion Rectal Exam: deferred Assessment & Plan Assessment/Plan (1) Abnormal weight loss: (2) Epigastric pain: PLAN: Assessment and Plan Assessment and Plan (1) Liver cyst: Status: Chronic Plan: Liver ultrasound shows normal appearance with no evidence of IHBD. No gallstones or pericholecystic fluid. Pancreas and right kidney unremarkable. Cyst with septation in the right lobe of liver reported 61 x 68 x 76 mm. Patient denies recent immigration or long stay in [place] or risk factor for MVA VSS. Differential diagnosis of liver cyst discussed. Patient does not have fever and single cyst therefore pyogenic unlikely. Triple phase CT scan abdomen/pelvis ordered to rule out HCC. Serum AFP ordered. Serum and stool EIA for Entamoeba histolytica ordered Liver chemistry normal limit, normal albumin and protein Follow-up in [address] abdomen shows no cancer we will call early to schedule if concern for HCC (2) Abnormal weight loss: Status: Acute Plan: Patient concerned of losing weight 8 pounds in 2 to 3 weeks. Probably not due to eating as mentioned in HPI. Never had EGD. First colonoscopy showed large polyp was removed and second after couple months. Last colonoscopy 3 years ago and no significant abnormality reported by Dr. Weeks. No official colonoscopy report available to review Pantoprazole increased to 40 mg twice daily and Carafate 1 g 3 times daily AC, prescription given. Schedule EGD
[2025-04-17] MEDS: Lactated Ringers 1,000 ML 15 ML IV (07:19)
--- NOTE | 2025-04-17 07:22 | PRE.ANES_ITS ---
ASA Classification* ASA Classification ASA Classification: 2 Assessment & Plan Anesthesia* Anesthesia Assessment Anesthesia Assessment: Discussed sedation and/or anesthesia options, risks, benefits, and alternatives with patient/parents/legal guardian/POA. Questions invited. The patient/parents/legal guardian/POA seems to understand and agrees to proceed with anesthesia plan. Reviewed the physical assessment, medical history, allergy history and patient home medications list prior to surgery/procedure/anesthetic and documented any changes. Performed airway and anesthesia risk assessments. Anesthesia Type Anesthesia Type: MAC History Source History Obtained from:: Patient and Chart Anesthesia Focused Assessment* Temperature: 98.8 F Pulse Rate: 59 Blood Pressure: 132/65 Respiratory Rate: 16 Pulse Ox: 97 Oxygen Delivery Method: Room Air Airway Assessment Mouth opens: >3 cm Mallampati Score: IV Teeth Condition: Missing (Patient has several missing teeth. Rest are tight) and Implants (Patient has the PEG for future implant.) Labs Anesthesia Preop lab: CBC WBC 9.7 K/mm3 (4.4-11.0) 03/13/25 19:20 03/13/25 RBC 4.58 M/mm3 (4.2-5.4) 03/13/25 19:20 03/13/25 Hgb 12.6 g/dL (12.0-15.0) 03/13/25 19:20 03/13/25 Hct 38.3 % (37-47) 03/13/25 19:20 03/13/25 Plt Count 263 K/mm3 (150-450) 03/13/25 19:20 03/13/25 CHEMISTRY Potassium 3.9 mmol/L (3.3-5.1) 03/13/25 19:20 03/13/25 Sodium 139 mmol/L (133-145) 03/13/25 19:20 03/13/25 BUN 17 mg/dL (4-19) 03/13/25 19:20 03/13/25 Creatinine 0.88 mg/dL (0.70-1.20) 03/13/25 19:20 03/13/25 Glucose 144 mg/dL (70-99) H 03/13/25 19:20 03/13/25 COAG Pre-Assessment Diagnosis/Proposed Procedure Planned Operative Procedure(s): EGD Anesthesia History 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 When Was Last Pacemaker Check QUESTION #4 FULL TEXT: You/Your Family Experience fever (hyperthermia) with Anesthesia Last Oral Intake Last Oral intake: Last Oral Intake NPO since 05:30 04/17/25 07:07 Meds taken in AM with sips of Yes 04/17/25 07:07 water? Meds patient instructed to take am of surgery Any additional information?: Yes NPO since: 05:30 (Sips of water to take a.m. 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 Female Yes 04/14/25 12:15 HX of Motion Sickness No 04/14/25 12:15 HX of N/V After Surgery No 04/14/25 12:15 Non-Smoker Yes 04/14/25 12:15 Duration of Surgery greater No 04/14/25 12:15 than 60 minutes Number of Risk Factors 2 04/14/25 12:15 PONV Score Moderate Risk 04/14/25 12:15 Height & Weight Height & Weight: Anesthesia: Height & Weight Height 5 ft 04/17/25 07:07 Weight: 61 kg 04/17/25 07:07 Body Mass Index (BMI) 26.2 04/17/25 07:07 Respiratory Assessment Respiratory Assessment - crop and soil technician: Respiratory Tract Infection Hx - crop and soil technician Hx Respiratory Tract Infection No 04/14/25 12:15 STOP Sleep Apnea STOP Sleep Apnea - crop and soil technician: STOP Sleep Apnea - crop and soil technician Hx Hypertension Yes: CONTROLLED WITH MED 04/14/25 12:15 Hx Sleep Apnea No 04/14/25 12:15 CPAP BIPAP Do you snore loudly (louder Yes 04/14/25 12:15 than talking or can be heard Do you often feel tired/ No 04/14/25 12:15 fatigued/ sleepy during daytime? Has anyone observed you stop No 04/14/25 12:15 breathing during sleep? STOP Results Positive 04/14/25 12:15 QUESTION #5 FULL TEXT : Do you snore loudly (louder than talking or can be heard through closed doors)? 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 Specify any problems Hx of Preganancy in last 3 No 04/14/25 12:15 Months Nurse Filling Out Transfusion DSCHRIBER 04/14/25 12:15 & Questions: Date: 04/14/25 04/14/25 12:15 Time: 12:17 04/14/25 12:15 Patient unable to answer at this time (ie. confused, unrespo /Reproduction History /Reproductive History - crop and soil technician: /Reproductive Hx- crop and soil technician Hx Now No 04/14/25 12:15 Gestational Age (in weeks): EDC: Hx Hx Para Hx Section SAB No 04/14/25 12:15 Active Medications Active Medications: Current Medications Generic Name Dose Route Start Last Admin Trade Name Freq PRN Reason Stop Dose Admin Lactated Ringer's 1,000 mls @ 15 mls/hr 04/17/25 07:00 04/17/25 07:19 IV 15 mls/hr .Q48H JOSELUIS Administration PFSH Medical History Wears glasses Arthritis High cholesterol Dietary restriction Gastric reflux Non-smoker Hypertension Myalgia Genital herpes in women Depression with anxiety DDD (degenerative disc disease), lumbar Diabetes mellitus Home Medications ?Medication ?Instructions ?Recorded ?Last Taken ?Type Buspirone Hcl 7.5 mg PO BID 08/29/15 Unkno wn History citalopram 20 mg tablet 20 mg PO DAILY 08/29/1503/21 History atorvastatin 20 mg tablet 20 mg PO QHS 03/13/25 Unknow n History lisinopril 2.5 mg tablet 2.5 mg PO DAILY 03/13/25 Unk nown History metformin 500 mg tablet,extended 2,000 mg PO DAILY 04/17/25 History release 24 hr ondansetron 4 mg disintegrating 4 mg PO Q8H PRN PRN Na usea #10 tabs 03/13/25 Unknown Rx tablet zolpidem 10 mg tablet 10 mg PO QHS PRN PRN insomni a 03/13/25 Unknown History baclofen 5 mg tablet 5 mg PO TID PRN pain 5 Unknown History pantoprazole 40 mg tablet,delayed 40 mg PO BID 1 month #60 tabs 03/27/25 04/17/25 Rx release sucralfate 1 gram tablet (Carafate) 1 g PO .TIDAC 1 mo nth #90 tabs 03/27/25 Unknown Rx Allergy/AdvReac Type Severity Reaction Status Date / Time Penicillins (PCN) Allergy Abd Verified 04/17/25 07:05 cramps/diarrhea Sulfa (Sulfonamide Allergy Hives Verified 04/17/25 07:05 Antibiotics) Family History Mother Diabetes Heart disease Chronic mental illness Father Hypertension Lung cancer Sister TIA (transient ischemic attack) Surgical History Hx of oral surgery Hx of colonoscopy H/O tubal ligation H/O section Social History Smoking Status: Never smoker alcohol intake: current Review of Systems (Anesthesia) ROS Narrative System reviewed and no additional complaints, except as documented.
--- NOTE | 2025-04-17 07:30 | EGD_PTH ---
PATIENT: ADORE SAAVEDRA LOC: EN U#:[id number] AGE/SX: 64/F ROOM: RE04/17/[address]: Dr. Pedro Zendejas DO : 1960 BED: DIS: 04/17/2025 SPEC #: [id number] RECD: 04/17/25 11:17 STATUS: CARMELA REClaritza #: [id number] MAUREEN: 04/17/25 07:[address]: Pedro Zendejas DEPT: SURGICAL PATHOLOGY RECD BY: Duglas Vail ENTERED: 04/17/25 13:58 SP TYPE: EGD BIOPSY OT DR: JOSE PATEL, ARY Tissues: A - Esophagus, NOS Procedures: Surgery Specimen Level IV HEADER OPERATION: EGD with biopsy PRE-OP DIAGNOSIS: Liver cyst, abdominal pain, abnormal weight loss TISSUE SUBMITTED: A- Distal esophagus biopsy MICROSCOPIC DIAGNOSIS A. Distal esophagus, biopsy: - Squamous and columnar mucosa with reactive changes. - Negative for goblet cell metaplasia. MICROSCOPIC DESCRIPTION Slides are reviewed. GROSS DESCRIPTION A. Received in fixative is one container labeled with the patient's name and designated Distal esophagus biopsy. The specimen consists of two irregular fragments of light machado soft tissue that in aggregate measure 0.6 and 0.7 cm. The specimen is totally submitted in one cassette. SHAJI/ 04/17/2025 CPT:68105
--- NOTE | 2025-04-17 08:12 | OP.CCLET_ITS ---
04/17/2025 Taniya Yeh Re : Upper GI endoscopy procedure for Ursula Kay Dear Lisandra This procedure was performed on Thursday, April 17, 2025. My impressions and recommendations are as follows: Impressions : - Z-line irregular, 38 cm from the incisors. Biopsied. - Gastroparesis. - A large amount of food (residue) in the stomach. - No gross lesions in the entire examined duodenum. Recommendations : - Discharge patient to home. - Resume previous diet. - Continue present medications. - Await pathology results. - Repeat upper endoscopy to assess disease activity. My findings are described in the full procedure note, which is enclosed. If I can be of further assistance, please feel free to contact me at . Sincerely, Pedro Zendejas, 04/17/2025 8:12:19 AM This report has been signed electronically.
--- NOTE | 2025-04-17 08:12 | OP.EGD_ITS ---
Patient Name: Ursula Kay Procedure Date: 04/17/2025 7:54 AM Date of : 1960 Age: 64 Procedure: Upper GI endoscopy Indications: Epigastric abdominal pain, Functional Dyspepsia, Indigestion Providers: Pedro Zendejas DO Referring MD: Taniya Yeh Medicines: Monitored Anesthesia Care Patient Profile: This is a 64 year old female. Refer to note in patient chart for documentation of history and physical. Patient has symptoms of acute abdominal distention, chronic right upper quadrant abdominal pain and acute epigastric abdominal pain. Complications: No immediate complications. Procedure: Pre-Anesthesia Assessment: - Prior to the procedure, a History and Physical was performed, and patient medications and allergies were reviewed. The patient is competent. The risks and benefits of the procedure and the sedation options and risks were discussed with the patient. All questions were answered and informed consent was obtained. Patient identification and proposed procedure were verified by the physician in the pre-procedure area. Mental Status Examination: alert and oriented. Airway Examination: normal oropharyngeal airway and neck mobility. Respiratory Examination: clear to auscultation. CV Examination: normal. Prophylactic Antibiotics: The patient does not require prophylactic antibiotics. Prior Anticoagulants: The patient has taken no anticoagulant or antiplatelet agents except for NSAID medication. ASA Grade Assessment: II - A patient with mild systemic disease. After reviewing the risks and benefits, the patient was deemed in satisfactory condition to undergo the procedure. The anesthesia plan was to use monitored anesthesia care (MAC). Immediately prior to administration of medications, the patient was re-assessed for adequacy to receive sedatives. The heart rate, respiratory rate, oxygen saturations, blood pressure, adequacy of pulmonary ventilation, and response to care were monitored throughout the procedure. The physical status of the patient was re-assessed after the procedure. After obtaining informed consent, the endoscope was passed under direct vision. Throughout the procedure, the patient's blood pressure, pulse, and oxygen saturations were monitored continuously. The gastroscope was introduced through the mouth, and advanced to the third part of the duodenum. Small bowel enteroscopy was deemed necessary. The upper GI endoscopy was accomplished without difficulty. The patient tolerated the procedure well. Scope In: 8:05:07 AM Scope Out: 8:07:31 AM Total Procedure Duration Time 0 hours 2 minutes 24 seconds Findings: The Z-line was irregular and was found 38 cm from the incisors. Biopsies were taken with a cold forceps for histology. Verification of patient identification for the specimen was done. Estimated blood loss was minimal. Suspect gastroparesis due to absence of peristalsis, patient symptoms and retained gastric contents. A large amount of food (residue) was found in the entire examined stomach. No gross lesions were noted in the entire examined duodenum. Impression: - Z-line irregular, 38 cm from the incisors. Biopsied. - Gastroparesis. - A large amount of food (residue) in the stomach. - No gross lesions in the entire examined duodenum. Recommendation: - Discharge patient to home. - Resume previous diet. - Continue present medications. - Await pathology results. - Repeat upper endoscopy to assess disease activity. Procedure Code(s): --- Professional --- 13431, Small intestinal endoscopy, enteroscopy beyond second portion of duodenum, not including ileum; with biopsy, single or multiple CPT copyright 2021 [employer]. All rights reserved. The codes documented in this report are preliminary and upon outpatient coder review may be revised to meet current compliance requirements. Pedro Zendejas DO 04/17/2025 8:12:19 AM This report has been signed electronically. Number of Addenda: 0 Note Initiated On: 04/17/2025 7:54 AM
--- NOTE | 2025-04-17 08:17 | PCM.POST.ANE ---
Anesthesia: Postop Eval I Current Vital Signs Temperature: 97.4 F Pulse Rate: 71 Blood Pressure: 121/83 Respiratory Rate: 14 Pulse Ox: 92 Assessment Airway patent: Yes Spontaneous unlabored respirations: Yes nausea: No Vomiting: No Anesthesia Complication: No Fluid Hydration Crystalloid volume administer (ml): 200 Total IV fluid infused: 200 Progress Note Anesthesia document: Postop Eval 1 completed: Yes
[2025-04-17 08:19] LABS: Bedside Glucose 98 mg/dL (74-106)
--- NOTE | 2025-04-17 10:43 | POSTOPAN2_ITS ---
Anesthesia Postop Eval I Sum Postop Eval Completion status Anesthesia document: Postop Eval 1 completed: Yes Anesthesia Postop Eval I Summary Anesthesia Postop Eval I Summary: Anesthesia Postop Eval I: Assessment Summary Airway patent Yes 04/17/25 08:17 [email or web address] Spontaneous unlabored Yes 04/17/25 08:17 [email or web address] respirations Mental status nausea No 04/17/25 08:17 [email or web address] Vomiting No 04/17/25 08:17 [email or web address] Anesthesia Postop Eval I: Fluid Summary Crystalloid volume administer 200 04/17/25 08:17 [email or web address] (ml) Colloids volume administered ( ml) Blood Product volume administered (ml) Total IV fluid infused 200 04/17/25 08:17 [email or web address] Anesthesia Postop Eval I: Summary Notes Anesthesia Complication No 04/17/25 08:17 [email or web address] Anesthesia Complication Comment: Post-operative progress note Anesthesia: Postop Eval II Evaluation Mental status: Awake Pain Level: 0 nausea: No Vomiting: No
--- NOTE | 2025-04-17 10:43 | PCM.POSTANE2 ---
Anesthesia Postop Eval I Sum Postop Eval Completion status Anesthesia document: Postop Eval 1 completed: Yes Anesthesia Postop Eval I Summary Anesthesia Postop Eval I Summary: Anesthesia Postop Eval I: Assessment Summary Airway patent Yes 04/17/25 08:17 [email or web address] Spontaneous unlabored Yes 04/17/25 08:17 [email or web address] respirations Mental status nausea No 04/17/25 08:17 [email or web address] Vomiting No 04/17/25 08:17 [email or web address] Anesthesia Postop Eval I: Fluid Summary Crystalloid volume administer 200 04/17/25 08:17 [email or web address] (ml) Colloids volume administered ( ml) Blood Product volume administered (ml) Total IV fluid infused 200 04/17/25 08:17 [email or web address] Anesthesia Postop Eval I: Summary Notes Anesthesia Complication No 04/17/25 08:17 [email or web address] Anesthesia Complication Comment: Post-operative progress note Anesthesia: Postop Eval II Evaluation Mental status: Awake Pain Level: 0 nausea: No Vomiting: No
== END 2025-04-17 09:21 | disposition home or self-care (01) ==
LOC: EN 06:38 → AC 06:41
PROVIDERS: PCP Nurse Practitioner Family; Referring Provider Nurse Practitioner Family; Visit Provider Internal Medicine Gastroenterology
PROC: 0DJ08ZZ Inspection of Upper Intestinal Tract, Via Natural or Artificial Opening Endoscopic (ICD-10-PCS; CPT 43235; principal; 2025-04-17 07:25)
DX: E11.43 Type 2 diabetes mellitus with diabetic autonomic (poly)neuropathy (principal); K76.89 Other specified diseases of liver; I10 Essential (primary) hypertension; E78.00 Pure hypercholesterolemia, unspecified; K21.9 Gastro-esophageal reflux disease without esophagitis; R10.13 Epigastric pain; R63.4 Abnormal weight loss; Z79.899 Other long term (current) drug therapy; Z79.84 Long term (current) use of oral hypoglycemic drugs
CPT/HCPCS: 43239; 82962; 88305

== ENCOUNTER → 2025-04-20 | Outpatient (CLI) | payer MEDICARE, SELFPAY ==
[2025-04-20 18:14] LABS: CREATININE FINGERSTICK < 1.0 mg/dL (0.55-1.02); EGFR FINGERSTICK > 60.0000 mL/min (>60)
== END | disposition home or self-care (01) ==
LOC: CT 17:50
PROVIDERS: PCP Nurse Practitioner Family; Referring Provider Internal Medicine; Visit Provider Internal Medicine
DX: Z01.812 Encounter for preprocedural laboratory examination (principal); K76.89 Other specified diseases of liver
CPT/HCPCS: 74178; Q9967

== ENCOUNTER → 2025-05-29 | Outpatient (CLI) | payer MEDICARE, SELFPAY ==
--- NOTE | 2025-05-29 11:16 | NM_ITS ---
PROCEDURE: GASTRIC EMPTYING STUDY 05/29/2025 REASON FOR EXAM: FOOD RESIDUE IN STOMACH, BEZOAR COMPARISON: Prior CT scan of the abdomen pelvis dated April 20, 2025. TECHNIQUE: The patient ingested a standard meal of oatmeal, sulfur colloid, and water. There was no vomiting postprandially. Anterior and posterior planar images of the upper abdomen were obtained for 1 minute immediately following the meal at 1h, 2h and 4h if more than 10% of the activity persisted within the stomach. Regions of interest were drawn, and a geometric mean was used to calculate a [id number]. RADIOPHARMACEUTICAL: Sulfur colloid DOSE 1mCi FINDINGS: Percent activity remaining in stomach: 1 hour 38 % (normal 37-90%) NM/Gastric Emptying Study IMPRESSION: Normal gastric emptying examination. Reading Location: [place] [id number]
== END | disposition home or self-care (01) ==
LOC: NM 11:15
PROVIDERS: PCP Nurse Practitioner Family; Referring Provider Internal Medicine; Visit Provider Internal Medicine
DX: K31.84 Gastroparesis (principal)
CPT/HCPCS: 78264; A9541

== ENCOUNTER → 2025-07-03 | Outpatient (CLI) | payer MEDICARE, SELFPAY ==
--- NOTE | 2025-07-03 10:44 | NM_ITS ---
PROCEDURE: HEPATOBILLIARY IMG W/PHARM INT 07/03/2025 REASON FOR EXAM: EPIGASTRIC PAIN TECHNIQUE: Procedure Code: [id number] Modality: NM Procedure: HEPATOBILLIARY IMG W/PHARM INT Intravenous Choletec with planar imaging of the abdomen. 1.2 mcg Kinevac intravenously approximately 60 minutes after the radiopharmaceutical with additional anterior imaging and a region of interest drawn around the gallbladder to calculate a time-activity curve. RADIOPHARMACEUTICAL: Mebrofenin DOSE 5.8mCi COMPARISON: Prior CT scan of the abdomen and pelvis dated April 20, 2025. FINDINGS: There is good uptake of the radiopharmaceutical by the liver. A well-defined rounded area of photopenia is seen in the dome of the right lobe of the liver. This corresponds with the CT finding of the large right hepatic cyst. Normal gallbladder visualization with the gallbladder identified by 30 minutes. Gallbladder Ejection Fraction: 59 % (Normal is >35%) NM/Hepatobilliary Img w/Pharm Int IMPRESSION: Normal gallbladder ejection fraction. Focal photopenic area in the dome of the right lobe of the liver as described i n keeping with the patient's history of a known right hepatic cyst. Reading Location: [place] [id number]
== END | disposition home or self-care (01) ==
PROVIDERS: PCP Nurse Practitioner Family; Referring Provider Student in an Organized Health Care Education/Training Program; Visit Provider Student in an Organized Health Care Education/Training Program
DX: R10.13 Epigastric pain (principal)
CPT/HCPCS: 78227; A9537; J2805

== ENCOUNTER 2025-09-06 07:41 | Day surgery (SDC) | payer MEDICARE, SELFPAY ==
[2025-09-06] VITALS (8 sets, daily range): BP systolic 92–134; BP diastolic 58–74; PULSE 71–84; RESP 16; TEMP 36.3–36.4; O2SAT 91–97; BMI 27.1
--- NOTE | 2025-09-06 08:10 | PCM.HP.STD ---
HPI - General General Date of Admission: 09/06/25 Date of Service: 09/06/25 Chief Complaint: Abdominal pain and gastroparesis HPI Narrative URSULA SAAVEDRA, is a 65 F who presents [ Chief Complaint: Epigastric pain OV 6.9.25 PCP referred for hepatic cyst and epigastric pain. Pt seen at [facility] ER 03/13 for upper abdominal pain. US of gallbladder showed a cyst with septation in the right lobe of the liver measuring 61 x 68 x 76 mm. Pt states for the last few months has had postprandial abdominal pain. Is relieved by OTC Tums and Zofran. Does okay if she follows a BRAT diet. BMs are normal once daily. EGD 6.30.25- Gastroparesis, Large amount of food residue in the stomach. OV 7.7.25- Pt reports she is eating better since last visit. Has not has had much abdominal pain. Occasional nausea. BMs normal. Here to discuss test results. Had EGD in March 2025 GES 8.11.25 normal OV 8.27.25 patient with continued epigastric pain after eating. It is not related to certain foods. She denies nausea, vomiting, constipation or diarrhea. [facility] Medical History Wears glasses Arthritis High cholesterol Dietary restriction Gastric reflux Non-smoker Hypertension Myalgia Genital herpes in women Depression with anxiety DDD (degenerative disc disease), lumbar Diabetes mellitus Home Medications ?Medication ?Instructions ?Recorded ?Last Taken ?Type citalopram 20 mg tablet 20 mg PO DAILY 08/29/15 04/17/25 History atorvastatin 20 mg tablet 20 mg PO QHS 03/13/25 Unknown History lisinopril 2.5 mg tablet 2.5 mg PO DAILY 03/13/25 Unknown History metformin 500 mg tablet,extended 1,000 mg PO BID 03/13/25 04/17/25 History release 24 hr ondansetron 4 mg disintegrating 4 mg PO Q8H PRN PRN Nausea #10 tabs 03/13/25 Unknown Rx tablet zolpidem 10 mg tablet 10 mg PO QHS PRN PRN insomnia 03/13/25 Unknown History baclofen 5 mg tablet 5 mg PO TID PRN pain 03/23/25 Unknown History pantoprazole 40 mg tablet,delayed 40 mg PO DAILY 1 month #30 tabs 04/24/25 Unknown Rx release buspirone 15 mg tablet 15 mg PO BID 08/31/25 Unknown History sucralfate 1 gram tablet 1 g PO BID PRN stomach upset 08/31/25 Unknown History Allergy/AdvReac Type Severity Reaction Status Date / Time Penicillins (PCN) Allergy Abd Verified 08/31/25 15:18 cramps/diarrhea Sulfa (Sulfonamide Allergy Hives Verified 08/31/25 15:18 Antibiotics) Family History Mother Diabetes Heart disease Chronic mental illness Father Hypertension Lung cancer Sister TIA (transient ischemic attack) Surgical History Hx of oral surgery Hx of colonoscopy H/O tubal ligation H/O section Social History Smoking Status: Never smoker alcohol intake: current ROS Constitutional Constitutional: Denies fatigue, fever(s), poor appetite, weight gain or weight loss Gastrointestinal Gastrointestinal: Denies belching, bloating, change in bowel habits, change in stool character, chewing difficulty, coffee ground emesis, constipation, cramping, diarrhea, dyspepsia, dysphagia, early satiety, excessive flatus, fecal incontinence, heartburn, hematemesis, hematochezia, hemorrhoids, loose stools, melena, nausea, odynophagia, rectal bleeding, tenesmus, vomiting or weight changes Physical Exam Const alert, oriented x3, no apparent distress and healthy appearing General Appearance: cooperative GI normal to inspection, nondistended, normoactive bowel sounds, soft to palpation, non-tender and non-distended Percussion: normal to percussion Rectal Exam: deferred Assessment & Plan Assessment/Plan (1) Gastroparesis: (2) Epigastric pain: (3) Abnormal weight loss: PLAN: Assessment and Plan Assessment and Plan (1) Epigastric pain: Status: Acute Plan: Ursula is a 64-year-old female patient here today for follow-up regarding her epigastric pain. Patient having epigastric pain since February 2025. Patient was seen in the ED with workup largely unremarkable besides a septated hepatic cyst. Patient established with Dr. Robert here who is monitoring her liver cyst. She underwent EGD which showed food in the stomach suspicious for gastroparesis. Gastric emptying study was with normal emptying. Recommend repeating the EGD at this time as her stomach was unable to be evaluated during her last endoscopy. Patient will eat soft foods the day prior to ensure there is no food still in the stomach. I have also ordered a HIDA scan to rule out biliary dyskinesia. Gallbladder did look normal on ultrasound. In the meantime she will continue pantoprazole 40 mg daily and I have started her on another course of Carafate which was helpful to her in the past. - Repeat EGD - Continue pantoprazole - Start Carafate 1 g twice daily for 2 weeks - HIDA scan - Follow-up after testing - Follow-up with Dr. Vera regarding liver cyst Orders: Orders Hepatobilliary Img w/Pharm Int Today R10.13 - Epigastric pain Medications: New sucralfate 1 g PO BID 30 tabs 1RF ]
[2025-09-06] MEDS: Lactated Ringers 1,000 ML 15 ML IV (08:22)
--- NOTE | 2025-09-06 08:40 | PRE.ANES_ITS ---
ASA Classification* ASA Classification ASA Classification: 2 Assessment & Plan Anesthesia* Anesthesia Assessment Anesthesia Assessment: Discussed sedation and/or anesthesia options, risks, benefits, and alternatives with patient/parents/legal guardian/POA. Questions invited. The patient/parents/legal guardian/POA seems to understand and agrees to proceed with anesthesia plan. Reviewed the physical assessment, medical history, allergy history and patient home medications list prior to surgery/procedure/anesthetic and documented any changes. Performed airway and anesthesia risk assessments. Anesthesia Type Anesthesia Type: MAC History Source History Obtained from:: Patient and Chart Anesthesia Focused Assessment* Temperature: 97.6 F Pulse Rate: 84 Blood Pressure: 134/74 Respiratory Rate: 16 Pulse Ox: 97 Oxygen Delivery Method: Room Air Airway Assessment Mouth opens: >3 cm Mallampati Score: III Teeth Condition: Caps/Crowns (Patient has a crown. It is tight.) Neck Range of motion (ROM): Full ROM Labs Anesthesia Preop lab: CBC WBC, (4.4-11.0) 9.7 K/mm3 03/13/25, 19:20 RBC, (4.2-5.4) 4.58 M/mm3 03/13/25, 19:20 Hgb, (12.0-15.0) 12.6 g/dL 03/13/25, 19:20 Hct, (37-47) 38.3 % 03/13/25, 19:20 Plt Count, (150-450) 263 K/mm3 03/13/25, 19:20 CHEMISTRY Potassium, (3.3-5.1) 3.9 mmol/L 03/13/25, 19:20 Sodium, (133-145) 139 mmol/L 03/13/25, 19:20 BUN, (4-19) 17 mg/dL 03/13/25, 19:20 Creatinine, (0.70-1.20) 0.88 mg/dL 03/13/25, 19:20 Glucose, (70-99) 144 mg/dL H 03/13/25, 19:20 POC Glucose, (74-106) 98 mg/dL 04/17/25, 07:23 COAG Pre-Assessment Diagnosis/Proposed Procedure Planned Operative Procedure(s): EGD Anesthesia History Anesthesia History - special population paraprofessional: Anesthesia History - special population paraprofessional Hx Hospitalization No 08/31/25 15:21 Any Problems With Anesthesia No 08/31/25 15:21 Cholinesterase deficiency No 08/31/25 15:21 You/Your Family Experience No 08/31/25 15:21 fever (hyperthermia) with Relationship Recent Exposure to Contagious No 09/06/25 08:20 Disease Does patient have nerve No 08/31/25 15:21 stimulator Patient instructed to have device shut off --Does patient have Pacemaker No 09/06/25 08:20 or ICD? When Was Last Pacemaker Check QUESTION #4 FULL TEXT: You/Your Family Experience fever (hyperthermia) with Anesthesia Last Oral Intake Last Oral intake: Last Oral Intake NPO since 19:00 09/06/25 08:20 Meds taken in AM with sips of water? Meds patient instructed to take am of surgery PONV PONV - special population paraprofessional: PONV - special population paraprofessional Female Yes 08/31/25 15:21 HX of Motion Sickness No 08/31/25 15:21 HX of N/V After Surgery No 08/31/25 15:21 Non-Smoker Yes 08/31/25 15:21 Duration of Surgery greater No 08/31/25 15:21 than 60 minutes Number of Risk Factors 2 08/31/25 15:21 PONV Score Moderate Risk 08/31/25 15:21 Height & Weight Height & Weight: Anesthesia: Height & Weight Height 5 ft 09/06/25 08:20 Weight: 63.049 kg 09/06/25 08:20 Body Mass Index (BMI) 27.1 09/06/25 08:20 Respiratory Assessment Respiratory Assessment - special population paraprofessional: Respiratory Tract Infection Hx - special population paraprofessional Hx Respiratory Tract Infection No 08/31/25 15:21 STOP Sleep Apnea STOP Sleep Apnea - special population paraprofessional: STOP Sleep Apnea - special population paraprofessional Hx Hypertension No 08/31/25 15:21 Hx Sleep Apnea No 08/31/25 15:21 CPAP BIPAP Do you snore loudly (louder No 08/31/25 15:21 than talking or can be heard Do you often feel tired/ No 08/31/25 15:21 fatigued/ sleepy during daytime? Has anyone observed you stop No 08/31/25 15:21 breathing during sleep? STOP Results Negative 11/13/25 15:21 QUESTION #5 FULL TEXT : Do you snore loudly (louder than talking or can be heard through closed doors)? Tobacco Use History Tobacco Use History - special population paraprofessional: Tobacco Use History - special population paraprofessional Tobacco Use Smoking Status Never smoker 08/31/25 15:21 Hx Tobacco Use No 08/31/25 15:21 Years Smoking Packs Smoked per Day Smoking Cessation Date was within the last 15 years Hx Smoking Cessation Date Hx Smoking Cessation Counseling Hematologic Medial History Hematologic Hx - special population paraprofessional: Hematologic Medical Hx - museum technician Hx of Blood Transfusion No 08/31/25 15:21 Hx of Transfusion in last 3 No 08/31/25 15:21 Months Date of Last Transfusion (if within last 3 months) Ever experience any problems No 08/31/25 15:21 with transfusion(s)? Specify any problems Hx of Preganancy in last 3 No 08/31/25 15:21 Months Nurse Filling Out Transfusion [email or web address] 08/31/25 15:21 & Questions: Date: 08/31/25 08/31/25 15:21 Time: 15:23 08/31/25 15:21 Patient unable to answer at this time (ie. confused, unrespo /Reproduction History /Reproductive History - special population paraprofessional: /Reproductive Hx- special population paraprofessional Hx Now Gestational Age (in weeks): EDC: Hx Hx Para Hx Section SAB No 08/31/25 15:21 Does the father of the baby or his family experience fever w Father of the baby Malignant Hypertension history comment Active Medications Active Medications: Current Medications Generic Name Dose Route Start Last Admin Trade Name Freq PRN Reason Stop Dose Admin Lactated Ringer's 1,000 mls @ 15 mls/hr 09/06/25 08:15 09/06/25 08:22 IV 15 mls/hr .Q48H JOSELUIS Administration PFSH Medical History Wears glasses Arthritis High cholesterol Dietary restriction Gastric reflux Non-smoker Hypertension Myalgia Genital herpes in women Depression with anxiety DDD (degenerative disc disease), lumbar Diabetes mellitus Home Medications ?Medication ?Instructions ?Recorded ?Last Taken ?Type citalopram 20 mg tablet 20 mg PO DAILY 08/29/1508/19 History atorvastatin 20 mg tablet 20 mg PO QHS 03/13/25 History lisinopril 2.5 mg tablet 2.5 mg PO DAILY 03/13/25 History metformin 500 mg tablet,extended 1,000 mg PO BID 03/1304/17/25 History release 24 hr ondansetron 4 mg disintegrating 4 mg PO Q8H PRN PRN Na usea #10 tabs 03/13/25 Unknown Rx tablet zolpidem 10 mg tablet 10 mg PO QHS PRN PRN insomni a 03/13/25 09/05/25 History baclofen 5 mg tablet 5 mg PO TID PRN pain 5 Unknown History pantoprazole 40 mg tablet,delayed 40 mg PO DAILY 1 thu th #30 tabs 04/24/25 09/05/25 Rx release buspirone 15 mg tablet 15 mg PO BID 08/31/25 History sucralfate 1 gram tablet 1 g PO BID PRN stomach upset 08/31/25 Unknown History Allergy/AdvReac Type Severity Reaction Status Date / Time Penicillins (PCN) Allergy Abd Verified 09/06/25 08:13 cramps/diarrhea Sulfa (Sulfonamide Allergy Hives Verified 09/06/25 08:13 Antibiotics) Family History Mother Diabetes Heart disease Chronic mental illness Father Hypertension Lung cancer Sister TIA (transient ischemic attack) Surgical History Hx of oral surgery Hx of colonoscopy H/O tubal ligation H/O section Social History Smoking Status: Never smoker alcohol intake: current Review of Systems (Anesthesia) ROS Narrative System reviewed and no additional complaints, except as documented.
--- NOTE | 2025-09-06 08:45 | EGD_PTH ---
PATIENT: ADORE SAAVEDRA LOC: EN U#:[id number] AGE/SX: 65/F ROOM: RE09/06/[address]: Dr. Pedro Zendejas DO : 1960 BED: DIS: 09/06/2025 SPEC #: [id number] RECD: 09/06/25 11:10 STATUS: CARMELA REClaritza #: [id number] MAUREEN: 09/06/25 08:[address]: Pedro Zendejas DEPT: SURGICAL PATHOLOGY RECD BY: Duglas Vail ENTERED: 09/06/25 14:31 SP TYPE: EGD BIOPSY OT DR: JOSE PATEL, DIGITAL ASSOCIATE MEDIA DIRECTOR-Isabella Tissues: A - Gastric mucous membrane Procedures: Immunohistochemical Stains Surgery Specimen Level IV HEADER OPERATION: EGD with biopsy PRE-OP DIAGNOSIS: Gastroparesis, epigastric pain, abnormal weight loss TISSUE SUBMITTED: A- Gastric body biopsy MICROSCOPIC DIAGNOSIS A. Stomach, body, biopsy: - Gastric mucosa with chronic focal active inflammation with reactive changes, areas of intestinal metaplasia and focal pancreatic acinar cell metaplasia - No morphologic evidence of Helicobacter pylori organisms is identified on H&E or immunostained sections MICROSCOPIC DESCRIPTION Slides are reviewed. All matched controls reacted appropriately. These tests were developed and their performance characteristics determined by [facility]. They may not have been cleared or approved by the [place]. Food and Drug Administration. The FDA has determined that such clearance or approval is not necessary. The above immunohistochemical markers are viewed by the Pathologist. GROSS DESCRIPTION A. Received in fixative is one container labeled with the patient's name and designated Gastric body biopsy. The specimen consists of three irregular fragments of machado tissue that measure 0.2 to 0.6 cm. The specimen is totally submitted in one cassette. [place] 09/06/2025 CPT:[id number]
--- NOTE | 2025-09-06 09:08 | PCM.POST.ANE ---
Anesthesia: Postop Eval I Current Vital Signs Temperature: 97.5 F Pulse Rate: 82 Blood Pressure: 100/60 Respiratory Rate: 16 Pulse Ox: 91 Oxygen Delivery Method: Room Air Assessment Airway patent: Yes Spontaneous unlabored respirations: Yes Mental status: Asleep nausea: No Vomiting: No Anesthesia Complication: No Fluid Hydration Crystalloid volume administer (ml): 400 Total IV fluid infused: 400 Progress Note Anesthesia document: Postop Eval 1 completed: Yes
--- NOTE | 2025-09-06 09:10 | OP.EGD_ITS ---
Patient Name: Ursula Kay Procedure Date: 09/06/2025 8:41 AM Date of : 1960 Age: 65 Procedure: Upper GI endoscopy Indications: Epigastric abdominal pain, Suspected gastroparesis Providers: Pedro Zendejas DO Referring MD: Taniya Yeh Medicines: Monitored Anesthesia Care Patient Profile: This is a 65 year old female. Refer to note in patient chart for documentation of history and physical. Patient has symptoms of acute abdominal cramping, chronic abdominal distention, chronic epigastric abdominal pain and chronic nausea. Complications: No immediate complications. Procedure: Pre-Anesthesia Assessment: - Prior to the procedure, a History and Physical was performed, and patient medications and allergies were reviewed. The patient is competent. The risks and benefits of the procedure and the sedation options and risks were discussed with the patient. All questions were answered and informed consent was obtained. Patient identification and proposed procedure were verified by the physician in the pre-procedure area. Mental Status Examination: alert and oriented. Airway Examination: normal oropharyngeal airway and neck mobility. Respiratory Examination: clear to auscultation. CV Examination: normal. Prophylactic Antibiotics: The patient does not require prophylactic antibiotics. Prior Anticoagulants: The patient has taken no anticoagulant or antiplatelet agents. ASA Grade Assessment: II - A patient with mild systemic disease. After reviewing the risks and benefits, the patient was deemed in satisfactory condition to undergo the procedure. The anesthesia plan was to use monitored anesthesia care (MAC). Immediately prior to administration of medications, the patient was re-assessed for adequacy to receive sedatives. The heart rate, respiratory rate, oxygen saturations, blood pressure, adequacy of pulmonary ventilation, and response to care were monitored throughout the procedure. The physical status of the patient was re-assessed after the procedure. After obtaining informed consent, the endoscope was passed under direct vision. Throughout the procedure, the patient's blood pressure, pulse, and oxygen saturations were monitored continuously. The Endoscope was introduced through the mouth, and advanced to the third part of the duodenum. Small bowel enteroscopy was deemed necessary. The upper GI endoscopy was accomplished with ease. The patient tolerated the procedure well. Scope In: 8:55:17 AM Scope Out: 8:56:11 AM Total Procedure Duration Time 0 hours 0 minutes 54 seconds Findings: The examined esophagus was normal. Suspect gastroparesis due to absence of peristalsis, patient symptoms and retained gastric contents. Biopsies were taken with a cold forceps for histology. Verification of patient identification for the specimen was done. Estimated blood loss was minimal. Biopsies were taken with a cold forceps for Helicobacter pylori testing. Verification of patient identification for the specimen was done. Estimated blood loss was minimal. No gross lesions were noted in the entire examined duodenum. Impression: - Normal esophagus. - Gastroparesis, secondary to drug side effect. Biopsied. - No gross lesions in the entire examined duodenum. Recommendation: - Discharge patient to home. - Resume previous diet. - Continue present medications. - Await pathology results. Procedure Code(s): --- Professional --- 76603, Small intestinal endoscopy, enteroscopy beyond second portion of duodenum, not including ileum; with biopsy, single or multiple CPT copyright 2021 [employer]. All rights reserved. The codes documented in this report are preliminary and upon copy center specialist review may be revised to meet current compliance requirements. Pedro Zendejas DO 09/06/2025 9:10:25 AM This report has been signed electronically. Number of Addenda: 0 Note Initiated On: 09/06/2025 8:41 AM
--- NOTE | 2025-09-06 09:10 | OP.PROVAT_ITS ---
09/06/2025 Taniya Yeh Re : Upper GI endoscopy procedure for Ursula Kay Dear Lisandra This procedure was performed on Saturday, September 06, 2025. My impressions and recommendations are as follows: Impressions : - Normal esophagus. - Gastroparesis, secondary to drug side effect. Biopsied. - No gross lesions in the entire examined duodenum. Recommendations : - Discharge patient to home. - Resume previous diet. - Continue present medications. - Await pathology results. My findings are described in the full procedure note, which is enclosed. If I can be of further assistance, please feel free to contact me at . Sincerely, Pedro Zendejas, 09/06/2025 9:10:25 AM This report has been signed electronically.
--- NOTE | 2025-09-06 16:33 | PCM.POSTANE2 ---
Anesthesia Postop Eval I Sum Postop Eval Completion status Anesthesia document: Postop Eval 1 completed: Yes Anesthesia Postop Eval I Summary Anesthesia Postop Eval I Summary: Anesthesia Postop Eval I: Assessment Summary Airway patent Yes 09/06/25 09:19 [email or web address] Spontaneous unlabored Yes 09/06/25 09:19 [email or web address] respirations Mental status Asleep 09/06/25 09:19 [email or web address] nausea No 09/06/25 09:19 [email or web address] Vomiting No 09/06/25 09:19 [email or web address] Anesthesia Postop Eval I: Fluid Summary Crystalloid volume administer 400 09/06/25 09:19 [email or web address] (ml) Colloids volume administered ( ml) Blood Product volume administered (ml) Total IV fluid infused 400 09/06/25 09:19 [email or web address] Anesthesia Postop Eval I: Summary Notes Anesthesia Complication No 09/06/25 09:19 [email or web address] Anesthesia Complication Comment: Post-operative progress note Anesthesia: Postop Eval II Evaluation Mental status: Awake Pain Level: 0 nausea: No Vomiting: No
== END 2025-09-06 09:47 | disposition home or self-care (01) ==
LOC: EN 07:43 → AC 07:48
PROVIDERS: PCP Nurse Practitioner Family; Referring Provider Nurse Practitioner Family; Visit Provider Internal Medicine Gastroenterology
PROC: 0DJ08ZZ Inspection of Upper Intestinal Tract, Via Natural or Artificial Opening Endoscopic (ICD-10-PCS; CPT 43235; principal; 2025-09-06 08:40)
DX: R10.13 Epigastric pain (principal); E11.9 Type 2 diabetes mellitus without complications; E78.00 Pure hypercholesterolemia, unspecified; K21.9 Gastro-esophageal reflux disease without esophagitis; K31.84 Gastroparesis; Z79.84 Long term (current) use of oral hypoglycemic drugs; R63.4 Abnormal weight loss; I10 Essential (primary) hypertension; F41.8 Other specified anxiety disorders; Z79.899 Other long term (current) drug therapy; Z98.51 Tubal ligation status; K29.50 Unspecified chronic gastritis without bleeding; K31.A19 Gastric intestinal metaplasia without dysplasia, unspecified site; K86.89 Other specified diseases of pancreas; T50.995A Adverse effect of other drugs, medicaments and biological substances, initial encounter
CPT/HCPCS: 44361; 82962; 88305; 88342; J2405

== ENCOUNTER → 2025-09-25 | Outpatient (CLI) | payer MEDICARE, SELFPAY ==
[2025-09-25 11:51] LABS: Hematocrit 37.0 % (37-47); Hemoglobin 11.9 g/dL (12.0-15.0); Mean Corp Hgb Conc 32.2 g/dL (32-36); Mean Corpuscular Volume 85.6 fL (81-99); Mean Platelet Vol. 9.3 fl (6.2-12.0); Platelet Count 263 K/mm3 (150-450); RBC Distribution Width CV 13.9 % (11.6-14.6); RBC Distribution Width SD 43.5 fl (35.1-43.9); Red Blood Count 4.32 M/mm3 (4.2-5.4); White Blood Count 8.1 K/mm3 (4.4-11.0)
[2025-09-25 12:27] LABS: Creatinine, Urine (random) 32.20 mg/dL (28.00-217.00); Microalbumin,Random Urine 19.7 mg/L (<20 mg/L)
[2025-09-25 13:00] LABS: Cholesterol 118 mg/dL (<=200); Low Density Lipoprotein Calc. 62 mg/dL; Triglycerides 57 mg/dL; Very Low Density Lipoprotein 11 mg/dL (5-40); cholesterol:hdl ratio screen 2.73
[2025-09-25 13:01] LABS: AST(SGOT) 19 U/L (<=31); Alanine Aminotransfer ALT/SGPT < 5 U/L (<=34); Albumin, Serum 4.3 g/dL (3.4-4.8); Alkaline Phosphatase 61 U/L (35-104); Anion Gap 9 (5-15); BUN 24 mg/dL (4-19); BUN/Creat Ratio 27.7 RATIO (10-20); Calcium,Total 9.4 mg/dL (7.6-11.0); Carbon Dioxide 26.3 mmol/L (21.0-32.0); Chloride 102 mmol/L (98-108); Globulin 2.3 g/dL (2.2-4.2); Glucose 102 mg/dL (70-99); Potassium 4.5 mmol/L (3.3-5.1)
== END | disposition home or self-care (01) ==
LOC: LAB 11:03
PROVIDERS: PCP Nurse Practitioner Family; Referring Provider Nurse Practitioner Family; Visit Provider Nurse Practitioner Family
DX: Z00.00 Encounter for general adult medical examination without abnormal findings (principal); E11.9 Type 2 diabetes mellitus without complications
CPT/HCPCS: 36415; 80053; 80061; 82043; 82570; 83036; 85027